=== PATIENT | female | born 1960 | race African-American/Black ===

== ENCOUNTER 2017-03-16 08:51 | Emergency (ER) | payer OTHER ==
[~2017-03-16] VITALS: Ht 175.3 cm; Wt 85.7 kg
[~2017-03-16 08:51] MED LIST: CLIN300C8 PO; ERGO500027 PO; FENT1PAT17 TD; FURO40TA4 PO; HYDR-971 PO; HYDR12.53 PO; HYDR200T5 PO; HYDR40TA PO; NITR100C62 PO; OMEP20CA9 PO; TRAM50TA PO
[2017-03-16 09:13] VITALS: BP 137/89
[2017-03-16] MEDS ORDERED: MUPIROCIN 2 % TOPICAL CREAM 15GM TUBE. TP STA (09:24)
[2017-03-16] MEDS ORDERED: DIPHTH,PERTUSS(ACELL),TET TOX 0.5 ML DISP.SYRIN. VAX IM ONE (09:30)
[2017-03-16] MEDS ORDERED: HYDROcodone/APAP 5/325MG 1 TAB TABLET PO ONE (09:30)
[2017-03-16] MEDS ORDERED: CLINDAMYCIN HCL 150 MG CAPSULE. PO ONE (09:30)
--- NOTE | 2017-03-16 09:32 | PHYS DOC ---
Past Medical History Past Medical History: Arthritis, Hypertension, Other Additional Past Medical Histor: LUPUS Past Surgical History: Alcohol Use: None Drug Use: Marijuana Adult General Chief Complaint Chief Complaint: ABSCESS HPI HPI Patient is a 56 year old female with history of hypertension, arthritis and lupus who presents with "boils" on her abdomen and right inner thigh that she's had for 1-1/2 weeks. Patient states the boils opened up yesterday and drained. Patient denies any fever. Denies any nausea vomiting. She states she has a new PCP Dr. Bond Review of Systems Review of Systems Constitutional: Denies fever or chills [] Eyes: Denies change in visual acuity, redness, or eye pain [] Musculoskeletal: Denies back pain or joint pain [] Integument: Right lower abdomen abscess and right inner thigh abscess Neurologic: Denies headache, focal weakness or sensory changes [] Endocrine: Denies polyuria or polydipsia [] Current Medications Current Medications Current Medications Medications (Trade) Dose Ordered Sig/[place] Start Time Stop Time Status Last Admin Dose Admin Acetaminophen/ Hydrocodone Bitart (Lortab 5/325) 2 tab 1X ONCE 03/16/17 09:30 03/16/17 09:31 DC Clindamycin HCl (Cleocin) 450 mg 1X ONCE 03/16/17 09:30 03/16/17 09:31 DC Diphtheria/ Tetanus/Acell Pertussis (Boostrix) 0.5 ml ONCE ONCE 03/16/17 09:30 03/16/17 09:31 DC Mupirocin (Bactroban) 1 naif 1X STAT 03/16/17 09:24 03/16/17 09:27 DC Allergies Allergies Allergies Coded Allergies Type Severity Reaction Last Updated Verified Penicillins Allergy Intermediate 01/02/14 Yes Physical Exam Physical Exam Constitutional: Well developed, well nourished, no acute distress, non-toxic appearance. [] HENT: Normocephalic, atraumatic, bilateral external ears normal, oropharynx moist, no oral exudates, nose normal. [] Eyes: PERRLA, EOMI, conjunctiva normal, no discharge. [] Neck: Normal range of motion, no tenderness, supple, no stridor. [] Cardiovascular:Heart rate regular rhythm, no murmur [] Lungs & Thorax: Bilateral breath sounds clear to auscultation [] Abdomen: Bowel sounds normal, soft, no tenderness, no masses, no pulsatile masses. [] Skin: Right abdominal flap with a stage II ulcer approximately 3 x 3 cm and right inner thigh with another stage II ulcer approximately 2 x 2 centimeters. Back: No tenderness, no CVA tenderness. [] Extremities: No tenderness, no cyanosis, no clubbing, ROM intact, no edema. [] Neurologic: Alert and oriented X 3, normal motor function, normal sensory function, no focal deficits noted. [] Psychologic: Affect normal, judgement normal, mood normal. [] Current Patient Data Vital Signs Vital Signs Date Time Temp Pulse Resp B/P (MAP) Pulse Ox O2 Delivery O2 Flow Rate FiO2 03/16/17 09:13 97.9 67 20 98 Room Air 97.9 EKG EKG [] Radiology/Procedures Radiology/Procedures [] Course & Med Decision Making Course & Med Decision Making Pertinent Labs and Imaging studies reviewed. (See chart for details) Patient has two stage II ulcers one on the right lower abdominal flap and the other one on the right inner thigh. She states they were abscesses that opened up yesterday. She was given tetanus in the ED, given clindamycin in the ED. Discharged with clindamycin and Bactroban cream and [place] for pain. I recommended she follows up with the wound clinic tomorrow for wound care. She was discharged with instructions to return to the ED symptoms worsen. Dragon Disclaimer Dragon Disclaimer This electronic medical record was generated, in whole or in part, using a voice recognition dictation system. Departure Departure Impression: Primary Impression: Abdominal wall abscess Additional Impression: Abscess of right thigh Disposition: 01 HOME, SELF-CARE Condition: STABLE Referrals: NO PCP (PCP) Follow up with the wound clinic at [facility] tomorrow. Call them today for appointment. Their phone number is [phone] Patient Instructions: Abscess Additional Instructions: You were seen for abscesses that opened up on your abdomen and right inner thigh. We put you on antibiotics. Use them as prescribed. Keep the affected areas clean and dry. Follow-up with the wound clinic by calling the office tomorrow. The wound clinic is at [facility]. Their phone number is [phone]. Scripts Mupirocin Calcium (BACTROBAN CREAM) 15 Gm Cream..g. 1 NAIF TP TID, #30 GM Prov: KAMILA CANAS APRN 03/16/17 Clindamycin Hcl (CLINDAMYCIN HCL) 150 Mg Capsule 3 CAP PO TID, #90 CAP Prov: KAMILA CANAS APRN 03/16/17 Hydrocodone/Apap 5-325 (NORCO 5-325 TABLET) 1 Each Tablet 1-2 TAB PO Q4-6HRS, #20 TAB Prov: KAMILA CANAS APRN 03/16/17 Problem Qualifiers KAMILA CANAS APRN Mar 16, 2017 09:32
[2017-03-16] MEDS ORDERED: CLIN150C14 PO (09:42)
[2017-03-16] MEDS ORDERED: MUPI15CR TP (09:42)
[2017-03-16] MEDS ORDERED: HYDR-971 PO (09:42)
== END 2017-03-16 10:13 | disposition home or self-care (01) ==
LOC: ER 08:51
DX: L02.211 Cutaneous abscess of abdominal wall (principal); L02.415 Cutaneous abscess of right lower limb; I10 Essential (primary) hypertension; M19.90 Unspecified osteoarthritis, unspecified site; M32.9 Systemic lupus erythematosus, unspecified; F12.10 Cannabis abuse, uncomplicated; Z98.890 Other specified postprocedural states; Z88.0 Allergy status to penicillin
CPT/HCPCS: 90471; 90715; 99284-25

== ENCOUNTER 2017-05-19 18:32 | Inpatient (IN) | payer OTHER ==
[~2017-05-19] VITALS: Ht 175.3 cm; Wt 89.2 kg
[~2017-05-19 18:32] MED LIST changes: +CLIN150C14 PO; +MUPI15CR TP
[2017-05-19] MEDS ORDERED: NITROGLYCERIN SUBLINGUAL 0.4 MG BOTTLE OF 25. SL PRN (18:45)
[2017-05-19] MEDS ORDERED: MORPHINE SULFATE 2 MG/ML DISP.SYRIN. IV/SQ PRN (18:45)
[2017-05-19] MEDS ORDERED: ONDANSETRON PF 4 MG/2 ML VIAL. IV ONE (19:00)
[2017-05-19] MEDS ORDERED: IV NORMAL SALINE 1000ML BAG 1,000 ML IV ONE ×2 (19:00→20:15)
[2017-05-19] MEDS ORDERED: MORPHINE SULFATE 4 MG/ML DISP.SYRIN. IV/SQ PRN (19:23)
--- NOTE | 2017-05-19 19:23 | PHYS DOC ---
Past Medical History Past Medical History: Arthritis, Hypertension, Other Additional Past Medical Histor: LUPUS Past Surgical History: Alcohol Use: None Drug Use: Marijuana Adult General Chief Complaint Chief Complaint: CHEST PAIN HPI HPI Patient is a 56 year old -[place] female who presents with multiple complaints. She states she's has some chest discomfort only occurs when she turned [id number], she also complains about abdominal pain and 2 episodes of vomiting. She states this all started 2 days ago. She also complains about a fever states her friend checked her temperature was 102 earlier today. She states she's been urinating without any difficulty denies any cough. She states this happens when her lupus flares up. She complains about generalized bodyaches. She also states she hasn't had anything to eat or drink the last 2 days secondary not feeling well. She does admit to marijuana abuse and smoking cigarettes. Review of Systems Review of Systems Constitutional: Positive for fevers Eyes: Denies change in visual acuity, redness, or eye pain [] HENT: Denies nasal congestion or sore throat [] Respiratory: Denies cough or shortness of breath [] Cardiovascular: No additional information not addressed in HPI [] GI: Denies abdominal pain, nausea, vomiting, bloody stools or diarrhea [] : Denies dysuria or hematuria [] Musculoskeletal: Denies back pain, positive for generalized bodyaches Integument: Denies rash or skin lesions [] Neurologic: Denies headache, focal weakness or sensory changes [] Endocrine: Denies polyuria or polydipsia [] Current Medications Current Medications Current Medications Medications (Trade) Dose Ordered Sig/[facility] Start Time Stop Time Status Last Admin Dose Admin Ceftriaxone Sodium 1 gm/ Sodium Chloride 50 ml @ 100 mls/hr 1X STAT 05/19/17 20:17 05/19/17 20:46 UNV Ceftriaxone Sodium 50 ml @ 100 mls/hr 1X ONCE 05/19/17 20:30 05/19/17 20:59 Morphine Sulfate 2 mg PRN Q2HR PRN 05/19/17 20:30 05/20/17 20:29 Nitroglycerin (Nitrostat) 0.4 mg PRN Q5MIN PRN 05/19/17 18:45 05/20/17 18:44 05/19/17 19:41 0.4 MG Ondansetron HCl (Zofran) 4 mg PRN Q8HRS PRN 05/19/17 20:30 05/20/17 20:29 Sodium Chloride 1,000 ml @ 1,000 mls/hr 1X ONCE 05/19/17 20:15 05/19/17 21:14 Allergies Allergies Allergies Coded Allergies Type Severity Reaction Last Updated Verified Penicillins Allergy Intermediate 01/02/14 Yes Physical Exam Physical Exam Constitutional: Well developed, well nourished, no acute distress, non-toxic appearance. [] HENT: Normocephalic, atraumatic, bilateral external ears normal, oropharynx moist, no oral exudates, nose normal. [] Eyes: PERRLA, EOMI, conjunctiva normal, no discharge. [] Neck: Normal range of motion, no tenderness, supple, no stridor. [] Cardiovascular:Heart rate regular rhythm, tachycardic, no murmur [] Lungs & Thorax: Bilateral breath sounds clear to auscultation [] Abdomen: Bowel sounds normal, soft, mild tender palpation right lower quadrant, no rebound or guarding, no masses, no pulsatile masses. [] Skin: Warm, dry, no erythema, no rash. [] Back: No tenderness, no CVA tenderness. [] Extremities: No tenderness, no cyanosis, no clubbing, ROM intact, no edema. [] Neurologic: Alert and oriented X 3, normal motor function, normal sensory function, no focal deficits noted. [] Psychologic: Affect normal, judgement normal, mood normal. [] Current Patient Data Vital Signs Vital Signs Date Time Temp Pulse Resp B/P (MAP) Pulse Ox O2 Delivery O2 Flow Rate FiO2 05/19/17 19:41 103 103/70 05/19/17 19:39 18 95 Room Air 05/19/17 18:41 98.0 98.0 Lab Values Laboratory Tests Test 05/19/17 19:20 05/19/17 19:30 05/19/17 19:47 White Blood Count 2.2 x10^3/uL (4.0-11.0) L Red Blood Count 4.62 x10^6/uL (3.50-5.40) Hemoglobin 13.4 g/dL (12.0-15.5) Hematocrit 40.7 % (36.0-47.0) Mean Corpuscular Volume 88 fL (79-100) Mean Corpuscular Hemoglobin 29 pg (25-35) Mean Corpuscular Hemoglobin Concent 33 g/dL (31-37) Red Cell Distribution Width 14.7 % (11.5-14.5) H Platelet Count 175 x10^3/uL (140-400) Neutrophils (%) (Auto) 44 % (31-73) Lymphocytes (%) (Auto) 45 % (24-48) Monocytes (%) (Auto) 8 % (0-9) Eosinophils (%) (Auto) 2 % (0-3) Basophils (%) (Auto) 1 % (0-3) Neutrophils # (Auto) 1.0 x10^3uL (1.8-7.7) L Lymphocytes # (Auto) 1.0 x10^3/uL (1.0-4.8) Monocytes # (Auto) 0.2 x10^3/uL (0.0-1.1) Eosinophils # (Auto) 0.0 x10^3/uL (0.0-0.7) Basophils # (Auto) 0.0 x10^3/uL (0.0-0.2) Prothrombin Time 14.5 SEC (11.7-14.0) H Prothrombin Time INR 1.2 (0.8-1.1) H Urine Collection Type Unknown Urine Color Disha Urine Clarity Turbid Urine pH 5.0 Urine Specific [place] 1.020 Urine Protein 100 mg/dL (NEG-TRACE) Urine Glucose (UA) Negative mg/dL (NEG) Urine Ketones (Stick) Trace mg/dL (NEG) Urine Blood Large (NEG) Urine Nitrite Negative (NEG) Urine Bilirubin Moderate (NEG) Urine Urobilinogen Dipstick 1.0 mg/dL (0.2 mg/dL) Urine Leukocyte Esterase Moderate (NEG) Urine RBC 0 /HPF (0-2) Urine WBC 5-10 /HPF (0-4) Urine Squamous Epithelial Cells Mod /LPF Urine Bacteria Many /HPF (0-FEW) Urine Hyaline Casts Few /HPF Urine Mucus Mod /LPF Urine Opiates Screen Neg (NEG) Urine Methadone Screen Neg (NEG) Urine Barbiturates Neg (NEG) Urine Phencyclidine Screen Neg (NEG) Urine Amphetamine/Methamphetamine Neg (NEG) Urine Benzodiazepines Screen Neg (NEG) Urine Cocaine Screen Pos (NEG) Urine Cannabinoids Screen Pos (NEG) Urine Ethyl Alcohol Neg (NEG) Sodium Level 135 mmol/L (136-145) L Potassium Level 3.8 mmol/L (3.5-5.1) Chloride Level 100 mmol/L (98-107) Carbon Dioxide Level 23 mmol/L (21-32) Anion Gap 12 (6-14) Blood Urea Nitrogen 42 mg/dL (7-20) H Creatinine 2.8 mg/dL (0.6-1.0) H Estimated GFR (Cockcroft-Gault) 21.2 Glucose Level 115 mg/dL (70-99) H Calcium Level 8.7 mg/dL (8.5-10.1) Magnesium Level 2.2 mg/dL (1.8-2.4) Total Bilirubin 0.6 mg/dL (0.2-1.0) Direct Bilirubin 0.3 mg/dL (0.0-0.2) H Aspartate Amino Transferase (AST) 40 U/L (15-37) H Alanine Aminotransferase (ALT) 58 U/L (14-59) Alkaline Phosphatase 91 U/L (46-116) Creatine Kinase 25 U/L (26-192) L Creatine Kinase MB (Mass) < 0.5 ng/mL (0.0-3.6) Creatine Kinase MB Relative Index % (0-4) Troponin I Quantitative < 0.017 ng/mL (0.000-0.055) YL-Xsc-J-Type Natriuretic Peptide 178 pg/mL (0-124) H Total Protein 8.2 g/dL (6.4-8.2) Albumin 3.0 g/dL (3.4-5.0) L Lipase 73 U/L (73-393) Thyroid Stimulating Hormone (TSH) 1.089 uIU/mL (0.358-3.74) Laboratory Tests 05/19/17 19:20 Laboratory Tests 05/19/17 19:47 EKG EKG EKG shows sinus tachycardia [address] elevations, T-wave flattening in aVL, left axis deviation noted, incomplete right bundle branch morphology noted, QTC 430 ms, as interpreted by me. Radiology/Procedures Radiology/Procedures One view chest x-ray did not show any focal consolidations, bony abnormalities, pneumothorax, as interpreted by me. [] Impressions: Acute renal failure Chest pain Lupus Hypertension Marijuana abuse Cocaine abuse Course & Med Decision Making Course & Med Decision Making Pertinent Labs and Imaging studies reviewed. (See chart for details) Patient presented with tachycardia and chest pain. EKG does not show any acute abnormality's and her tachycardia has improved with 1 L of fluids down to 87. She is afebrile even though she told me she had a fever at home. Urine shows positive for possible urinary tract infection in addition to marijuana and cocaine. She still denies using cocaine but admits to marijuana use. Chest x- ray does not show any focal lesions or abnormalities. I did obtain 2 blood cultures and give her a dose of ceftriaxone. She has a allergy to penicillin and she has tolerated ceftriaxone in the past. I'm not concerned with her abdominal pain that she was mildly tender in the right lower quadrant. This could be related to her urinary tract infection. Patient is being admitted to Dr. Gleason. I spoke with Dr. Norman and she is not a patient of Dr. Norman's. I did give the patient 2 L of normal saline secondary to her renal insufficiency. Will defer to hospitalist regarding the need of prednisone/steroids at this time. I believe her renal failure at this time is likely dehydration. Dragon Disclaimer Dragon Disclaimer This electronic medical record was generated, in whole or in part, using a voice recognition dictation system. Departure Departure Impression: Primary Impression: UTI (urinary tract infection) Additional Impression: Chest pain Disposition: ADMITTED INPATIENT Admitting Physician: Mirtha Gleason Condition: STABLE Referrals: ISABEL NORMAN MD (PCP) Problem Qualifiers Primary Impression: UTI (urinary tract infection) Urinary tract infection type: acute cystitis Hematuria presence: without hematuria Qualified Codes: N30.00 - Acute cystitis without hematuria Additional Impression: Chest pain Chest pain type: other chest pain Qualified Codes: R07.89 - Other chest pain LURDES OJEDA MD May 19, 2017 19:23
[2017-05-19 19:33] LABS: BASO % 1 % (0-3); EOS % 2 % (0-3); HEMATOCRIT 40.7 % (36.0-47.0); HEMOGLOBIN 13.4 g/dL (12.0-15.5); LYMPH % 45 % (24-48); MEAN CORPUSCULAR HEMOGLOBIN 29 pg (25-35); MEAN CORPUSCULAR HGB CONC 33 g/dL (31-37); MEAN CORPUSCULAR VOLUME 88 fL (79-100); MONO % 8 % (0-9); NEUT % 44 % (31-73); PLATELET COUNT 175 x10^3/uL (140-400); RED BLOOD COUNT 4.62 x10^6/uL (3.50-5.40); RED CELL DISTRIBUTION WIDTH 14.7 % (11.5-14.5); WHITE BLOOD COUNT 2.2 x10^3/uL (4.0-11.0)
[2017-05-19 19:43] LABS: INR 1.2 (0.8-1.1); PROTHROMBIN TIME PATIENT 14.5 SEC (11.7-14.0)
[2017-05-19 19:52] LABS: BILIRUBIN,URINE MODERATE (NEG); GLUCOSE,URINE NEGATIVE (NEG); NITRITE,URINE NEGATIVE (NEG); PROTEIN,URINE 100 mg/dL (NEG-TRACE)
[2017-05-19 19:58] LABS: RBC,URINE 0 /HPF (0-2)
[2017-05-19 19:59] LABS: BACTERIA,URINE MANY /HPF (0-FEW); BARBITURATES NEG (NEG); BENZODIAZEPINES NEG (NEG); CANNABINOIDS POS (NEG); COCAINE POS (NEG); METHADONE NEG (NEG); OPIATES NEG (NEG); PHENCYCLIDINE NEG (NEG); SQUAMOUS EPITHELIAL CELL,UR MOD /LPF
[2017-05-19 20:10] LABS: CALCIUM 8.7 mg/dL (8.5-10.1); CREATININE 2.8 mg/dL (0.6-1.0); GFR 21.2; POTASSIUM 3.8 mmol/L (3.5-5.1)
[2017-05-19 20:17] LABS: DIRECT BILIRUBIN 0.3 mg/dL (0.0-0.2); MAGNESIUM 2.2 mg/dL (1.8-2.4); TOTAL BILIRUBIN 0.6 mg/dL (0.2-1.0); TOTAL PROTEIN 8.2 g/dL (6.4-8.2)
[2017-05-19 20:26] LABS: CKMB MASS < 0.5 ng/mL (0.0-3.6); CREATINE KINASE 25 U/L (26-192)
[2017-05-19] MEDS ORDERED: MORPHINE SULFATE 4 MG/ML DISP.SYRIN. IV PRN (20:30)
[2017-05-19] MEDS ORDERED: ONDANSETRON PF 4 MG/2 ML VIAL. IV PRN ×2 (20:30→21:00)
[2017-05-19] MEDS ORDERED: hydrALAZINE 20 MG/ML VIAL. IVP PRN (21:00)
[2017-05-19] MEDS ORDERED: ACETAMINOPHEN 325 MG TABLET. PO PRN (21:00)
[2017-05-19] MEDS ORDERED: FAMOTIDINE 20 MG TABLET. PO ONE (21:00)
[2017-05-19] MEDS ORDERED: DOCUSATE SODIUM 100 MG CAPSULE. PO PRN (21:00)
[2017-05-19] MEDS ORDERED: IV NORMAL SALINE 1000ML BAG 1,000 ML IV PRN (21:00)
[2017-05-19] MEDS ORDERED: predniSONE 20 MG TABLET PO ONE (21:00)
--- NOTE | 2017-05-19 21:02 | PDOC1 ---
History and Physical Date of Admission Date of Admission 05/19/17 Identification/Chief Complaint Chief Complaint chest pain, whole body pain, lupus flare Problems: Source Source: Chart review, Patient History of Present Illness History of Present Illness HPI HPI Patient is a 56 year old -[place] female who presents with multiple complaints x3 days, including chest pain, whole body pain, "lupus flare". pt said her PCP is dr. Bond, who said no as per ERP. pt said she was definitely diagnosed as lupus, but not following any rheum for a long time and has an appt soon, and not treated currently. Pt feel bl face pain, with skin rash, bl ear pain, and headache. ALSO chest pain , sharp, with sob, nausea x3days, pain radiating to right shoulder. She also has diffuse abd pain with tenderness. low po intake, denies dysuria, frequence, urgency, but has incontinence x1 week. denies fver, chills, cough, + vomiting today, no diarrhea. She also complains about a fever states her friend checked her temperature was 102 earlier today. Past Medical History Cardiovascular: HTN, Other Pulmonary: Asthma GI: No pertinent hx Heme/Onc: Other Hepatobiliary: No pertinent hx Psych: No pertinent hx Rheumatologic: Other Infectious disease: No pertinent hx Renal/: No pertinent hx Endocrine: Diabetes Past Surgical History Past Surgical History: Family History Family History: Coronary Artery Disease Social History Smoke: <1 pack per day ALCOHOL: none Drugs: Cocaine, Marijuana Current Problem List Problem List Problems Medical Problems: (1) Chest pain Status: Acute (2) UTI (urinary tract infection) Status: Acute Current Medications Current Medications Current Medications Medications (Trade) Dose Ordered Sig/[place] Start Time Stop Time Status Last Admin Dose Admin Acetaminophen (Tylenol) 650 mg PRN Q6HRS PRN 05/19/17 21:00 UNV Ceftriaxone Sodium 1 gm/ Sodium Chloride 50 ml @ 100 mls/hr Q24H 05/20/17 08:00 UNV Ceftriaxone Sodium 50 ml @ 100 mls/hr 1X ONCE 05/19/17 20:30 05/19/17 20:59 05/19/17 20:35 100 MLS/HR Docusate Sodium (Colace) 100 mg PRN DAILY PRN 05/19/17 21:00 UNV Hydralazine HCl (Apresoline) 10 mg PRN Q4HRS PRN 05/19/17 21:00 UNV Morphine Sulfate 2 mg PRN Q2HR PRN 05/19/17 21:00 UNV Nitroglycerin (Nitrostat) 0.4 mg PRN Q5MIN PRN 05/19/17 18:45 05/20/17 18:44 05/19/17 19:41 0.4 MG Ondansetron HCl (Zofran) 4 mg PRN Q6HRS PRN 05/19/17 21:00 UNV Sodium Chloride 1,000 ml @ 1,000 mls/hr 1X ONCE 05/19/17 20:15 05/19/17 21:14 05/19/17 20:35 1,000 MLS/HR Tramadol HCl (Ultram) 50 mg PRN Q6HRS PRN 05/19/17 21:00 UNV Allergies Allergies Allergies Coded Allergies Type Severity Reaction Last Updated Verified Penicillins Allergy Intermediate 01/02/14 Yes ROS Review of System CONSTITUTIONAL: No fever or chills EYES: No recent changes SKIN: No rash or itching CARDIOVASCULAR: No chest pain, syncope, palpitations, or edema RESPIRATORY: No SOB or cough GASTROINTESTINAL: No nausea, vomiting or abdominal pain NEUROLOGICAL: No headaches or weakness ENDOCRINE: No cold or heat intolerance GENITOURINARY: No urgency or frequency of urination MUSCULOSKELETAL: No back pain or joint pain LYMPHATICS: No enlarged lymph nodes PSYCHIATRIC: No anxiety or depression Physical Exam Physical Exam GEN.: No apparent distress. Alert and oriented. HEENT: Head is normocephalic, atraumatic. bl face some dark rash, tenderness. NECK: Supple. LUNGS: Clear to auscultation. chest wall and abd diffused moderate tenderness. HEART: RRR, S1, S2 present. Peripheral pulses intact ABDOMEN: Soft, Positive bowel sounds. EXTREMITIES: Without any cyanosis. NEUROLOGIC: Normal speech, normal tone PSYCHIATRIC: Normal affect, normal mood. SKIN: No ulcerations Vitals Vitals Vital Signs Date Time Temp Pulse Resp B/P (MAP) Pulse Ox O2 Delivery O2 Flow Rate FiO2 05/19/17 20:44 90 18 107/60 (76) 96 Room Air 05/19/17 18:41 98.0 98.0 Labs Labs Laboratory Tests Test 05/19/17 19:20 05/19/17 19:30 05/19/17 19:47 White Blood Count 2.2 x10^3/uL (4.0-11.0) Red Blood Count 4.62 x10^6/uL (3.50-5.40) Hemoglobin 13.4 g/dL (12.0-15.5) Hematocrit 40.7 % (36.0-47.0) Mean Corpuscular Volume 88 fL (79-100) Mean Corpuscular Hemoglobin 29 pg (25-35) Mean Corpuscular Hemoglobin Concent 33 g/dL (31-37) Red Cell Distribution Width 14.7 % (11.5-14.5) Platelet Count 175 x10^3/uL (140-400) Neutrophils (%) (Auto) 44 % (31-73) Lymphocytes (%) (Auto) 45 % (24-48) Monocytes (%) (Auto) 8 % (0-9) Eosinophils (%) (Auto) 2 % (0-3) Basophils (%) (Auto) 1 % (0-3) Neutrophils # (Auto) 1.0 x10^3uL (1.8-7.7) Lymphocytes # (Auto) 1.0 x10^3/uL (1.0-4.8) Monocytes # (Auto) 0.2 x10^3/uL (0.0-1.1) Eosinophils # (Auto) 0.0 x10^3/uL (0.0-0.7) Basophils # (Auto) 0.0 x10^3/uL (0.0-0.2) Prothrombin Time 14.5 SEC (11.7-14.0) Prothromb Time International Ratio 1.2 (0.8-1.1) Urine Collection Type Unknown Urine Color Disha Urine Clarity Turbid Urine pH 5.0 Urine Specific [place] 1.020 Urine Protein 100 mg/dL (NEG-TRACE) Urine Glucose (UA) Negative mg/dL (NEG) Urine Ketones (Stick) Trace mg/dL (NEG) Urine Blood Large (NEG) Urine Nitrite Negative (NEG) Urine Bilirubin Moderate (NEG) Urine Urobilinogen Dipstick 1.0 mg/dL (0.2 mg/dL) Urine Leukocyte Esterase Moderate (NEG) Urine RBC 0 /HPF (0-2) Urine WBC 5-10 /HPF (0-4) Urine Squamous Epithelial Cells Mod /LPF Urine Bacteria Many /HPF (0-FEW) Urine Hyaline Casts Few /HPF Urine Mucus Mod /LPF Urine Opiates Screen Neg (NEG) Urine Methadone Screen Neg (NEG) Urine Barbiturates Neg (NEG) Urine Phencyclidine Screen Neg (NEG) Urine Amphetamine/Methamphetamine Neg (NEG) Urine Benzodiazepines Screen Neg (NEG) Urine Cocaine Screen Pos (NEG) Urine Cannabinoids Screen Pos (NEG) Urine Ethyl Alcohol Neg (NEG) Sodium Level 135 mmol/L (136-145) Potassium Level 3.8 mmol/L (3.5-5.1) Chloride Level 100 mmol/L (98-107) Carbon Dioxide Level 23 mmol/L (21-32) Anion Gap 12 (6-14) Blood Urea Nitrogen 42 mg/dL (7-20) Creatinine 2.8 mg/dL (0.6-1.0) Estimated GFR (Cockcroft-Gault) 21.2 Glucose Level 115 mg/dL (70-99) Calcium Level 8.7 mg/dL (8.5-10.1) Magnesium Level 2.2 mg/dL (1.8-2.4) Total Bilirubin 0.6 mg/dL (0.2-1.0) Direct Bilirubin 0.3 mg/dL (0.0-0.2) Aspartate Amino Transf (AST/SGOT) 40 U/L (15-37) Alanine Aminotransferase (ALT/SGPT) 58 U/L (14-59) Alkaline Phosphatase 91 U/L (46-116) Creatine Kinase 25 U/L (26-192) Creatine Kinase MB (Mass) < 0.5 ng/mL (0.0-3.6) Creatine Kinase MB Relative Index % (0-4) Troponin I Quantitative < 0.017 ng/mL (0.000-0.055) IL-Uny-G-Type Natriuretic Peptide 178 pg/mL (0-124) Total Protein 8.2 g/dL (6.4-8.2) Albumin 3.0 g/dL (3.4-5.0) Lipase 73 U/L (73-393) Thyroid Stimulating Hormone (TSH) 1.089 uIU/mL (0.358-3.74) Laboratory Tests Test 05/19/17 19:20 05/19/17 19:30 05/19/17 19:47 White Blood Count 2.2 x10^3/uL (4.0-11.0) Red Blood Count 4.62 x10^6/uL (3.50-5.40) Hemoglobin 13.4 g/dL (12.0-15.5) Hematocrit 40.7 % (36.0-47.0) Mean Corpuscular Volume 88 fL (79-100) Mean Corpuscular Hemoglobin 29 pg (25-35) Mean Corpuscular Hemoglobin Concent 33 g/dL (31-37) Red Cell Distribution Width 14.7 % (11.5-14.5) Platelet Count 175 x10^3/uL (140-400) Neutrophils (%) (Auto) 44 % (31-73) Lymphocytes (%) (Auto) 45 % (24-48) Monocytes (%) (Auto) 8 % (0-9) Eosinophils (%) (Auto) 2 % (0-3) Basophils (%) (Auto) 1 % (0-3) Neutrophils # (Auto) 1.0 x10^3uL (1.8-7.7) Lymphocytes # (Auto) 1.0 x10^3/uL (1.0-4.8) Monocytes # (Auto) 0.2 x10^3/uL (0.0-1.1) Eosinophils # (Auto) 0.0 x10^3/uL (0.0-0.7) Basophils # (Auto) 0.0 x10^3/uL (0.0-0.2) Prothrombin Time 14.5 SEC (11.7-14.0) Prothromb Time International Ratio 1.2 (0.8-1.1) Urine Collection Type Unknown Urine Color Disha Urine Clarity Turbid Urine pH 5.0 Urine Specific [place] 1.020 Urine Protein 100 mg/dL (NEG-TRACE) Urine Glucose (UA) Negative mg/dL (NEG) Urine Ketones (Stick) Trace mg/dL (NEG) Urine Blood Large (NEG) Urine Nitrite Negative (NEG) Urine Bilirubin Moderate (NEG) Urine Urobilinogen Dipstick 1.0 mg/dL (0.2 mg/dL) Urine Leukocyte Esterase Moderate (NEG) Urine RBC 0 /HPF (0-2) Urine WBC 5-10 /HPF (0-4) Urine Squamous Epithelial Cells Mod /LPF Urine Bacteria Many /HPF (0-FEW) Urine Hyaline Casts Few /HPF Urine Mucus Mod /LPF Urine Opiates Screen Neg (NEG) Urine Methadone Screen Neg (NEG) Urine Barbiturates Neg (NEG) Urine Phencyclidine Screen Neg (NEG) Urine Amphetamine/Methamphetamine Neg (NEG) Urine Benzodiazepines Screen Neg (NEG) Urine Cocaine Screen Pos (NEG) Urine Cannabinoids Screen Pos (NEG) Urine Ethyl Alcohol Neg (NEG) Sodium Level 135 mmol/L (136-145) Potassium Level 3.8 mmol/L (3.5-5.1) Chloride Level 100 mmol/L (98-107) Carbon Dioxide Level 23 mmol/L (21-32) Anion Gap 12 (6-14) Blood Urea Nitrogen 42 mg/dL (7-20) Creatinine 2.8 mg/dL (0.6-1.0) Estimated GFR (Cockcroft-Gault) 21.2 Glucose Level 115 mg/dL (70-99) Calcium Level 8.7 mg/dL (8.5-10.1) Magnesium Level 2.2 mg/dL (1.8-2.4) Total Bilirubin 0.6 mg/dL (0.2-1.0) Direct Bilirubin 0.3 mg/dL (0.0-0.2) Aspartate Amino Transf (AST/SGOT) 40 U/L (15-37) Alanine Aminotransferase (ALT/SGPT) 58 U/L (14-59) Alkaline Phosphatase 91 U/L (46-116) Creatine Kinase 25 U/L (26-192) Creatine Kinase MB (Mass) < 0.5 ng/mL (0.0-3.6) Creatine Kinase MB Relative Index % (0-4) Troponin I Quantitative < 0.017 ng/mL (0.000-0.055) YE-Bbn-O-Type Natriuretic Peptide 178 pg/mL (0-124) Total Protein 8.2 g/dL (6.4-8.2) Albumin 3.0 g/dL (3.4-5.0) Lipase 73 U/L (73-393) Thyroid Stimulating Hormone (TSH) 1.089 uIU/mL (0.358-3.74) VTE Prophylaxis Ordered VTE Prophylaxis Devices: Yes VTE Pharmacological Prophylaxi: Yes Assessment/Plan Assessment/Plan possible lupus flare with facial rash chest pain, abd pain, muscular pain likely MANASA, dehydration, vasomotor uti h/o lupus not on meds HTN drug abuse with marijuana usually, also + cocaine in drug tox leukopenia mild malnutrition tobaccoism plan: ceftriaxone for now, fu ucx ivf with bolus check c3, c4, dsDNA, rheum consult renal consult labs tmr prednisone 60mg po x1 dvt ppx cycle CE dvt, gi ppx pain control MICH WAYNE MD May 19, 2017 21:02
[2017-05-19] MEDS: HEPARIN PF for SUB-Q USE 5,000 UNIT/0.5 ML VIAL. SQ SCH (23:06)
[2017-05-19 23:38] VITALS: BP 107/62
[2017-05-20] MEDS: MORPHINE SULFATE 4 MG/ML DISP.SYRIN. IV PRN ×3 (00:40→21:07)
[2017-05-20 03:16] VITALS: BP 118/75
[2017-05-20 04:36] LABS: BASO % 0 % (0-3); EOS % 0 % (0-3); HEMATOCRIT 36.3 % (36.0-47.0); HEMOGLOBIN 11.8 g/dL (12.0-15.5); LYMPH # 0.4 x10^3/uL (1.0-4.8); LYMPH % 18 % (24-48); MEAN CORPUSCULAR HEMOGLOBIN 29 pg (25-35); MEAN CORPUSCULAR HGB CONC 33 g/dL (31-37); MEAN CORPUSCULAR VOLUME 88 fL (79-100); MONO % 8 % (0-9); NEUT % 73 % (31-73); PLATELET COUNT 157 x10^3/uL (140-400); RED BLOOD COUNT 4.14 x10^6/uL (3.50-5.40); RED CELL DISTRIBUTION WIDTH 14.1 % (11.5-14.5); WHITE BLOOD COUNT 2.2 x10^3/uL (4.0-11.0)
[2017-05-20 05:01] LABS: ALBUMIN 2.8 g/dL (3.4-5.0); ALBUMIN/GLOBULIN RATIO 0.6 (1.0-1.7); CALCIUM 8.3 mg/dL (8.5-10.1); CREATININE 1.9 mg/dL (0.6-1.0); GFR 33.2; POTASSIUM 4.4 mmol/L (3.5-5.1); TOTAL BILIRUBIN 0.4 mg/dL (0.2-1.0); TOTAL PROTEIN 7.2 g/dL (6.4-8.2)
--- NOTE | 2017-05-20 05:49 | ACF ---
Admission Forms Criteria URINARY COMPLICATIONS (Place 'X' for any and all applicable criteria): Ongoing inpatient care may be needed for Urinary complications with 1 or more of the following: [ ]I. Reduced urine output (eg, despite adequate hydration) [ ]II. Renal failure. (Also use Renal Failure: Common Complications and Conditions as appropriate) [ ]III. Urinary retention requiring drainage or surgery(19)(20)(21)(33)(34) [ ]IV. Postobstructive diuresis requiring close monitoring of urine output and intravenous compensation for excessive fluid losses(35) [X]V. Urinary tract infection requiring inpatient care as indicated by ANY ONE of the following(8)(19)(20): [ ]a) Hemodynamic instability [ ]b) Severe symptoms (eg, high fever, severe pain) [ ]c) Vomiting or dehydration requiring ongoing inpatient care [X]d) IV antibiotic needs that cannot be managed at lower level of care [ ]e) Obstruction of collecting system by stone or tumor Extended stay beyond goal length of stay for primary condition may be needed until ALL of the following are present(3)(4)(5)(8): [ ]a) Renal function (creatinine) at baseline, or daily decreases in creatinine consistent with renal function return [ ]b) Voiding adequately or with urinary catheter or percutaneous suprapubic tube and management regimen in place that is performable at lower level of care. [ ]c) Urine output adequate [ ]d) Fever absent or resolving [ ]e) Infection absent or treatable at next level of care The original [employer] content created by [employer] has been revised. The portions of the content which have been revised are identified through the use of italic text, and [facility] has neither reviewed nor approved the modified material. All other unmodified content is copyright [facility] Please see references footnoted in the original [facility] edition 2014 Admission Criteria Met?: Yes UMER ODELL May 20, 2017 05:49
[2017-05-20] MEDS: HEPARIN PF for SUB-Q USE 5,000 UNIT/0.5 ML VIAL. SQ SCH ×3 (05:57→22:00)
[2017-05-20] MEDS ORDERED: DEXTROSE 50% 25 GM / 50ML DISP.SYRIN. IV PRN (06:30)
--- NOTE | 2017-05-20 07:02 | EKG ---
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
--- NOTE | 2017-05-20 07:27 | RAD ---
Chest x-ray Indication: Chest pain radiating to right arm for one day Technique: Portable AP upright chest x-ray Comparison: Previous film from 10/07/2016 Findings: Heart is normal in size. Lungs are clear. No pneumothorax or pleural effusion. Mild scoliosis. Otherwise, visualized bony thorax within normal limits. Impression: No acute cardiopulmonary process.
[2017-05-20 07:30] VITALS: BP 108/67
--- NOTE | 2017-05-20 10:20 | PDOC2 ---
CONSULT Date of Consult Date of Consult DATE: 05/20/17 TIME: 10:14 Reason for Consult Reason for Consult: RENAL FAILURE Referring Physician Referring Physician: ROSANA Identification/Chief Complaint Chief Complaint MULTIPLE COMPLAINTS Problems: Source Source: Chart review, Patient History of Present Illness Reason for Visit: THIS IS A 56 YR OLD WITH COMPLAINTS OF WHOLE BODY ACHES, WEAKNESS, DYSURIA, FREQUENCY, SKIN LESIONS ETC. LABS SHOWED A CR OF 2.8. SHE DOES NOT KNOW ANY CKD HX. DRUG SCREEN POS FOR COCAINE AND MARIJUANA. HX NOTABLE FOR JOINT PAINS AND SHE HAS BEEN TAKING ABOUT 4-5 IBUPROFEN TABLETS DAILY. NO HX OF ANY KIDNEY OR BLADDER SURGERIES HEMATURIA OR STONE DZ NOTED. STATES SHE WAS DX WITH LUPUS IN 2003 Past Medical History Cardiovascular: HTN, Other Pulmonary: Asthma GI: No pertinent hx Heme/Onc: Other Hepatobiliary: No pertinent hx Psych: No pertinent hx Rheumatologic: Other Infectious disease: No pertinent hx Renal/: No pertinent hx Endocrine: Diabetes Past Surgical History Past Surgical History: Family History Family History: Coronary Artery Disease Social History <1 pack per day ALCOHOL: none Drugs: Cocaine, Marijuana Current Problem List Problem List Problems Medical Problems: (1) Chest pain Status: Acute (2) UTI (urinary tract infection) Status: Acute Current Medications Current Medications Current Medications Nitroglycerin (Nitrostat) 0.4 mg PRN Q5MIN PRN SL CP RATING > 1/10 Last administered on 05/19/17 19:41; Start 05/19/17 at 18:45; Stop 05/20/17 at 18:44 Morphine Sulfate 2 mg PRN Q15MIN PRN IV/SQ PAIN GREATER THAN 3/10; Start at 18:45; Stop 05/19/17 at 19:23; Status DC Sodium Chloride 1,000 ml @ 1,000 mls/hr 1X ONCE IV Last administered on 19:36; Start 05/19/17 at 19:00; Stop 05/19/17 at 20:07; Status DC Ondansetron HCl (Zofran) 4 mg 1X ONCE IV Last administered on 05/19/17 19:38 ; Start 05/19/17 at 19:00; Stop 05/19/17 at 19:01; Status DC Morphine Sulfate 2 mg PRN Q15MIN PRN IV/SQ PAIN GREATER THAN 3/10 Last administered on 05/19/17 19:39; Start 05/19/17 at 19:23; Stop 05/20/17 at 18:44 Sodium Chloride 1,000 ml @ 1,000 mls/hr 1X ONCE IV Last administered on 20:35; Start 05/19/17 at 20:15; Stop 05/19/17 at 21:14; Status DC Ceftriaxone Sodium 1 gm/ Sodium Chloride 50 ml @ 100 mls/hr 1X STAT IV ; Start 05/19/17 at 20:17; Stop 05/19/17 at 20:46; Status UNV Ceftriaxone Sodium 50 ml @ 100 mls/hr 1X ONCE IV Last administered on 20:35; Start 05/19/17 at 20:30; Stop 05/19/17 at 20:59; Status DC Ondansetron HCl (Zofran) 4 mg PRN Q8HRS PRN IV NAUSEA/VOMITING; Start 05/19/17 at 20:30; Stop 05/20/17 at 20:29 Morphine Sulfate 2 mg PRN Q2HR PRN IV PAIN; Start 05/19/17 at 20:30; Stop 05/20 at 20:29 Acetaminophen (Tylenol) 650 mg PRN Q6HRS PRN PO FEVER; Start 05/19/17 at 21:00 Ondansetron HCl (Zofran) 4 mg PRN Q6HRS PRN IV NAUSEA/VOMITING; Start 05/19/17 at 21:00 Morphine Sulfate 2 mg PRN Q2HR PRN IV MODERATE TO SEVERE PAIN Last administered on 05/20/17 04:42; Start 05/19/17 at 21:15 Tramadol HCl (Ultram) 50 mg PRN Q6HRS PRN PO PAIN; Start 05/19/17 at 21:00 Hydralazine HCl (Apresoline) 10 mg PRN Q4HRS PRN IVP ELEVATED BP, SEE COMMENTS ; Start 05/19/17 at 21:00 Docusate Sodium (Colace) 100 mg PRN DAILY PRN PO CONSTIPATION; Start 05/19/17 at 21:00 Ceftriaxone Sodium 1 gm/ Sodium Chloride 50 ml @ 100 mls/hr Q24H IV ; Start at 20:00 Prednisone (Prednisone) 60 mg 1X ONCE PO Last administered on 05/19/17 21:37 ; Start 05/19/17 at 21:00; Stop 05/19/17 at 21:01; Status DC Famotidine (Pepcid) 20 mg 1X ONCE PO Last administered on 05/19/17 21:36; Start 05/19/17 at 21:00; Stop 05/19/17 at 21:01; Status DC Heparin Sodium (Porcine) (Heparin Sq) 5,000 unit Q8HRS SQ Last administered on 05/20/17 05:57; Start 05/19/17 at 22:00 Sodium Chloride 1,000 ml @ 100 mls/hr CONT PRN IV SEE I/O RECORD Last administered on 05/20/17 08:49; Start 05/19/17 at 21:00 Dextrose (Dextrose 50%-Water Syringe) 12.5 gm PRN Q15MIN PRN IV SEE COMMENTS; Start 05/20/17 at 06:30 Active Scripts Active Clindamycin Hcl 150 Mg Capsule 3 Cap PO TID Clindamycin Hcl 300 Mg Capsule 450 Mg PO TID 14 Days Reported Vitamin D2 (Ergocalciferol (Vitamin D2)) 50,000 Unit Capsule 50,000 Units PO QM Allergies Allergies: Coded Allergies: Penicillins (Verified Allergy, Intermediate, 01/02/14) ROS General: YES: Fatigue, Malaise, Appetite PSYCHOLOGICAL ROS: YES: Anxiety Eyes: Yes Decreased vision HEENT: YES: Heacaches Respiratory: YES: Cough Gastrointestinal: Yes Constipation Genitourinary: YES Dysuria, YES Frequency Musculoskeletal: Yes Joint Pain, Yes Joint Stiffness, Yes Muscular Weakness Neurological: Yes Weakness Skin: Yes Dry Skin, Yes Skin Lesion Changes Physical Exam General: Alert, Oriented X3, Cooperative, No acute distress HEENT: Atraumatic, PERRLA, EOMI, Mucous membr. moist/pink Lungs: Clear to auscultation, Normal air movement Heart: Regular rate, Normal S1, Normal S2 Abdomen: Normal bowel sounds, Soft, No tenderness Extremities: No clubbing, No cyanosis, No edema, Normal pulses Neuro: Normal speech, Cranial nerves 3-12 NL Psych/Mental Status: Mental status NL, Mood NL MUSCULOSKELETAL: No deformity, Other (KNEE JOINT PAIN AND SMALL EFFUSION RIGHT KNEE) Vitals VITALS Vital Signs Date Time Temp Pulse Resp B/P (MAP) Pulse Ox O2 Delivery O2 Flow Rate FiO2 05/20/17 07:30 98.1 70 18 108/67 (81) 99 Room Air 98.1 Labs Labs Laboratory Tests Test 05/19/17 19:20 05/19/17 19:30 05/19/17 19:47 05/20/17 02:50 White Blood Count 2.2 x10^3/uL (4.0-11.0) 2.2 x10^3/uL (4.0-11.0) Red Blood Count 4.62 x10^6/uL (3.50-5.40) 4.14 x10^6/uL (3.50-5.40) Hemoglobin 13.4 g/dL (12.0-15.5) 11.8 g/dL (12.0-15.5) Hematocrit 40.7 % (36.0-47.0) 36.3 % (36.0-47.0) Mean Corpuscular Volume 88 fL (79-100) 88 fL (79-100) Mean Corpuscular Hemoglobin 29 pg (25-35) 29 pg (25-35) Mean Corpuscular Hemoglobin Concent 33 g/dL (31-37) 33 g/dL (31-37) Red Cell Distribution Width 14.7 % (11.5-14.5) 14.1 % (11.5-14.5) Platelet Count 175 x10^3/uL (140-400) 157 x10^3/uL (140-400) Neutrophils (%) (Auto) 44 % (31-73) 73 % (31-73) Lymphocytes (%) (Auto) 45 % (24-48) 18 % (24-48) Monocytes (%) (Auto) 8 % (0-9) 8 % (0-9) Eosinophils (%) (Auto) 2 % (0-3) 0 % (0-3) Basophils (%) (Auto) 1 % (0-3) 0 % (0-3) Neutrophils # (Auto) 1.0 x10^3uL (1.8-7.7) 1.6 x10^3uL (1.8-7.7) Lymphocytes # (Auto) 1.0 x10^3/uL (1.0-4.8) 0.4 x10^3/uL (1.0-4.8) Monocytes # (Auto) 0.2 x10^3/uL (0.0-1.1) 0.2 x10^3/uL (0.0-1.1) Eosinophils # (Auto) 0.0 x10^3/uL (0.0-0.7) 0.0 x10^3/uL (0.0-0.7) Basophils # (Auto) 0.0 x10^3/uL (0.0-0.2) 0.0 x10^3/uL (0.0-0.2) Erythrocyte Sedimentation Rate 43 (0-25) Prothrombin Time 14.5 SEC (11.7-14.0) Prothromb Time International Ratio 1.2 (0.8-1.1) Urine Collection Type Unknown Urine Color Disha Urine Clarity Turbid Urine pH 5.0 Urine Specific Stowell 1.020 Urine Protein 100 mg/dL (NEG-TRACE) Urine Glucose (UA) Negative mg/dL (NEG) Urine Ketones (Stick) Trace mg/dL (NEG) Urine Blood Large (NEG) Urine Nitrite Negative (NEG) Urine Bilirubin Moderate (NEG) Urine Urobilinogen Dipstick 1.0 mg/dL (0.2 mg/dL) Urine Leukocyte Esterase Moderate (NEG) Urine RBC 0 /HPF (0-2) Urine WBC 5-10 /HPF (0-4) Urine Squamous Epithelial Cells Mod /LPF Urine Bacteria Many /HPF (0-FEW) Urine Hyaline Casts Few /HPF Urine Mucus Mod /LPF Urine Opiates Screen Neg (NEG) Urine Methadone Screen Neg (NEG) Urine Barbiturates Neg (NEG) Urine Phencyclidine Screen Neg (NEG) Urine Amphetamine/Methamphetamine Neg (NEG) Urine Benzodiazepines Screen Neg (NEG) Urine Cocaine Screen Pos (NEG) Urine Cannabinoids Screen Pos (NEG) Urine Ethyl Alcohol Neg (NEG) Sodium Level 135 mmol/L (136-145) Potassium Level 3.8 mmol/L (3.5-5.1) Chloride Level 100 mmol/L (98-107) Carbon Dioxide Level 23 mmol/L (21-32) Anion Gap 12 (6-14) Blood Urea Nitrogen 42 mg/dL (7-20) Creatinine 2.8 mg/dL (0.6-1.0) Estimated GFR (Cockcroft-Gault) 21.2 Glucose Level 115 mg/dL (70-99) Calcium Level 8.7 mg/dL (8.5-10.1) Magnesium Level 2.2 mg/dL (1.8-2.4) Total Bilirubin 0.6 mg/dL (0.2-1.0) Direct Bilirubin 0.3 mg/dL (0.0-0.2) Aspartate Amino Transf (AST/SGOT) 40 U/L (15-37) Alanine Aminotransferase (ALT/SGPT) 58 U/L (14-59) Alkaline Phosphatase 91 U/L (46-116) Creatine Kinase 25 U/L (26-192) Creatine Kinase MB (Mass) < 0.5 ng/mL (0.0-3.6) Creatine Kinase MB Relative Index % (0-4) Troponin I Quantitative < 0.017 ng/mL (0.000-0.055) < 0.017 ng/mL (0.000-0.055) PF-Ktq-A-Type Natriuretic Peptide 178 pg/mL (0-124) Total Protein 8.2 g/dL (6.4-8.2) Albumin 3.0 g/dL (3.4-5.0) Lipase 73 U/L (73-393) Thyroid Stimulating Hormone (TSH) 1.089 uIU/mL (0.358-3.74) Test 05/20/17 04:00 05/20/17 08:40 Sodium Level 135 mmol/L (136-145) Potassium Level 4.4 mmol/L (3.5-5.1) Chloride Level 103 mmol/L (98-107) Carbon Dioxide Level 22 mmol/L (21-32) Anion Gap 10 (6-14) Blood Urea Nitrogen 35 mg/dL (7-20) Creatinine 1.9 mg/dL (0.6-1.0) Estimated GFR (Cockcroft-Gault) 33.2 BUN/Creatinine Ratio 18 (6-20) Glucose Level 176 mg/dL (70-99) Calcium Level 8.3 mg/dL (8.5-10.1) Total Bilirubin 0.4 mg/dL (0.2-1.0) Aspartate Amino Transf (AST/SGOT) 44 U/L (15-37) Alanine Aminotransferase (ALT/SGPT) 56 U/L (14-59) Alkaline Phosphatase 87 U/L (46-116) Total Protein 7.2 g/dL (6.4-8.2) Albumin 2.8 g/dL (3.4-5.0) Albumin/Globulin Ratio 0.6 (1.0-1.7) Troponin I Quantitative < 0.017 ng/mL (0.000-0.055) Laboratory Tests Test 05/19/17 19:20 05/19/17 19:30 05/19/17 19:47 05/20/17 02:50 White Blood Count 2.2 x10^3/uL (4.0-11.0) 2.2 x10^3/uL (4.0-11.0) Red Blood Count 4.62 x10^6/uL (3.50-5.40) 4.14 x10^6/uL (3.50-5.40) Hemoglobin 13.4 g/dL (12.0-15.5) 11.8 g/dL (12.0-15.5) Hematocrit 40.7 % (36.0-47.0) 36.3 % (36.0-47.0) Mean Corpuscular Volume 88 fL (79-100) 88 fL (79-100) Mean Corpuscular Hemoglobin 29 pg (25-35) 29 pg (25-35) Mean Corpuscular Hemoglobin Concent 33 g/dL (31-37) 33 g/dL (31-37) Red Cell Distribution Width 14.7 % (11.5-14.5) 14.1 % (11.5-14.5) Platelet Count 175 x10^3/uL (140-400) 157 x10^3/uL (140-400) Neutrophils (%) (Auto) 44 % (31-73) 73 % (31-73) Lymphocytes (%) (Auto) 45 % (24-48) 18 % (24-48) Monocytes (%) (Auto) 8 % (0-9) 8 % (0-9) Eosinophils (%) (Auto) 2 % (0-3) 0 % (0-3) Basophils (%) (Auto) 1 % (0-3) 0 % (0-3) Neutrophils # (Auto) 1.0 x10^3uL (1.8-7.7) 1.6 x10^3uL (1.8-7.7) Lymphocytes # (Auto) 1.0 x10^3/uL (1.0-4.8) 0.4 x10^3/uL (1.0-4.8) Monocytes # (Auto) 0.2 x10^3/uL (0.0-1.1) 0.2 x10^3/uL (0.0-1.1) Eosinophils # (Auto) 0.0 x10^3/uL (0.0-0.7) 0.0 x10^3/uL (0.0-0.7) Basophils # (Auto) 0.0 x10^3/uL (0.0-0.2) 0.0 x10^3/uL (0.0-0.2) Erythrocyte Sedimentation Rate 43 (0-25) Prothrombin Time 14.5 SEC (11.7-14.0) Prothromb Time International Ratio 1.2 (0.8-1.1) Urine Collection Type Unknown Urine Color Disha Urine Clarity Turbid Urine pH 5.0 Urine Specific Stowell 1.020 Urine Protein 100 mg/dL (NEG-TRACE) Urine Glucose (UA) Negative mg/dL (NEG) Urine Ketones (Stick) Trace mg/dL (NEG) Urine Blood Large (NEG) Urine Nitrite Negative (NEG) Urine Bilirubin Moderate (NEG) Urine Urobilinogen Dipstick 1.0 mg/dL (0.2 mg/dL) Urine Leukocyte Esterase Moderate (NEG) Urine RBC 0 /HPF (0-2) Urine WBC 5-10 /HPF (0-4) Urine Squamous Epithelial Cells Mod /LPF Urine Bacteria Many /HPF (0-FEW) Urine Hyaline Casts Few /HPF Urine Mucus Mod /LPF Urine Opiates Screen Neg (NEG) Urine Methadone Screen Neg (NEG) Urine Barbiturates Neg (NEG) Urine Phencyclidine Screen Neg (NEG) Urine Amphetamine/Methamphetamine Neg (NEG) Urine Benzodiazepines Screen Neg (NEG) Urine Cocaine Screen Pos (NEG) Urine Cannabinoids Screen Pos (NEG) Urine Ethyl Alcohol Neg (NEG) Sodium Level 135 mmol/L (136-145) Potassium Level 3.8 mmol/L (3.5-5.1) Chloride Level 100 mmol/L (98-107) Carbon Dioxide Level 23 mmol/L (21-32) Anion Gap 12 (6-14) Blood Urea Nitrogen 42 mg/dL (7-20) Creatinine 2.8 mg/dL (0.6-1.0) Estimated GFR (Cockcroft-Gault) 21.2 Glucose Level 115 mg/dL (70-99) Calcium Level 8.7 mg/dL (8.5-10.1) Magnesium Level 2.2 mg/dL (1.8-2.4) Total Bilirubin 0.6 mg/dL (0.2-1.0) Direct Bilirubin 0.3 mg/dL (0.0-0.2) Aspartate Amino Transf (AST/SGOT) 40 U/L (15-37) Alanine Aminotransferase (ALT/SGPT) 58 U/L (14-59) Alkaline Phosphatase 91 U/L (46-116) Creatine Kinase 25 U/L (26-192) Creatine Kinase MB (Mass) < 0.5 ng/mL (0.0-3.6) Creatine Kinase MB Relative Index % (0-4) Troponin I Quantitative < 0.017 ng/mL (0.000-0.055) < 0.017 ng/mL (0.000-0.055) NV-Yco-L-Type Natriuretic Peptide 178 pg/mL (0-124) Total Protein 8.2 g/dL (6.4-8.2) Albumin 3.0 g/dL (3.4-5.0) Lipase 73 U/L (73-393) Thyroid Stimulating Hormone (TSH) 1.089 uIU/mL (0.358-3.74) Test 05/20/17 04:00 05/20/17 08:40 Sodium Level 135 mmol/L (136-145) Potassium Level 4.4 mmol/L (3.5-5.1) Chloride Level 103 mmol/L (98-107) Carbon Dioxide Level 22 mmol/L (21-32) Anion Gap 10 (6-14) Blood Urea Nitrogen 35 mg/dL (7-20) Creatinine 1.9 mg/dL (0.6-1.0) Estimated GFR (Cockcroft-Gault) 33.2 BUN/Creatinine Ratio 18 (6-20) Glucose Level 176 mg/dL (70-99) Calcium Level 8.3 mg/dL (8.5-10.1) Total Bilirubin 0.4 mg/dL (0.2-1.0) Aspartate Amino Transf (AST/SGOT) 44 U/L (15-37) Alanine Aminotransferase (ALT/SGPT) 56 U/L (14-59) Alkaline Phosphatase 87 U/L (46-116) Total Protein 7.2 g/dL (6.4-8.2) Albumin 2.8 g/dL (3.4-5.0) Albumin/Globulin Ratio 0.6 (1.0-1.7) Troponin I Quantitative < 0.017 ng/mL (0.000-0.055) Assessment/Plan Assessment/Plan IMP MANASA POLYSUBSTANCE DRUG ABUSE DEHYDRATION NSAID ABUSE-A BOTTLE OF IBUPROFEN EVERY FEW WEEKS POSS INFLAMMATORY ARTHRITIS NEUTROPENIA PROB UTI ? SLE PLAN IVF'S 24 HR URINE STUDY RHEUM EVAL SEROLOGY PENDING HAVE ASKED PT TO AVOID NSAIDS MANASA MOST LIKELY DUE TO NSAIDS AND DEHYDRATION MATY TEJADA MD May 20, 2017 10:20
--- NOTE | 2017-05-20 11:01 | PDOC2 ---
CARDIAC CONSULT DATE OF CONSULT Date of Consult DATE: 05/20/17 TIME: 10:48 REASON FOR CONSULT Reason for Consult: CP REFERRING PHYSICIAN Referring Physician: lorri SOURCE Source: Chart review, Patient HISTORY OF PRESENT ILLNESS HISTORY OF PRESENT ILLNESS This is a 56 yo female admitted for complains of chest pain and abdominal pain. She did have episode of vomiting. Her CP occurs with positional changes and no symptoms of palpitations, SOA. Reports of fever 102 in temp yesterday otherwise no coughing, arm pain or jaw pain. Also complains of malaise and right knee swelling. She has hx of cocaine and marijuana use and tobacco use and continues to use marijuana but denies cocaine citing that it is possible she may have inhaled from someone using it in her place. although her CP is reproducible with palpation, she has not had any recurrence of her symptoms. She believes that she has flare up of her lupus. PAST MEDICAL HISTORY Past Medical History Cardiovascular: HTN Pulmonary: Asthma GI: No pertinent hx Heme/Onc: Other (leukopenia) Hepatobiliary: No pertinent hx Psych: Anxiety Rheumatologic: Other (SLE) Infectious disease: No pertinent hx ENT: No pertinent hx Renal/: No pertinent hx Endocrine: Diabetes? Dermatology: No pertinent hx PAST SURGICAL HISTORY Past Surgical History: FAMILY HISTORY Family History: Coronary Artery Disease (grandparents) SOCIAL HISTORY Social History Smoke: <1 pack per day ALCOHOL: none Drugs: Cocaine, Marijuana CURRENT MEDICATIONS CURRENT MEDICATIONS Current Medications Medications (Trade) Dose Ordered Sig/Quinton Route PRN Reason Start Time Stop Time Status Last Admin Dose Admin Nitroglycerin (Nitrostat) 0.4 mg PRN Q5MIN PRN SL CP RATING > 1/10 05/19/17 18:45 05/20/17 18:44 05/19/17 19:41 Sodium Chloride 1,000 ml @ 1,000 mls/hr 1X ONCE IV 05/19/17 19:00 05/19/17 20:07 DC 05/19/17 19:36 Ondansetron HCl (Zofran) 4 mg 1X ONCE IV 05/19/17 19:00 05/19/17 19:01 DC 05/19/17 19:38 Morphine Sulfate 2 mg PRN Q15MIN PRN IV/SQ PAIN GREATER THAN 3/10 05/19/17 19:23 05/20/17 18:44 05/19/17 19:39 Sodium Chloride 1,000 ml @ 1,000 mls/hr 1X ONCE IV 05/19/17 20:15 05/19/17 21:14 DC 05/19/17 20:35 Ceftriaxone Sodium 50 ml @ 100 mls/hr 1X ONCE IV 05/19/17 20:30 05/19/17 20:59 DC 05/19/17 20:35 Morphine Sulfate 2 mg PRN Q2HR PRN IV MODERATE TO SEVERE PAIN 05/19/17 21:15 05/20/17 04:42 Prednisone (Prednisone) 60 mg 1X ONCE PO 05/19/17 21:00 05/19/17 21:01 DC 05/19/17 21:37 Famotidine (Pepcid) 20 mg 1X ONCE PO 05/19/17 21:00 05/19/17 21:01 DC 05/19/17 21:36 Heparin Sodium (Porcine) (Heparin Sq) 5,000 unit Q8HRS SQ 05/19/17 22:00 05/20/17 05:57 Sodium Chloride 1,000 ml @ 100 mls/hr CONT PRN IV SEE I/O RECORD 05/19/17 21:00 05/20/17 08:49 ALLERGIES ALLERGIES: Coded Allergies: Penicillins (Verified Allergy, Intermediate, 01/02/14) ROS Review of System 14 point ROS evaluated with pertinent positives noted per HPI PHYSICAL EXAM General: Alert, Oriented X3, Cooperative, No acute distress HEENT: Atraumatic, Mucous membr. moist/pink Lungs: Clear to auscultation, Normal air movement Heart: Regular rate (SR), Normal S1, Normal S2, Other (2/6 systolic murmur to LLS border) Abdomen: Soft, No tenderness Extremities: No cyanosis, Other (RLE edema) Skin: No breakdown, Other (facial dark red macular rash) Neuro: Normal speech, Sensation intact Psych/Mental Status: Mood NL MUSCULOSKELETAL: Osteoarthritic changes both hands, Other (right knee effusion) VITALS VITALS Vital Signs Date Time Temp Pulse Resp B/P (MAP) Pulse Ox O2 Delivery O2 Flow Rate FiO2 05/20/17 07:30 98.1 70 18 108/67 (81) 99 Room Air 98.1 LABS Lab: Laboratory Tests Test 05/19/17 19:20 05/19/17 19:30 05/19/17 19:47 05/20/17 02:50 White Blood Count 2.2 x10^3/uL (4.0-11.0) 2.2 x10^3/uL (4.0-11.0) Red Blood Count 4.62 x10^6/uL (3.50-5.40) 4.14 x10^6/uL (3.50-5.40) Hemoglobin 13.4 g/dL (12.0-15.5) 11.8 g/dL (12.0-15.5) Hematocrit 40.7 % (36.0-47.0) 36.3 % (36.0-47.0) Mean Corpuscular Volume 88 fL (79-100) 88 fL (79-100) Mean Corpuscular Hemoglobin 29 pg (25-35) 29 pg (25-35) Mean Corpuscular Hemoglobin Concent 33 g/dL (31-37) 33 g/dL (31-37) Red Cell Distribution Width 14.7 % (11.5-14.5) 14.1 % (11.5-14.5) Platelet Count 175 x10^3/uL (140-400) 157 x10^3/uL (140-400) Neutrophils (%) (Auto) 44 % (31-73) 73 % (31-73) Lymphocytes (%) (Auto) 45 % (24-48) 18 % (24-48) Monocytes (%) (Auto) 8 % (0-9) 8 % (0-9) Eosinophils (%) (Auto) 2 % (0-3) 0 % (0-3) Basophils (%) (Auto) 1 % (0-3) 0 % (0-3) Neutrophils # (Auto) 1.0 x10^3uL (1.8-7.7) 1.6 x10^3uL (1.8-7.7) Lymphocytes # (Auto) 1.0 x10^3/uL (1.0-4.8) 0.4 x10^3/uL (1.0-4.8) Monocytes # (Auto) 0.2 x10^3/uL (0.0-1.1) 0.2 x10^3/uL (0.0-1.1) Eosinophils # (Auto) 0.0 x10^3/uL (0.0-0.7) 0.0 x10^3/uL (0.0-0.7) Basophils # (Auto) 0.0 x10^3/uL (0.0-0.2) 0.0 x10^3/uL (0.0-0.2) Erythrocyte Sedimentation Rate 43 (0-25) Prothrombin Time 14.5 SEC (11.7-14.0) Prothromb Time International Ratio 1.2 (0.8-1.1) Urine Collection Type Unknown Urine Color Disha Urine Clarity Turbid Urine pH 5.0 Urine Specific Logan 1.020 Urine Protein 100 mg/dL (NEG-TRACE) Urine Glucose (UA) Negative mg/dL (NEG) Urine Ketones (Stick) Trace mg/dL (NEG) Urine Blood Large (NEG) Urine Nitrite Negative (NEG) Urine Bilirubin Moderate (NEG) Urine Urobilinogen Dipstick 1.0 mg/dL (0.2 mg/dL) Urine Leukocyte Esterase Moderate (NEG) Urine RBC 0 /HPF (0-2) Urine WBC 5-10 /HPF (0-4) Urine Squamous Epithelial Cells Mod /LPF Urine Bacteria Many /HPF (0-FEW) Urine Hyaline Casts Few /HPF Urine Mucus Mod /LPF Urine Opiates Screen Neg (NEG) Urine Methadone Screen Neg (NEG) Urine Barbiturates Neg (NEG) Urine Phencyclidine Screen Neg (NEG) Urine Amphetamine/Methamphetamine Neg (NEG) Urine Benzodiazepines Screen Neg (NEG) Urine Cocaine Screen Pos (NEG) Urine Cannabinoids Screen Pos (NEG) Urine Ethyl Alcohol Neg (NEG) Sodium Level 135 mmol/L (136-145) Potassium Level 3.8 mmol/L (3.5-5.1) Chloride Level 100 mmol/L (98-107) Carbon Dioxide Level 23 mmol/L (21-32) Anion Gap 12 (6-14) Blood Urea Nitrogen 42 mg/dL (7-20) Creatinine 2.8 mg/dL (0.6-1.0) Estimated GFR (Cockcroft-Gault) 21.2 Glucose Level 115 mg/dL (70-99) Calcium Level 8.7 mg/dL (8.5-10.1) Magnesium Level 2.2 mg/dL (1.8-2.4) Total Bilirubin 0.6 mg/dL (0.2-1.0) Direct Bilirubin 0.3 mg/dL (0.0-0.2) Aspartate Amino Transf (AST/SGOT) 40 U/L (15-37) Alanine Aminotransferase (ALT/SGPT) 58 U/L (14-59) Alkaline Phosphatase 91 U/L (46-116) Creatine Kinase 25 U/L (26-192) Creatine Kinase MB (Mass) < 0.5 ng/mL (0.0-3.6) Creatine Kinase MB Relative Index % (0-4) Troponin I Quantitative < 0.017 ng/mL (0.000-0.055) < 0.017 ng/mL (0.000-0.055) JI-Dwa-Y-Type Natriuretic Peptide 178 pg/mL (0-124) Total Protein 8.2 g/dL (6.4-8.2) Albumin 3.0 g/dL (3.4-5.0) Lipase 73 U/L (73-393) Thyroid Stimulating Hormone (TSH) 1.089 uIU/mL (0.358-3.74) Test 05/20/17 04:00 05/20/17 08:40 Sodium Level 135 mmol/L (136-145) Potassium Level 4.4 mmol/L (3.5-5.1) Chloride Level 103 mmol/L (98-107) Carbon Dioxide Level 22 mmol/L (21-32) Anion Gap 10 (6-14) Blood Urea Nitrogen 35 mg/dL (7-20) Creatinine 1.9 mg/dL (0.6-1.0) Estimated GFR (Cockcroft-Gault) 33.2 BUN/Creatinine Ratio 18 (6-20) Glucose Level 176 mg/dL (70-99) Calcium Level 8.3 mg/dL (8.5-10.1) Total Bilirubin 0.4 mg/dL (0.2-1.0) Aspartate Amino Transf (AST/SGOT) 44 U/L (15-37) Alanine Aminotransferase (ALT/SGPT) 56 U/L (14-59) Alkaline Phosphatase 87 U/L (46-116) Total Protein 7.2 g/dL (6.4-8.2) Albumin 2.8 g/dL (3.4-5.0) Albumin/Globulin Ratio 0.6 (1.0-1.7) Troponin I Quantitative < 0.017 ng/mL (0.000-0.055) ECHOCARDIOGRAM ECHOCARDIOGRAM <Conclusion> The left ventricle is normal size. The left ventricular systolic function is normal and the ejection fraction is within normal range. The Ejection Fraction is 55-60%. There is borderline concentric left ventricular hypertrophy. There is no significant aortic valvular stenosis. Doppler and Color Flow revealed no significant aortic regurgitation. Doppler and Color Flow revealed no mitral valve regurgitation noted. Doppler and Color Flow revealed trace tricuspid regurgitation. The PA pressure was estimated at 34 mmHg. There is no evidence of significant pericardial effusion. DATE: 06/04/15 1641 ASSESSMENT/PLAN ASSESSMENT/PLAN 1. Atypical CP: Doubt ACS, reproducible. Troponin series normal. EKG SR with atrial enlargement, no significant changes by comparison. Likely MSK 2. Hx of HTN: no home coverage but controlled 3. SLE flare up?: facial rash myalgia, right knee effusion, elevated ESR, fever. Defer to PCP 4. Hx of Polysubstance abuse: remains to use cocaine (denies use) and marijuana (admits use), positive tox screen 5. Pulmonary HTN/Tobaccoism: likely COPD 6. MANASA on CKD: nephrology following Recommendations 1. TTE, lipid panel 2. Start on ECASA for primary prevention 3. Smoking cessation, encouraged abstinence from rec drugs. 4. Discussed with pt that may consider MPI as an outpt if pt stays sober from cocaine. Problems: TAMIR WHALEY APRN May 20, 2017 11:01
[2017-05-20 11:05] VITALS: BP 101/58
[2017-05-20 11:31] LABS: CHOLESTEROL/HDL RATIO 12.3
[2017-05-20 12:17] LABS: C3 COMPLEMENT 121 mg/dL (82-167); C4 COMPLEMENT 25 mg/dL (14-44)
--- NOTE | 2017-05-20 12:54 | PDOC ---
PROGRESS NOTES Chief Complaint Chief Complaint CC: Chest pain 1. Acute renal failure 2. SLE 3. DM 4. HTN 5. Asthma 6. CAD History of Present Illness History of Present Illness Pt came in w/chest pain and whole body pain that was most likely due to SLE flare. Troponin and EKG were negative for acute findings. Pt was found to be in ARF. Pt was found to have UTI on UA. Ceftriaxone and prednisone were started. Pt reports the pain level is decreasing. Vitals Vitals Vital Signs Date Time Temp Pulse Resp B/P (MAP) Pulse Ox O2 Delivery O2 Flow Rate FiO2 05/20/17 11:05 98.2 55 19 101/58 (72) 92 Room Air 98.2 Physical Exam General: Alert, Oriented X3, Cooperative, No acute distress Heart: Regular rate (SR), Normal S1, Normal S2, Other (2/6 systolic murmur to LLS border) Abdomen: Soft, No tenderness Extremities: No cyanosis, Other (RLE edema) Skin: No breakdown, Other (facial dark red macular rash) Labs LABS Laboratory Tests Test 05/19/17 19:20 05/19/17 19:30 05/19/17 19:47 05/20/17 02:50 White Blood Count 2.2 x10^3/uL (4.0-11.0) 2.2 x10^3/uL (4.0-11.0) Red Blood Count 4.62 x10^6/uL (3.50-5.40) 4.14 x10^6/uL (3.50-5.40) Hemoglobin 13.4 g/dL (12.0-15.5) 11.8 g/dL (12.0-15.5) Hematocrit 40.7 % (36.0-47.0) 36.3 % (36.0-47.0) Mean Corpuscular Volume 88 fL (79-100) 88 fL (79-100) Mean Corpuscular Hemoglobin 29 pg (25-35) 29 pg (25-35) Mean Corpuscular Hemoglobin Concent 33 g/dL (31-37) 33 g/dL (31-37) Red Cell Distribution Width 14.7 % (11.5-14.5) 14.1 % (11.5-14.5) Platelet Count 175 x10^3/uL (140-400) 157 x10^3/uL (140-400) Neutrophils (%) (Auto) 44 % (31-73) 73 % (31-73) Lymphocytes (%) (Auto) 45 % (24-48) 18 % (24-48) Monocytes (%) (Auto) 8 % (0-9) 8 % (0-9) Eosinophils (%) (Auto) 2 % (0-3) 0 % (0-3) Basophils (%) (Auto) 1 % (0-3) 0 % (0-3) Neutrophils # (Auto) 1.0 x10^3uL (1.8-7.7) 1.6 x10^3uL (1.8-7.7) Lymphocytes # (Auto) 1.0 x10^3/uL (1.0-4.8) 0.4 x10^3/uL (1.0-4.8) Monocytes # (Auto) 0.2 x10^3/uL (0.0-1.1) 0.2 x10^3/uL (0.0-1.1) Eosinophils # (Auto) 0.0 x10^3/uL (0.0-0.7) 0.0 x10^3/uL (0.0-0.7) Basophils # (Auto) 0.0 x10^3/uL (0.0-0.2) 0.0 x10^3/uL (0.0-0.2) Erythrocyte Sedimentation Rate 43 (0-25) Prothrombin Time 14.5 SEC (11.7-14.0) Prothromb Time International Ratio 1.2 (0.8-1.1) Urine Collection Type Unknown Urine Color Disha Urine Clarity Turbid Urine pH 5.0 Urine Specific Upper[place] 1.020 Urine Protein 100 mg/dL (NEG-TRACE) Urine Glucose (UA) Negative mg/dL (NEG) Urine Ketones (Stick) Trace mg/dL (NEG) Urine Blood Large (NEG) Urine Nitrite Negative (NEG) Urine Bilirubin Moderate (NEG) Urine Urobilinogen Dipstick 1.0 mg/dL (0.2 mg/dL) Urine Leukocyte Esterase Moderate (NEG) Urine RBC 0 /HPF (0-2) Urine WBC 5-10 /HPF (0-4) Urine Squamous Epithelial Cells Mod /LPF Urine Bacteria Many /HPF (0-FEW) Urine Hyaline Casts Few /HPF Urine Mucus Mod /LPF Urine Opiates Screen Neg (NEG) Urine Methadone Screen Neg (NEG) Urine Barbiturates Neg (NEG) Urine Phencyclidine Screen Neg (NEG) Urine Amphetamine/Methamphetamine Neg (NEG) Urine Benzodiazepines Screen Neg (NEG) Urine Cocaine Screen Pos (NEG) Urine Cannabinoids Screen Pos (NEG) Urine Ethyl Alcohol Neg (NEG) Sodium Level 135 mmol/L (136-145) Potassium Level 3.8 mmol/L (3.5-5.1) Chloride Level 100 mmol/L (98-107) Carbon Dioxide Level 23 mmol/L (21-32) Anion Gap 12 (6-14) Blood Urea Nitrogen 42 mg/dL (7-20) Creatinine 2.8 mg/dL (0.6-1.0) Estimated GFR (Cockcroft-Gault) 21.2 Glucose Level 115 mg/dL (70-99) Calcium Level 8.7 mg/dL (8.5-10.1) Magnesium Level 2.2 mg/dL (1.8-2.4) Total Bilirubin 0.6 mg/dL (0.2-1.0) Direct Bilirubin 0.3 mg/dL (0.0-0.2) Aspartate Amino Transf (AST/SGOT) 40 U/L (15-37) Alanine Aminotransferase (ALT/SGPT) 58 U/L (14-59) Alkaline Phosphatase 91 U/L (46-116) Creatine Kinase 25 U/L (26-192) Creatine Kinase MB (Mass) < 0.5 ng/mL (0.0-3.6) Creatine Kinase MB Relative Index % (0-4) Troponin I Quantitative < 0.017 ng/mL (0.000-0.055) < 0.017 ng/mL (0.000-0.055) UE-Kix-I-Type Natriuretic Peptide 178 pg/mL (0-124) Total Protein 8.2 g/dL (6.4-8.2) Albumin 3.0 g/dL (3.4-5.0) Lipase 73 U/L (73-393) Thyroid Stimulating Hormone (TSH) 1.089 uIU/mL (0.358-3.74) Complement C3 121 mg/dL (82-167) Complement C4 25 mg/dL (14-44) Test 05/20/17 04:00 05/20/17 08:40 05/20/17 12:06 Sodium Level 135 mmol/L (136-145) Potassium Level 4.4 mmol/L (3.5-5.1) Chloride Level 103 mmol/L (98-107) Carbon Dioxide Level 22 mmol/L (21-32) Anion Gap 10 (6-14) Blood Urea Nitrogen 35 mg/dL (7-20) Creatinine 1.9 mg/dL (0.6-1.0) Estimated GFR (Cockcroft-Gault) 33.2 BUN/Creatinine Ratio 18 (6-20) Glucose Level 176 mg/dL (70-99) Calcium Level 8.3 mg/dL (8.5-10.1) Total Bilirubin 0.4 mg/dL (0.2-1.0) Aspartate Amino Transf (AST/SGOT) 44 U/L (15-37) Alanine Aminotransferase (ALT/SGPT) 56 U/L (14-59) Alkaline Phosphatase 87 U/L (46-116) Total Protein 7.2 g/dL (6.4-8.2) Albumin 2.8 g/dL (3.4-5.0) Albumin/Globulin Ratio 0.6 (1.0-1.7) Triglycerides Level 162 mg/dL (0-150) Cholesterol Level 111 mg/dL (0-200) LDL Cholesterol, Calculated 70 mg/dL (0-100) VLDL Cholesterol, Calculated 32 mg/dL (0-40) Non-HDL Cholesterol Calculated 102 mg/dL (0-129) HDL Cholesterol 9 mg/dL (40-60) Cholesterol/HDL Ratio 12.3 Troponin I Quantitative < 0.017 ng/mL (0.000-0.055) Glucose (Fingerstick) 128 mg/dL (70-99) Review of Systems Review of Systems Complains of systemic pain Chest pain resolved Assessment and Plan Assessmemt and Plan Problems Medical Problems: (1) Chest pain Status: Acute (2) UTI (urinary tract infection) Status: Acute CC: Chest pain: negative troponin, sinus rhythm EKG, pain has now resolved. 1. Acute renal failure: Cr was last 1.9, f/u daily labs, renal was consulted ( appreciate the assistance) 2. UTI: Continue IVF, continue ceftriaxone 3. SLE: Hx of occasional flares, does not take any [employer] MA[employer] meds, given prednisone, rheum was consulted (appreciate the assistance) 4. Albumin-protein dissociation: Likely due to infectious process, continue to monitor, consider SPEP if no improvement 5. Anemia: Mild right now, continue to follow. 6. DM: Continue to f/u on glucose levels 7. HTN: Continue to follow 8. Asthma: Continue to follow 9. CAD: Continue to follow Problems: Comment Review of Relevant I have reviewed the following items kelli (where applicable) has been applied. Labs Laboratory Tests Test 05/19/17 19:20 05/19/17 19:30 05/19/17 19:47 05/20/17 02:50 White Blood Count 2.2 x10^3/uL (4.0-11.0) 2.2 x10^3/uL (4.0-11.0) Red Blood Count 4.62 x10^6/uL (3.50-5.40) 4.14 x10^6/uL (3.50-5.40) Hemoglobin 13.4 g/dL (12.0-15.5) 11.8 g/dL (12.0-15.5) Hematocrit 40.7 % (36.0-47.0) 36.3 % (36.0-47.0) Mean Corpuscular Volume 88 fL (79-100) 88 fL (79-100) Mean Corpuscular Hemoglobin 29 pg (25-35) 29 pg (25-35) Mean Corpuscular Hemoglobin Concent 33 g/dL (31-37) 33 g/dL (31-37) Red Cell Distribution Width 14.7 % (11.5-14.5) 14.1 % (11.5-14.5) Platelet Count 175 x10^3/uL (140-400) 157 x10^3/uL (140-400) Neutrophils (%) (Auto) 44 % (31-73) 73 % (31-73) Lymphocytes (%) (Auto) 45 % (24-48) 18 % (24-48) Monocytes (%) (Auto) 8 % (0-9) 8 % (0-9) Eosinophils (%) (Auto) 2 % (0-3) 0 % (0-3) Basophils (%) (Auto) 1 % (0-3) 0 % (0-3) Neutrophils # (Auto) 1.0 x10^3uL (1.8-7.7) 1.6 x10^3uL (1.8-7.7) Lymphocytes # (Auto) 1.0 x10^3/uL (1.0-4.8) 0.4 x10^3/uL (1.0-4.8) Monocytes # (Auto) 0.2 x10^3/uL (0.0-1.1) 0.2 x10^3/uL (0.0-1.1) Eosinophils # (Auto) 0.0 x10^3/uL (0.0-0.7) 0.0 x10^3/uL (0.0-0.7) Basophils # (Auto) 0.0 x10^3/uL (0.0-0.2) 0.0 x10^3/uL (0.0-0.2) Erythrocyte Sedimentation Rate 43 (0-25) Prothrombin Time 14.5 SEC (11.7-14.0) Prothromb Time International Ratio 1.2 (0.8-1.1) Urine Collection Type Unknown Urine Color Disha Urine Clarity Turbid Urine pH 5.0 Urine Specific Upper[place] 1.020 Urine Protein 100 mg/dL (NEG-TRACE) Urine Glucose (UA) Negative mg/dL (NEG) Urine Ketones (Stick) Trace mg/dL (NEG) Urine Blood Large (NEG) Urine Nitrite Negative (NEG) Urine Bilirubin Moderate (NEG) Urine Urobilinogen Dipstick 1.0 mg/dL (0.2 mg/dL) Urine Leukocyte Esterase Moderate (NEG) Urine RBC 0 /HPF (0-2) Urine WBC 5-10 /HPF (0-4) Urine Squamous Epithelial Cells Mod /LPF Urine Bacteria Many /HPF (0-FEW) Urine Hyaline Casts Few /HPF Urine Mucus Mod /LPF Urine Opiates Screen Neg (NEG) Urine Methadone Screen Neg (NEG) Urine Barbiturates Neg (NEG) Urine Phencyclidine Screen Neg (NEG) Urine Amphetamine/Methamphetamine Neg (NEG) Urine Benzodiazepines Screen Neg (NEG) Urine Cocaine Screen Pos (NEG) Urine Cannabinoids Screen Pos (NEG) Urine Ethyl Alcohol Neg (NEG) Sodium Level 135 mmol/L (136-145) Potassium Level 3.8 mmol/L (3.5-5.1) Chloride Level 100 mmol/L (98-107) Carbon Dioxide Level 23 mmol/L (21-32) Anion Gap 12 (6-14) Blood Urea Nitrogen 42 mg/dL (7-20) Creatinine 2.8 mg/dL (0.6-1.0) Estimated GFR (Cockcroft-Gault) 21.2 Glucose Level 115 mg/dL (70-99) Calcium Level 8.7 mg/dL (8.5-10.1) Magnesium Level 2.2 mg/dL (1.8-2.4) Total Bilirubin 0.6 mg/dL (0.2-1.0) Direct Bilirubin 0.3 mg/dL (0.0-0.2) Aspartate Amino Transf (AST/SGOT) 40 U/L (15-37) Alanine Aminotransferase (ALT/SGPT) 58 U/L (14-59) Alkaline Phosphatase 91 U/L (46-116) Creatine Kinase 25 U/L (26-192) Creatine Kinase MB (Mass) < 0.5 ng/mL (0.0-3.6) Creatine Kinase MB Relative Index % (0-4) Troponin I Quantitative < 0.017 ng/mL (0.000-0.055) < 0.017 ng/mL (0.000-0.055) EP-Oyf-A-Type Natriuretic Peptide 178 pg/mL (0-124) Total Protein 8.2 g/dL (6.4-8.2) Albumin 3.0 g/dL (3.4-5.0) Lipase 73 U/L (73-393) Thyroid Stimulating Hormone (TSH) 1.089 uIU/mL (0.358-3.74) Complement C3 121 mg/dL (82-167) Complement C4 25 mg/dL (14-44) Test 05/20/17 04:00 05/20/17 08:40 05/20/17 12:06 Sodium Level 135 mmol/L (136-145) Potassium Level 4.4 mmol/L (3.5-5.1) Chloride Level 103 mmol/L (98-107) Carbon Dioxide Level 22 mmol/L (21-32) Anion Gap 10 (6-14) Blood Urea Nitrogen 35 mg/dL (7-20) Creatinine 1.9 mg/dL (0.6-1.0) Estimated GFR (Cockcroft-Gault) 33.2 BUN/Creatinine Ratio 18 (6-20) Glucose Level 176 mg/dL (70-99) Calcium Level 8.3 mg/dL (8.5-10.1) Total Bilirubin 0.4 mg/dL (0.2-1.0) Aspartate Amino Transf (AST/SGOT) 44 U/L (15-37) Alanine Aminotransferase (ALT/SGPT) 56 U/L (14-59) Alkaline Phosphatase 87 U/L (46-116) Total Protein 7.2 g/dL (6.4-8.2) Albumin 2.8 g/dL (3.4-5.0) Albumin/Globulin Ratio 0.6 (1.0-1.7) Triglycerides Level 162 mg/dL (0-150) Cholesterol Level 111 mg/dL (0-200) LDL Cholesterol, Calculated 70 mg/dL (0-100) VLDL Cholesterol, Calculated 32 mg/dL (0-40) Non-HDL Cholesterol Calculated 102 mg/dL (0-129) HDL Cholesterol 9 mg/dL (40-60) Cholesterol/HDL Ratio 12.3 Troponin I Quantitative < 0.017 ng/mL (0.000-0.055) Glucose (Fingerstick) 128 mg/dL (70-99) Laboratory Tests Test 05/19/17 19:20 05/19/17 19:30 05/19/17 19:47 05/20/17 02:50 White Blood Count 2.2 x10^3/uL (4.0-11.0) 2.2 x10^3/uL (4.0-11.0) Red Blood Count 4.62 x10^6/uL (3.50-5.40) 4.14 x10^6/uL (3.50-5.40) Hemoglobin 13.4 g/dL (12.0-15.5) 11.8 g/dL (12.0-15.5) Hematocrit 40.7 % (36.0-47.0) 36.3 % (36.0-47.0) Mean Corpuscular Volume 88 fL (79-100) 88 fL (79-100) Mean Corpuscular Hemoglobin 29 pg (25-35) 29 pg (25-35) Mean Corpuscular Hemoglobin Concent 33 g/dL (31-37) 33 g/dL (31-37) Red Cell Distribution Width 14.7 % (11.5-14.5) 14.1 % (11.5-14.5) Platelet Count 175 x10^3/uL (140-400) 157 x10^3/uL (140-400) Neutrophils (%) (Auto) 44 % (31-73) 73 % (31-73) Lymphocytes (%) (Auto) 45 % (24-48) 18 % (24-48) Monocytes (%) (Auto) 8 % (0-9) 8 % (0-9) Eosinophils (%) (Auto) 2 % (0-3) 0 % (0-3) Basophils (%) (Auto) 1 % (0-3) 0 % (0-3) Neutrophils # (Auto) 1.0 x10^3uL (1.8-7.7) 1.6 x10^3uL (1.8-7.7) Lymphocytes # (Auto) 1.0 x10^3/uL (1.0-4.8) 0.4 x10^3/uL (1.0-4.8) Monocytes # (Auto) 0.2 x10^3/uL (0.0-1.1) 0.2 x10^3/uL (0.0-1.1) Eosinophils # (Auto) 0.0 x10^3/uL (0.0-0.7) 0.0 x10^3/uL (0.0-0.7) Basophils # (Auto) 0.0 x10^3/uL (0.0-0.2) 0.0 x10^3/uL (0.0-0.2) Erythrocyte Sedimentation Rate 43 (0-25) Prothrombin Time 14.5 SEC (11.7-14.0) Prothromb Time International Ratio 1.2 (0.8-1.1) Urine Collection Type Unknown Urine Color Disha Urine Clarity Turbid Urine pH 5.0 Urine Specific Upper[place] 1.020 Urine Protein 100 mg/dL (NEG-TRACE) Urine Glucose (UA) Negative mg/dL (NEG) Urine Ketones (Stick) Trace mg/dL (NEG) Urine Blood Large (NEG) Urine Nitrite Negative (NEG) Urine Bilirubin Moderate (NEG) Urine Urobilinogen Dipstick 1.0 mg/dL (0.2 mg/dL) Urine Leukocyte Esterase Moderate (NEG) Urine RBC 0 /HPF (0-2) Urine WBC 5-10 /HPF (0-4) Urine Squamous Epithelial Cells Mod /LPF Urine Bacteria Many /HPF (0-FEW) Urine Hyaline Casts Few /HPF Urine Mucus Mod /LPF Urine Opiates Screen Neg (NEG) Urine Methadone Screen Neg (NEG) Urine Barbiturates Neg (NEG) Urine Phencyclidine Screen Neg (NEG) Urine Amphetamine/Methamphetamine Neg (NEG) Urine Benzodiazepines Screen Neg (NEG) Urine Cocaine Screen Pos (NEG) Urine Cannabinoids Screen Pos (NEG) Urine Ethyl Alcohol Neg (NEG) Sodium Level 135 mmol/L (136-145) Potassium Level 3.8 mmol/L (3.5-5.1) Chloride Level 100 mmol/L (98-107) Carbon Dioxide Level 23 mmol/L (21-32) Anion Gap 12 (6-14) Blood Urea Nitrogen 42 mg/dL (7-20) Creatinine 2.8 mg/dL (0.6-1.0) Estimated GFR (Cockcroft-Gault) 21.2 Glucose Level 115 mg/dL (70-99) Calcium Level 8.7 mg/dL (8.5-10.1) Magnesium Level 2.2 mg/dL (1.8-2.4) Total Bilirubin 0.6 mg/dL (0.2-1.0) Direct Bilirubin 0.3 mg/dL (0.0-0.2) Aspartate Amino Transf (AST/SGOT) 40 U/L (15-37) Alanine Aminotransferase (ALT/SGPT) 58 U/L (14-59) Alkaline Phosphatase 91 U/L (46-116) Creatine Kinase 25 U/L (26-192) Creatine Kinase MB (Mass) < 0.5 ng/mL (0.0-3.6) Creatine Kinase MB Relative Index % (0-4) Troponin I Quantitative < 0.017 ng/mL (0.000-0.055) < 0.017 ng/mL (0.000-0.055) BS-Hwk-X-Type Natriuretic Peptide 178 pg/mL (0-124) Total Protein 8.2 g/dL (6.4-8.2) Albumin 3.0 g/dL (3.4-5.0) Lipase 73 U/L (73-393) Thyroid Stimulating Hormone (TSH) 1.089 uIU/mL (0.358-3.74) Complement C3 121 mg/dL (82-167) Complement C4 25 mg/dL (14-44) Test 05/20/17 04:00 05/20/17 08:40 05/20/17 12:06 Sodium Level 135 mmol/L (136-145) Potassium Level 4.4 mmol/L (3.5-5.1) Chloride Level 103 mmol/L (98-107) Carbon Dioxide Level 22 mmol/L (21-32) Anion Gap 10 (6-14) Blood Urea Nitrogen 35 mg/dL (7-20) Creatinine 1.9 mg/dL (0.6-1.0) Estimated GFR (Cockcroft-Gault) 33.2 BUN/Creatinine Ratio 18 (6-20) Glucose Level 176 mg/dL (70-99) Calcium Level 8.3 mg/dL (8.5-10.1) Total Bilirubin 0.4 mg/dL (0.2-1.0) Aspartate Amino Transf (AST/SGOT) 44 U/L (15-37) Alanine Aminotransferase (ALT/SGPT) 56 U/L (14-59) Alkaline Phosphatase 87 U/L (46-116) Total Protein 7.2 g/dL (6.4-8.2) Albumin 2.8 g/dL (3.4-5.0) Albumin/Globulin Ratio 0.6 (1.0-1.7) Triglycerides Level 162 mg/dL (0-150) Cholesterol Level 111 mg/dL (0-200) LDL Cholesterol, Calculated 70 mg/dL (0-100) VLDL Cholesterol, Calculated 32 mg/dL (0-40) Non-HDL Cholesterol Calculated 102 mg/dL (0-129) HDL Cholesterol 9 mg/dL (40-60) Cholesterol/HDL Ratio 12.3 Troponin I Quantitative < 0.017 ng/mL (0.000-0.055) Glucose (Fingerstick) 128 mg/dL (70-99) Medications Current Medications Nitroglycerin (Nitrostat) 0.4 mg PRN Q5MIN PRN SL CP RATING > 10 Last administered on 05/19/17 19:41; Start 05/19/17 at 18:45; Stop 05/20/17 at 18:44 Morphine Sulfate 2 mg PRN Q15MIN PRN IV/SQ PAIN GREATER THAN 3/10; Start at 18:45; Stop 05/19/17 at 19:23; Status DC Sodium Chloride 1,000 ml @ 1,000 mls/hr 1X ONCE IV Last administered on 19:36; Start 05/19/17 at 19:00; Stop 05/19/17 at 20:07; Status DC Ondansetron HCl (Zofran) 4 mg 1X ONCE IV Last administered on 05/19/17 19:38 ; Start 05/19/17 at 19:00; Stop 05/19/17 at 19:01; Status DC Morphine Sulfate 2 mg PRN Q15MIN PRN IV/SQ PAIN GREATER THAN 3/10 Last administered on 05/19/17 19:39; Start 05/19/17 at 19:23; Stop 05/20/17 at 18:44 Sodium Chloride 1,000 ml @ 1,000 mls/hr 1X ONCE IV Last administered on 20:35; Start 05/19/17 at 20:15; Stop 05/19/17 at 21:14; Status DC Ceftriaxone Sodium 1 gm/ Sodium Chloride 50 ml @ 100 mls/hr 1X STAT IV ; Start 05/19/17 at 20:17; Stop 05/19/17 at 20:46; Status UNV Ceftriaxone Sodium 50 ml @ 100 mls/hr 1X ONCE IV Last administered on 20:35; Start 05/19/17 at 20:30; Stop 05/19/17 at 20:59; Status DC Ondansetron HCl (Zofran) 4 mg PRN Q8HRS PRN IV NAUSEA/VOMITING; Start 05/19/17 at 20:30; Stop 05/20/17 at 20:29 Morphine Sulfate 2 mg PRN Q2HR PRN IV PAIN; Start 05/19/17 at 20:30; Stop 05/20 at 20:29 Acetaminophen (Tylenol) 650 mg PRN Q6HRS PRN PO FEVER; Start 05/19/17 at 21:00 Ondansetron HCl (Zofran) 4 mg PRN Q6HRS PRN IV NAUSEA/VOMITING; Start 05/19/17 at 21:00 Morphine Sulfate 2 mg PRN Q2HR PRN IV MODERATE TO SEVERE PAIN Last administered on 05/20/17 04:42; Start 05/19/17 at 21:15 Tramadol HCl (Ultram) 50 mg PRN Q6HRS PRN PO PAIN; Start 05/19/17 at 21:00 Hydralazine HCl (Apresoline) 10 mg PRN Q4HRS PRN IVP ELEVATED BP, SEE COMMENTS ; Start 05/19/17 at 21:00 Docusate Sodium (Colace) 100 mg PRN DAILY PRN PO CONSTIPATION; Start 05/19/17 at 21:00 Ceftriaxone Sodium 1 gm/ Sodium Chloride 50 ml @ 100 mls/hr Q24H IV ; Start at 20:00 Prednisone (Prednisone) 60 mg 1X ONCE PO Last administered on 05/19/17 21:37 ; Start 05/19/17 at 21:00; Stop 05/19/17 at 21:01; Status DC Famotidine (Pepcid) 20 mg 1X ONCE PO Last administered on 05/19/17 21:36; Start 05/19/17 at 21:00; Stop 05/19/17 at 21:01; Status DC Heparin Sodium (Porcine) (Heparin Sq) 5,000 unit Q8HRS SQ Last administered on 05/20/17 05:57; Start 05/19/17 at 22:00 Sodium Chloride 1,000 ml @ 100 mls/hr CONT PRN IV SEE I/O RECORD Last administered on 05/20/17 08:49; Start 05/19/17 at 21:00 Dextrose (Dextrose 50%-Water Syringe) 12.5 gm PRN Q15MIN PRN IV SEE COMMENTS; Start 05/20/17 at 06:30 Aspirin (Ecotrin) 81 mg [id number] PO ; Start 05/20/17 at 12:00 Active Scripts Active Clindamycin Hcl 150 Mg Capsule 3 Cap PO TID Clindamycin Hcl 300 Mg Capsule 450 Mg PO TID 14 Days Reported Vitamin D2 (Ergocalciferol (Vitamin D2)) 50,000 Unit Capsule 50,000 Units PO QM Vitals/I & O Vital Sign - Last 24 Hours 8/05/19/17 05/19/17 05/19/17 18:41 19:39 19:41 19:52 Temp 98.0 98.0 Pulse 106 103 98 Resp 20 18 20 B/P (MAP) 103/70 (81) 103/70 104/55 (71) Pulse Ox 100 95 98 O2 Delivery Room Air Room Air Room Air 05/19/17 05/19/17 05/19/17 05/19/17 20:14 20:44 21:39 22:23 Pulse 88 90 95 96 Resp 20 18 22 24 B/P (MAP) 97/59 (72) 107/60 (76) 107/58 (74) 98/57 (71) Pulse Ox 94 96 97 98 O2 Delivery Room Air Room Air Room Air 05/19/17 05/19/17 05/19/17 05/20/17 23:07 23:38 23:45 00:40 Temp 99.1 98.8 99.1 98.8 Pulse 84 82 Resp 22 20 20 B/P (MAP) 106/60 (75) 107/62 (77) Pulse Ox 99 98 O2 Delivery Room Air Room Air Room Air 05/20/17 05/20/17 05/20/17 05/20/17 03:16 04:42 07:30 11:05 Temp 97.6 98.1 98.2 97.6 98.1 98.2 Pulse 82 70 55 Resp 20 18 19 B/P (MAP) 118/75 (89) 108/67 (81) 101/58 (72) Pulse Ox 98 98 99 92 O2 Delivery Room Air Room Air Room Air Room Air Intake and Output 05/19/17 05/19/17 05/20/17 15:00 23:00 07:00 Intake Total 1050 ml Output Total 300 ml Balance 1050 ml -300 ml SISI REYES III DO May 20, 2017 12:54
[2017-05-20] MEDS: ASPIRIN ENTERIC COATED 81 MG TABLET.DR. PO SCH (12:56)
[2017-05-20 15:05] VITALS: BP 128/84
--- NOTE | 2017-05-20 16:06 | CARD ---
APPROVED REPORT EXAM: Two-dimensional and M-mode echocardiogram with Doppler and color Doppler. Other Information Quality : GoodHR: 69bpm Rhythm : NSR INDICATION Chest Pain 2D DIMENSIONS RVDd3.3 (2.9-3.5cm)Left Atrium(2D)3.4 (1.6-4.0cm) IVSd1.0 (0.7-1.1cm)Aortic Root(2D)3.0 (2.0-3.7cm) LVDd4.4 (3.9-5.9cm)LVOT Diameter2.2 (1.8-2.4cm) PWd1.0 (0.7-1.1cm)LVDs2.6 (2.5-4.0cm) FS (%) 39.9 %SV62.2 ml LVEF(%)70.8 (>50%) Aortic Valve AoV Peak Dae.121.7cm/sAoV VTI27.2cm AO Peak GR.5.9mmHgLVOT Peak Dae.116.6cm/s AO Mean GR.3mmHgAVA (VMAX)3.75cm2 Mitral Valve MV E Gafzteon867.7cm/sMV E Peak Gr.5mmHg MV DECEL [id number] A Sxzudmmw51.0cm/s MV E Mean Gr.2mmHgE/A Ratio1.9 MV A [id number] Pulmonary Valve PV Peak Kqralwhe004.3cm/s Tricuspid Valve TR P. Dppbkspi052wr/sTR Peak Gr.29mmHg Pulmonary Vein S1 Vuopowkc96.0cm/sD2 Zehfirzy84.7cm/s PVa [id number] LEFT VENTRICLE The left ventricle is normal size. There is normal left ventricular wall thickness. The left ventricu lar systolic function is normal and the ejection fraction is within normal range. The Ejection Fracti on is 65-70%. There is normal LV segmental wall motion. The left ventricular diastolic function and f illing is normal for age. RIGHT VENTRICLE The right ventricle is normal size. There is normal right ventricular wall thickness. The right ventr icular systolic function is normal. ATRIA The left atrium size is normal. The right atrium size is normal. The interatrial septum is intact wit h no evidence for an atrial septal defect or patent foramen ovale as noted on 2-D or Doppler imaging. AORTIC VALVE The aortic valve is mildly thickened. The aortic valve is trileaflet. Doppler and Color Flow revealed no significant aortic regurgitation. There is no significant aortic valvular stenosis. MITRAL VALVE The mitral valve is normal in structure and function. There is no evidence of mitral valve prolapse. There is no mitral valve stenosis. Doppler and Color Flow revealed no mitral valve regurgitation note d. TRICUSPID VALVE Doppler and Color Flow revealed trace tricuspid regurgitation. The pulmonary artery systolic pressure is estimated at 32 mmHg. There is mild pulmonary hypertension. PULMONIC VALVE The pulmonary valve is not well visualized but appears to open adequately. Doppler and Color Flow rev ealed trace pulmonic valvular regurgitation. There is no pulmonic valvular stenosis by spectral Doppl er. GREAT VESSELS The aortic root is normal in size. The ascending aorta is normal in size. The pulmonary artery is nor mal. The IVC is normal in size and collapses >50% with inspiration. PERICARDIAL EFFUSION There is no evidence of significant pericardial effusion. Critical Notification Critical Value: No <Conclusion> The left ventricular systolic function is normal and the ejection fraction is within normal range. Th e Ejection Fraction is 65-70%.
[2017-05-20] MEDS: traMADol 50 MG TABLET PO PRN ×2 (16:56→23:27)
[2017-05-20 19:00] VITALS: BP 115/65
[2017-05-20 22:51] VITALS: BP 134/84
[2017-05-21] MEDS: MORPHINE SULFATE 4 MG/ML DISP.SYRIN. IV PRN (03:20)
[2017-05-21] MEDS: HEPARIN PF for SUB-Q USE 5,000 UNIT/0.5 ML VIAL. SQ SCH (05:43)
[2017-05-21] MEDS: traMADol 50 MG TABLET PO PRN (05:44)
[2017-05-21 06:14] LABS: BASO % 0 % (0-3); EOS % 1 % (0-3); HEMOGLOBIN 11.7 g/dL (12.0-15.5); LYMPH % 29 % (24-48); MEAN CORPUSCULAR HEMOGLOBIN 29 pg (25-35); MEAN CORPUSCULAR HGB CONC 33 g/dL (31-37); MEAN CORPUSCULAR VOLUME 88 fL (79-100); MONO % 12 % (0-9); NEUT % 57 % (31-73); PLATELET COUNT 191 x10^3/uL (140-400); RED BLOOD COUNT 4.09 x10^6/uL (3.50-5.40); RED CELL DISTRIBUTION WIDTH 14.1 % (11.5-14.5); WHITE BLOOD COUNT 3.4 x10^3/uL (4.0-11.0)
[2017-05-21 06:28] LABS: CALCIUM 8.5 mg/dL (8.5-10.1); CREATININE 1.2 mg/dL (0.6-1.0); GFR 56.4; POTASSIUM 4.1 mmol/L (3.5-5.1)
[2017-05-21 07:00] VITALS: BP 99/59
[2017-05-21] MEDS: ASPIRIN ENTERIC COATED 81 MG TABLET.DR. PO SCH (09:06)
--- NOTE | 2017-05-21 11:45 | PDOC ---
Renal-Progress Notes Subjective Notes Notes NONE History of Present Illness Hx of present illness NO CHANGE Vitals Vitals Vital Signs Date Time Temp Pulse Resp B/P (MAP) Pulse Ox O2 Delivery O2 Flow Rate FiO2 05/21/17 07:45 Room Air 05/21/17 07:00 98.8 90 22 99/59 (72) 93 98.8 Weight Weight [ ] I.O. Intake and Output Intake and Output 05/21/17 07:00 Intake Total 1650 ml Output Total 500 ml Balance 1150 ml Intake Oral 1200 ml IV Total 450 ml Output Urine Total 500 ml # Voids 6 Labs Labs Laboratory Tests Test 05/20/17 12:06 05/20/17 17:24 05/20/17 20:51 05/21/17 05:36 Glucose (Fingerstick) 128 mg/dL (70-99) 96 mg/dL (70-99) 107 mg/dL (70-99) White Blood Count 3.4 x10^3/uL (4.0-11.0) Red Blood Count 4.09 x10^6/uL (3.50-5.40) Hemoglobin 11.7 g/dL (12.0-15.5) Hematocrit 36.0 % (36.0-47.0) Mean Corpuscular Volume 88 fL (79-100) Mean Corpuscular Hemoglobin 29 pg (25-35) Mean Corpuscular Hemoglobin Concent 33 g/dL (31-37) Red Cell Distribution Width 14.1 % (11.5-14.5) Platelet Count 191 x10^3/uL (140-400) Neutrophils (%) (Auto) 57 % (31-73) Lymphocytes (%) (Auto) 29 % (24-48) Monocytes (%) (Auto) 12 % (0-9) Eosinophils (%) (Auto) 1 % (0-3) Basophils (%) (Auto) 0 % (0-3) Neutrophils # (Auto) 2.0 x10^3uL (1.8-7.7) Lymphocytes # (Auto) 1.0 x10^3/uL (1.0-4.8) Monocytes # (Auto) 0.4 x10^3/uL (0.0-1.1) Eosinophils # (Auto) 0.0 x10^3/uL (0.0-0.7) Basophils # (Auto) 0.0 x10^3/uL (0.0-0.2) Sodium Level 136 mmol/L (136-145) Potassium Level 4.1 mmol/L (3.5-5.1) Chloride Level 104 mmol/L (98-107) Carbon Dioxide Level 25 mmol/L (21-32) Anion Gap 7 (6-14) Blood Urea Nitrogen 18 mg/dL (7-20) Creatinine 1.2 mg/dL (0.6-1.0) Estimated GFR (Cockcroft-Gault) 56.4 Glucose Level 128 mg/dL (70-99) Calcium Level 8.5 mg/dL (8.5-10.1) Test 05/21/17 07:35 Glucose (Fingerstick) 133 mg/dL (70-99) Micro Micro Microbiology 05/19/17 Blood Culture - Preliminary, Resulted NO GROWTH AFTER 1 DAY 05/19/17 Urine Culture - Preliminary, Resulted 05/19/17 Urine Culture Result 1 (JOSE ALBERTO) - Preliminary, Resulted Physical Exam General Appearance: no apparent distress Neurology: alert, oriented Assessment Assessment IMP MANASA-DUE TO NSAID ABUSE-RESOLVED PLAN ASKED PT TO AVOID NSAID USE NO EVIDENCE OF ACTIVE LUPUS NEPHRITIS EVIDENCED BY THE FACT HER KIDNEYS GOT BETTER WITH JUST IVF'S ALONE I WILL SIGN OFF MATY TEJADA MD May 21, 2017 11:45
--- NOTE | 2017-05-21 12:17 | PDOC ---
PROGRESS NOTES Chief Complaint Chief Complaint CC: Chest pain 1. Acute renal failure 2. SLE 3. DM 4. HTN 5. Asthma 6. CAD History of Present Illness History of Present Illness Pt came in w/chest pain and whole body pain that was most likely due to SLE flare. Pt's UTI showed gram negative rods. Refused IVF as pt thought it caused knee pain. Vitals Vitals Vital Signs Date Time Temp Pulse Resp B/P (MAP) Pulse Ox O2 Delivery O2 Flow Rate FiO2 05/21/17 07:45 Room Air 05/21/17 07:00 98.8 90 22 99/59 (72) 93 98.8 Physical Exam General: Alert, Oriented X3, Cooperative, No acute distress Heart: Regular rate (SR), Normal S1, Normal S2, Other (2/6 systolic murmur to LLS border) Abdomen: Soft, No tenderness Extremities: No cyanosis, Other (RLE edema) Skin: No breakdown, Other (facial dark red macular rash) Labs LABS Laboratory Tests Test 05/20/17 12:06 05/20/17 17:24 05/20/17 20:51 05/21/17 05:36 Glucose (Fingerstick) 128 mg/dL (70-99) 96 mg/dL (70-99) 107 mg/dL (70-99) White Blood Count 3.4 x10^3/uL (4.0-11.0) Red Blood Count 4.09 x10^6/uL (3.50-5.40) Hemoglobin 11.7 g/dL (12.0-15.5) Hematocrit 36.0 % (36.0-47.0) Mean Corpuscular Volume 88 fL (79-100) Mean Corpuscular Hemoglobin 29 pg (25-35) Mean Corpuscular Hemoglobin Concent 33 g/dL (31-37) Red Cell Distribution Width 14.1 % (11.5-14.5) Platelet Count 191 x10^3/uL (140-400) Neutrophils (%) (Auto) 57 % (31-73) Lymphocytes (%) (Auto) 29 % (24-48) Monocytes (%) (Auto) 12 % (0-9) Eosinophils (%) (Auto) 1 % (0-3) Basophils (%) (Auto) 0 % (0-3) Neutrophils # (Auto) 2.0 x10^3uL (1.8-7.7) Lymphocytes # (Auto) 1.0 x10^3/uL (1.0-4.8) Monocytes # (Auto) 0.4 x10^3/uL (0.0-1.1) Eosinophils # (Auto) 0.0 x10^3/uL (0.0-0.7) Basophils # (Auto) 0.0 x10^3/uL (0.0-0.2) Sodium Level 136 mmol/L (136-145) Potassium Level 4.1 mmol/L (3.5-5.1) Chloride Level 104 mmol/L (98-107) Carbon Dioxide Level 25 mmol/L (21-32) Anion Gap 7 (6-14) Blood Urea Nitrogen 18 mg/dL (7-20) Creatinine 1.2 mg/dL (0.6-1.0) Estimated GFR (Cockcroft-Gault) 56.4 Glucose Level 128 mg/dL (70-99) Calcium Level 8.5 mg/dL (8.5-10.1) Test 05/21/17 07:35 Glucose (Fingerstick) 133 mg/dL (70-99) Review of Systems Review of Systems Complains of L knee pain Complains of L ear pain Resolving abd pain Assessment and Plan Assessmemt and Plan Problems Medical Problems: (1) Chest pain Status: Acute (2) UTI (urinary tract infection) Status: Acute CC: Chest pain: negative troponin, sinus rhythm EKG, pain has now resolved. 1. Acute renal failure: Cr was last 1.2, renal was consulted (appreciate the assistance) 2. UTI: Continue IVF, given prescription of Augmentin 875 bid X10d 3. SLE: Hx of occasional flares, does not take any [employer] meds, given prednisone 4. Albumin-protein dissociation: Likely due to infectious process, continue to monitor, consider SPEP if no improvement 5. Anemia: Mild right now, continue to follow. 6. DM: Continue to f/u on glucose levels 7. HTN: Continue to follow 8. Asthma: Continue to follow 9. CAD: Continue to follow Dispo: DC to home today 05/21/17 Problems: Comment Review of Relevant I have reviewed the following items kelli (where applicable) has been applied. Labs Laboratory Tests Test 05/19/17 19:20 05/19/17 19:30 05/19/17 19:47 05/20/17 02:50 White Blood Count 2.2 x10^3/uL (4.0-11.0) 2.2 x10^3/uL (4.0-11.0) Red Blood Count 4.62 x10^6/uL (3.50-5.40) 4.14 x10^6/uL (3.50-5.40) Hemoglobin 13.4 g/dL (12.0-15.5) 11.8 g/dL (12.0-15.5) Hematocrit 40.7 % (36.0-47.0) 36.3 % (36.0-47.0) Mean Corpuscular Volume 88 fL (79-100) 88 fL (79-100) Mean Corpuscular Hemoglobin 29 pg (25-35) 29 pg (25-35) Mean Corpuscular Hemoglobin Concent 33 g/dL (31-37) 33 g/dL (31-37) Red Cell Distribution Width 14.7 % (11.5-14.5) 14.1 % (11.5-14.5) Platelet Count 175 x10^3/uL (140-400) 157 x10^3/uL (140-400) Neutrophils (%) (Auto) 44 % (31-73) 73 % (31-73) Lymphocytes (%) (Auto) 45 % (24-48) 18 % (24-48) Monocytes (%) (Auto) 8 % (0-9) 8 % (0-9) Eosinophils (%) (Auto) 2 % (0-3) 0 % (0-3) Basophils (%) (Auto) 1 % (0-3) 0 % (0-3) Neutrophils # (Auto) 1.0 x10^3uL (1.8-7.7) 1.6 x10^3uL (1.8-7.7) Lymphocytes # (Auto) 1.0 x10^3/uL (1.0-4.8) 0.4 x10^3/uL (1.0-4.8) Monocytes # (Auto) 0.2 x10^3/uL (0.0-1.1) 0.2 x10^3/uL (0.0-1.1) Eosinophils # (Auto) 0.0 x10^3/uL (0.0-0.7) 0.0 x10^3/uL (0.0-0.7) Basophils # (Auto) 0.0 x10^3/uL (0.0-0.2) 0.0 x10^3/uL (0.0-0.2) Erythrocyte Sedimentation Rate 43 (0-25) Prothrombin Time 14.5 SEC (11.7-14.0) Prothromb Time International Ratio 1.2 (0.8-1.1) Urine Collection Type Unknown Urine Color Disha Urine Clarity Turbid Urine pH 5.0 Urine Specific Jud 1.020 Urine Protein 100 mg/dL (NEG-TRACE) Urine Glucose (UA) Negative mg/dL (NEG) Urine Ketones (Stick) Trace mg/dL (NEG) Urine Blood Large (NEG) Urine Nitrite Negative (NEG) Urine Bilirubin Moderate (NEG) Urine Urobilinogen Dipstick 1.0 mg/dL (0.2 mg/dL) Urine Leukocyte Esterase Moderate (NEG) Urine RBC 0 /HPF (0-2) Urine WBC 5-10 /HPF (0-4) Urine Squamous Epithelial Cells Mod /LPF Urine Bacteria Many /HPF (0-FEW) Urine Hyaline Casts Few /HPF Urine Mucus Mod /LPF Urine Opiates Screen Neg (NEG) Urine Methadone Screen Neg (NEG) Urine Barbiturates Neg (NEG) Urine Phencyclidine Screen Neg (NEG) Urine Amphetamine/Methamphetamine Neg (NEG) Urine Benzodiazepines Screen Neg (NEG) Urine Cocaine Screen Pos (NEG) Urine Cannabinoids Screen Pos (NEG) Urine Ethyl Alcohol Neg (NEG) Sodium Level 135 mmol/L (136-145) Potassium Level 3.8 mmol/L (3.5-5.1) Chloride Level 100 mmol/L (98-107) Carbon Dioxide Level 23 mmol/L (21-32) Anion Gap 12 (6-14) Blood Urea Nitrogen 42 mg/dL (7-20) Creatinine 2.8 mg/dL (0.6-1.0) Estimated GFR (Cockcroft-Gault) 21.2 Glucose Level 115 mg/dL (70-99) Calcium Level 8.7 mg/dL (8.5-10.1) Magnesium Level 2.2 mg/dL (1.8-2.4) Total Bilirubin 0.6 mg/dL (0.2-1.0) Direct Bilirubin 0.3 mg/dL (0.0-0.2) Aspartate Amino Transf (AST/SGOT) 40 U/L (15-37) Alanine Aminotransferase (ALT/SGPT) 58 U/L (14-59) Alkaline Phosphatase 91 U/L (46-116) Creatine Kinase 25 U/L (26-192) Creatine Kinase MB (Mass) < 0.5 ng/mL (0.0-3.6) Creatine Kinase MB Relative Index % (0-4) Troponin I Quantitative < 0.017 ng/mL (0.000-0.055) < 0.017 ng/mL (0.000-0.055) XM-Vxw-X-Type Natriuretic Peptide 178 pg/mL (0-124) Total Protein 8.2 g/dL (6.4-8.2) Albumin 3.0 g/dL (3.4-5.0) Lipase 73 U/L (73-393) Thyroid Stimulating Hormone (TSH) 1.089 uIU/mL (0.358-3.74) Complement C3 121 mg/dL (82-167) Complement C4 25 mg/dL (14-44) Test 05/20/17 04:00 05/20/17 08:40 05/20/17 12:06 05/20/17 17:24 Sodium Level 135 mmol/L (136-145) Potassium Level 4.4 mmol/L (3.5-5.1) Chloride Level 103 mmol/L (98-107) Carbon Dioxide Level 22 mmol/L (21-32) Anion Gap 10 (6-14) Blood Urea Nitrogen 35 mg/dL (7-20) Creatinine 1.9 mg/dL (0.6-1.0) Estimated GFR (Cockcroft-Gault) 33.2 BUN/Creatinine Ratio 18 (6-20) Glucose Level 176 mg/dL (70-99) Calcium Level 8.3 mg/dL (8.5-10.1) Total Bilirubin 0.4 mg/dL (0.2-1.0) Aspartate Amino Transf (AST/SGOT) 44 U/L (15-37) Alanine Aminotransferase (ALT/SGPT) 56 U/L (14-59) Alkaline Phosphatase 87 U/L (46-116) Total Protein 7.2 g/dL (6.4-8.2) Albumin 2.8 g/dL (3.4-5.0) Albumin/Globulin Ratio 0.6 (1.0-1.7) Triglycerides Level 162 mg/dL (0-150) Cholesterol Level 111 mg/dL (0-200) LDL Cholesterol, Calculated 70 mg/dL (0-100) VLDL Cholesterol, Calculated 32 mg/dL (0-40) Non-HDL Cholesterol Calculated 102 mg/dL (0-129) HDL Cholesterol 9 mg/dL (40-60) Cholesterol/HDL Ratio 12.3 Troponin I Quantitative < 0.017 ng/mL (0.000-0.055) Glucose (Fingerstick) 128 mg/dL (70-99) 96 mg/dL (70-99) Test 05/20/17 20:51 05/21/17 05:36 05/21/17 07:35 Glucose (Fingerstick) 107 mg/dL (70-99) 133 mg/dL (70-99) White Blood Count 3.4 x10^3/uL (4.0-11.0) Red Blood Count 4.09 x10^6/uL (3.50-5.40) Hemoglobin 11.7 g/dL (12.0-15.5) Hematocrit 36.0 % (36.0-47.0) Mean Corpuscular Volume 88 fL (79-100) Mean Corpuscular Hemoglobin 29 pg (25-35) Mean Corpuscular Hemoglobin Concent 33 g/dL (31-37) Red Cell Distribution Width 14.1 % (11.5-14.5) Platelet Count 191 x10^3/uL (140-400) Neutrophils (%) (Auto) 57 % (31-73) Lymphocytes (%) (Auto) 29 % (24-48) Monocytes (%) (Auto) 12 % (0-9) Eosinophils (%) (Auto) 1 % (0-3) Basophils (%) (Auto) 0 % (0-3) Neutrophils # (Auto) 2.0 x10^3uL (1.8-7.7) Lymphocytes # (Auto) 1.0 x10^3/uL (1.0-4.8) Monocytes # (Auto) 0.4 x10^3/uL (0.0-1.1) Eosinophils # (Auto) 0.0 x10^3/uL (0.0-0.7) Basophils # (Auto) 0.0 x10^3/uL (0.0-0.2) Sodium Level 136 mmol/L (136-145) Potassium Level 4.1 mmol/L (3.5-5.1) Chloride Level 104 mmol/L (98-107) Carbon Dioxide Level 25 mmol/L (21-32) Anion Gap 7 (6-14) Blood Urea Nitrogen 18 mg/dL (7-20) Creatinine 1.2 mg/dL (0.6-1.0) Estimated GFR (Cockcroft-Gault) 56.4 Glucose Level 128 mg/dL (70-99) Calcium Level 8.5 mg/dL (8.5-10.1) Laboratory Tests Test 05/20/17 12:06 05/20/17 17:24 05/20/17 20:51 05/21/17 05:36 Glucose (Fingerstick) 128 mg/dL (70-99) 96 mg/dL (70-99) 107 mg/dL (70-99) White Blood Count 3.4 x10^3/uL (4.0-11.0) Red Blood Count 4.09 x10^6/uL (3.50-5.40) Hemoglobin 11.7 g/dL (12.0-15.5) Hematocrit 36.0 % (36.0-47.0) Mean Corpuscular Volume 88 fL (79-100) Mean Corpuscular Hemoglobin 29 pg (25-35) Mean Corpuscular Hemoglobin Concent 33 g/dL (31-37) Red Cell Distribution Width 14.1 % (11.5-14.5) Platelet Count 191 x10^3/uL (140-400) Neutrophils (%) (Auto) 57 % (31-73) Lymphocytes (%) (Auto) 29 % (24-48) Monocytes (%) (Auto) 12 % (0-9) Eosinophils (%) (Auto) 1 % (0-3) Basophils (%) (Auto) 0 % (0-3) Neutrophils # (Auto) 2.0 x10^3uL (1.8-7.7) Lymphocytes # (Auto) 1.0 x10^3/uL (1.0-4.8) Monocytes # (Auto) 0.4 x10^3/uL (0.0-1.1) Eosinophils # (Auto) 0.0 x10^3/uL (0.0-0.7) Basophils # (Auto) 0.0 x10^3/uL (0.0-0.2) Sodium Level 136 mmol/L (136-145) Potassium Level 4.1 mmol/L (3.5-5.1) Chloride Level 104 mmol/L (98-107) Carbon Dioxide Level 25 mmol/L (21-32) Anion Gap 7 (6-14) Blood Urea Nitrogen 18 mg/dL (7-20) Creatinine 1.2 mg/dL (0.6-1.0) Estimated GFR (Cockcroft-Gault) 56.4 Glucose Level 128 mg/dL (70-99) Calcium Level 8.5 mg/dL (8.5-10.1) Test 05/21/17 07:35 Glucose (Fingerstick) 133 mg/dL (70-99) Microbiology 05/19/17 Blood Culture - Preliminary, Resulted NO GROWTH AFTER 1 DAY 05/19/17 Urine Culture - Preliminary, Resulted 05/19/17 Urine Culture Result 1 (JOSE ALBERTO) - Preliminary, Resulted Medications Current Medications Nitroglycerin (Nitrostat) 0.4 mg PRN Q5MIN PRN SL CP RATING > 1/10 Last administered on 05/19/17 19:41; Start 05/19/17 at 18:45; Stop 05/20/17 at 18:44 ; Status DC Morphine Sulfate 2 mg PRN Q15MIN PRN IV/SQ PAIN GREATER THAN 3/10; Start at 18:45; Stop 05/19/17 at 19:23; Status DC Sodium Chloride 1,000 ml @ 1,000 mls/hr 1X ONCE IV Last administered on 19:36; Start 05/19/17 at 19:00; Stop 05/19/17 at 20:07; Status DC Ondansetron HCl (Zofran) 4 mg 1X ONCE IV Last administered on 05/19/17 19:38 ; Start 05/19/17 at 19:00; Stop 05/19/17 at 19:01; Status DC Morphine Sulfate 2 mg PRN Q15MIN PRN IV/SQ PAIN GREATER THAN 3/10 Last administered on 05/19/17 19:39; Start 05/19/17 at 19:23; Stop 05/20/17 at 18:44 ; Status DC Sodium Chloride 1,000 ml @ 1,000 mls/hr 1X ONCE IV Last administered on 20:35; Start 05/19/17 at 20:15; Stop 05/19/17 at 21:14; Status DC Ceftriaxone Sodium 1 gm/ Sodium Chloride 50 ml @ 100 mls/hr 1X STAT IV ; Start 05/19/17 at 20:17; Stop 05/19/17 at 20:46; Status UNV Ceftriaxone Sodium 50 ml @ 100 mls/hr 1X ONCE IV Last administered on 20:35; Start 05/19/17 at 20:30; Stop 05/19/17 at 20:59; Status DC Ondansetron HCl (Zofran) 4 mg PRN Q8HRS PRN IV NAUSEA/VOMITING; Start 05/19/17 at 20:30; Stop 05/20/17 at 20:29; Status DC Morphine Sulfate 2 mg PRN Q2HR PRN IV PAIN; Start 05/19/17 at 20:30; Stop 05/20 at 20:29; Status DC Acetaminophen (Tylenol) 650 mg PRN Q6HRS PRN PO FEVER Last administered on 05/20 18:21; Start 05/19/17 at 21:00 Ondansetron HCl (Zofran) 4 mg PRN Q6HRS PRN IV NAUSEA/VOMITING; Start 05/19/17 at 21:00 Morphine Sulfate 2 mg PRN Q2HR PRN IV MODERATE TO SEVERE PAIN Last administered on 05/21/17 03:20; Start 05/19/17 at 21:15 Tramadol HCl (Ultram) 50 mg PRN Q6HRS PRN PO PAIN Last administered on 05:44; Start 05/19/17 at 21:00 Hydralazine HCl (Apresoline) 10 mg PRN Q4HRS PRN IVP ELEVATED BP, SEE COMMENTS ; Start 05/19/17 at 21:00 Docusate Sodium (Colace) 100 mg PRN DAILY PRN PO CONSTIPATION; Start 05/19/17 at 21:00 Ceftriaxone Sodium 1 gm/ Sodium Chloride 50 ml @ 100 mls/hr Q24H IV Last administered on 05/20/17 20:58; Start 05/20/17 at 20:00 Prednisone (Prednisone) 60 mg 1X ONCE PO Last administered on 05/19/17 21:37 ; Start 05/19/17 at 21:00; Stop 05/19/17 at 21:01; Status DC Famotidine (Pepcid) 20 mg 1X ONCE PO Last administered on 05/19/17 21:36; Start 05/19/17 at 21:00; Stop 05/19/17 at 21:01; Status DC Heparin Sodium (Porcine) (Heparin Sq) 5,000 unit Q8HRS SQ Last administered on 05/21/17 05:43; Start 05/19/17 at 22:00 Sodium Chloride 1,000 ml @ 100 mls/hr CONT PRN IV SEE I/O RECORD Last administered on 05/20/17 08:49; Start 05/19/17 at 21:00 Dextrose (Dextrose 50%-Water Syringe) 12.5 gm PRN Q15MIN PRN IV SEE COMMENTS; Start 05/20/17 at 06:30 Aspirin (Ecotrin) 81 mg [id number] PO Last administered on 05/21/17 09:06; Start 05/20/17 at 12:00 Active Scripts Active Clindamycin Hcl 150 Mg Capsule 3 Cap PO TID Clindamycin Hcl 300 Mg Capsule 450 Mg PO TID 14 Days Reported Vitamin D2 (Ergocalciferol (Vitamin D2)) 50,000 Unit Capsule 50,000 Units PO QM Vitals/I & O Vital Sign - Last 24 Hours 05/20/17 05/20/17 05/20/17 05/20/17 15:05 16:56 19:00 20:00 Temp 98.5 98.6 98.5 98.6 Pulse 71 83 Resp 18 21 B/P (MAP) 128/84 (99) 115/65 (82) Pulse Ox 99 97 O2 Delivery Room Air Room Air Room Air Room Air 05/20/17 05/20/17 05/20/17 05/21/17 21:07 22:51 23:27 00:27 Temp 98.9 98.9 Pulse 77 Resp 18 19 15 18 B/P (MAP) 134/84 (101) Pulse Ox 99 O2 Delivery Room Air Room Air Room Air 05/21/17 05/21/17 05/21/17 05/21/17 03:20 03:50 05:44 07:00 Temp 98.8 98.8 Pulse 90 Resp 17 16 18 22 B/P (MAP) 99/59 (72) Pulse Ox 99 93 O2 Delivery Room Air Room Air Room Air 05/21/17 07:45 O2 Delivery Room Air Intake and Output 05/20/17 05/20/17 05/21/17 15:00 23:00 07:00 Intake Total 450 ml 1200 ml Output Total 500 ml 0 ml Balance -50 ml 1200 ml 0 ml SISI REYES III DO May 21, 2017 12:17
[2017-05-21] MEDS ORDERED: AMOX1TAB61 PO (12:23)
== END 2017-05-21 13:35 | disposition home or self-care (01) | DRG 545 ==
LOC: ER 18:32 → 6 SOUTH 20:45
PROVIDERS: ADMIT Internal Medicine; ATTEND Internal Medicine
DX: M32.9 Systemic lupus erythematosus, unspecified (principal); N17.0 Acute kidney failure with tubular necrosis; D70.9 Neutropenia, unspecified; E11.22 Type 2 diabetes mellitus with diabetic chronic kidney disease; E44.1 Mild protein-calorie malnutrition; I27.2 Other secondary pulmonary hypertension; N39.0 Urinary tract infection, site not specified; N18.9 Chronic kidney disease, unspecified; I12.9 Hypertensive chronic kidney disease with stage 1 through stage 4 chronic kidney disease, or unspecified chronic kidney disease; E86.0 Dehydration; F12.10 Cannabis abuse, uncomplicated; F17.210 Nicotine dependence, cigarettes, uncomplicated; T39.395A Adverse effect of other nonsteroidal anti-inflammatory drugs [NSAID], initial encounter; B96.89 Other specified bacterial agents as the cause of diseases classified elsewhere; F41.9 Anxiety disorder, unspecified; M19.90 Unspecified osteoarthritis, unspecified site; M25.461 Effusion, right knee; R70.0 Elevated erythrocyte sedimentation rate; Z82.49 Family history of ischemic heart disease and other diseases of the circulatory system; Z68.29 Body mass index [BMI] 29.0-29.9, adult; Z88.0 Allergy status to penicillin
CPT/HCPCS: 36415; 71010; 80048; 80053; 80061; 80076; 80307; 81001; 82553; 82962; 83690; 83735; 83880; 84443; 84484; 85025; 85610; 85651; 86160; 87040; 87086; 87186; 87801; 93005; 93306; 96361; 96365; 96375; J0690; J0696; J2270; J2405; J7030; J7512; 99285-25; G0479

== ENCOUNTER 2017-06-04 12:23 | Emergency (ER) | payer OTHER ==
[~2017-06-04 12:23] MED LIST changes: +AMOX1TAB61 PO
[2017-06-04 12:40] VITALS: BP 110/71
[2017-06-04] MEDS ORDERED: IBUPROFEN 800 MG TABLET. PO ONE (13:00)
--- NOTE | 2017-06-04 13:13 | PHYS DOC ---
Past Medical History Past Medical History: Arthritis, Hypertension, Other Additional Past Medical Histor: LUPUS Past Surgical History: Additional Information: 09/29 PPD. Alcohol Use: None Drug Use: Marijuana Adult General Chief Complaint Chief Complaint: KNEE INJURY [facility] HPI Patient is a 56 year old female presents to the emergency department stating that she had fallen on her right knee 2 days ago. She states that she has having increased pain with trying to straighten her knee out. She has increased pain with trying to bend her knee. Patient states she was just released from the hospital on 21 May for swelling in her legs. Patient states that she has been having increased pain with ambulation. She denies any numbness or tingling down to her lower extremities. She rates the pain a 10 out of 10. She states the pain is sharp. Review of Systems Review of Systems Constitutional: Denies fever or chills [] Eyes: Denies change in visual acuity, redness, or eye pain [] HENT: Denies nasal congestion or sore throat [] Respiratory: Denies cough or shortness of breath [] Cardiovascular: No additional information not addressed in HPI [] GI: Denies abdominal pain, nausea, vomiting, bloody stools or diarrhea [] : Denies dysuria or hematuria [] Musculoskeletal: Denies back pain. Complaint of right knee pain Integument: Denies rash or skin lesions [] Neurologic: Denies headache, focal weakness or sensory changes [] Endocrine: Denies polyuria or polydipsia [] Current Medications Current Medications Current Medications Medications (Trade) Dose Ordered Sig/Quinton Start Time Stop Time Status Last Admin Dose Admin Ibuprofen (Motrin) 800 mg 1X ONCE 06/04/17 13:00 06/04/17 13:01 DC 06/04/17 13:09 800 MG Allergies Allergies Allergies Coded Allergies Type Severity Reaction Last Updated Verified Penicillins Allergy Intermediate 01/02/14 Yes Physical Exam Physical Exam Constitutional: Well developed, well nourished, no acute distress, non-toxic appearance. [] HENT: Normocephalic, atraumatic, bilateral external ears normal, oropharynx moist, no oral exudates, nose normal. [] Eyes: PERRLA, EOMI, conjunctiva normal, no discharge. [] Neck: Normal range of motion, no tenderness, supple, no stridor. [] Cardiovascular:Heart rate regular rhythm, no murmur [] Lungs & Thorax: Bilateral breath sounds clear to auscultation [] Skin: Warm, dry, no erythema, no rash. [] Back: No tenderness Extremities: Right knee tenderness noted anteriorly, medial and lateral. Patient with swelling noted. No redness no discoloration noted. Patient did have tenderness noted over the patella area. Peripheral pulses 2+. Cap refill brisk less than 2 seconds. no cyanosis, no clubbing, ROM intact, no edema. [] Neurologic: Alert and oriented X 3, normal motor function, normal sensory function, no focal deficits noted. [] Psychologic: Affect normal, judgement normal, mood normal. [] Current Patient Data Vital Signs Vital Signs Date Time Temp Pulse Resp B/P (MAP) Pulse Ox O2 Delivery O2 Flow Rate FiO2 06/04/17 12:40 98.3 76 20 100 Room Air 98.3 EKG EKG [] Radiology/Procedures Radiology/Procedures [][facility] [address] [place] [address] IMAGING REPORT Signed PATIENT: COLTEN HILL ACCOUNT: [id number] : 1960 LOCATION: ER AGE: 56 SEX: F EXAM STATUS: PRE ER ORD. PHYSICIAN: JOSHUA AMAYA APRN REASON: fell 2 days ago pain to the right knee/hurts to straighten and bend/ swollen PROCEDURE: KNEE RIGHT 3V Right knee radiograph 06/04/2017 at 1247 hours Indication: Swelling and pain of the right knee. Comparison: None available Technique: 3 views of the right knee are provided. Findings: There is no acute fracture or dislocation. There is a small knee joint effusion. There is joint space narrowing, most prominent in the medial knee joint compartment. Small patellar osteophytes are present. Impression: 1. No acute fracture or dislocation. 2. Small knee joint effusion. DICTATED and SIGNED BY: MELIA CARRANZA MD DATE: 06/04/17 1313 CC: JOSHUA AMAYA APRN; ISABEL WALLER MD ~ Course & Med Decision Making Course & Med Decision Making Pertinent Labs and Imaging studies reviewed. (See chart for details) Patient was provided with ibuprofen here in the emergency department. She was taken over to x-ray in which radiology states that they were attempting to get the x-rays was unable to get a sunrise view as patient was unable to completely bend her knee, she was unable to straighten her knee. They state that she was uncooperative at obtaining x-rays. X-ray was negative for any bony abnormalities. Patient was noted to have a small joint effusion per radiology. Patient will be placed in Petey wrap and a knee immobilizer. She'll be provided with crutches to help with ambulation. She' ll be recommended to follow-up with orthopedic within the next week. Recommended ibuprofen and Tylenol for pain and discomfort. Ice packs on 20 minutes off 20 minutes several times a day. Elevation as much as possible. Patient agrees with discharge instructions, treatment regimens and follow-up recommendations. All concerns and questions have been answered at patient's bedside. [] Dragon Disclaimer Dragon Disclaimer This electronic medical record was generated, in whole or in part, using a voice recognition dictation system. Departure Departure Impression: Primary Impression: Effusion of knee joint right Disposition: 01 HOME, SELF-CARE Condition: STABLE Referrals: ISABEL WALLER MD (PCP) MARY DURAN MD Patient Instructions: Knee Effusion, [id number] Additional Instructions: Activity as tolerated Tylenol or Ibuprofen for pain and discomfort Elevation as much as possible Wear the petey wrap and knee immobilizer until you followup with orthopedic Use the crutches to help with ambulation Followup with orthopedic in 5-7 days Return to emergency department as needed for signs and symptoms that become worse. JOSHUA AMAYA APRN Jun 04, 2017 13:13
--- NOTE | 2017-06-04 13:17 | RAD ---
Right knee radiograph 06/04/2017 at 1247 hours Indication: Swelling and pain of the right knee. Comparison: None available Technique: 3 views of the right knee are provided. Findings: There is no acute fracture or dislocation. There is a small knee joint effusion. There is joint space narrowing, most prominent in the medial knee joint compartment. Small patellar osteophytes are present. Impression: 1. No acute fracture or dislocation. 2. Small knee joint effusion.
== END 2017-06-04 13:50 | disposition home or self-care (01) ==
LOC: ER 12:23
DX: M25.461 Effusion, right knee (principal); I10 Essential (primary) hypertension; M19.90 Unspecified osteoarthritis, unspecified site; F17.210 Nicotine dependence, cigarettes, uncomplicated; Z88.0 Allergy status to penicillin
CPT/HCPCS: 29505; 73562; 99284-25

== ENCOUNTER 2017-08-31 12:23 | Emergency (ER) | payer OTHER ==
--- NOTE | 2017-08-31 13:38 | EKG ---
[facility] [address] [place] [address] Test Date: 2017-08-31 Test Time: 12:50:33 Pat Name: COLTEN HILL Department: Room: Gender: F Manager Cafe: : 1960 Requested By: MARIA A HAWKINS Order Number: [id number] Reading MD: Measurements Intervals [place] Rate: 82 P: 77 NC: 156 QRS: -45 QRSD: 94 T: 40 QT: 356 QTc: 419 Interpretive Statements SINUS RHYTHM ABNORMAL LEFT AXIS DEVIATION ABNORMAL ECG RI6.01 No previous ECG available for comparison
[2017-08-31 13:51] LABS: BILIRUBIN,URINE NEGATIVE (NEG); GLUCOSE,URINE NEGATIVE (NEG); NITRITE,URINE POSITIVE (NEG); PROTEIN,URINE NEGATIVE (NEG-TRACE)
[2017-08-31 13:57] LABS: BASO % 1 % (0-3); EOS % 3 % (0-3); HEMATOCRIT 41.4 % (36.0-47.0); HEMOGLOBIN 13.3 g/dL (12.0-15.5); LYMPH # 1.9 x10^3/uL (1.0-4.8); LYMPH % 35 % (24-48); MEAN CORPUSCULAR HEMOGLOBIN 28 pg (25-35); MEAN CORPUSCULAR HGB CONC 32 g/dL (31-37); MEAN CORPUSCULAR VOLUME 87 fL (79-100); MONO % 7 % (0-9); NEUT % 55 % (31-73); PLATELET COUNT 379 x10^3/uL (140-400); RED BLOOD COUNT 4.73 x10^6/uL (3.50-5.40); RED CELL DISTRIBUTION WIDTH 14.8 % (11.5-14.5); WHITE BLOOD COUNT 5.5 x10^3/uL (4.0-11.0)
[2017-08-31 14:02] LABS: BACTERIA,URINE MANY /HPF (0-FEW); SQUAMOUS EPITHELIAL CELL,UR MOD /LPF; WBC,URINE >40 /HPF (0-4)
[2017-08-31 14:03] LABS: TRICHOMONAS,URINE PRESENT
[2017-08-31 14:09] LABS: PROTHROMBIN TIME PATIENT 12.7 SEC (11.7-14.0)
[2017-08-31 14:10] LABS: CALCIUM 8.9 mg/dL (8.5-10.1); GFR 69.4; POTASSIUM 3.8 mmol/L (3.5-5.1)
[2017-08-31] MEDS ORDERED: cefTRIAXone IM 250 MG VIAL IM ONE (14:15)
[2017-08-31] MEDS ORDERED: AZITHROMYCIN 250 MG TABLET. PO ONE (14:15)
[2017-08-31] MEDS ORDERED: metroNIDAZOLE 500 MG TABLET PO ONE (14:15)
[2017-08-31 14:16] LABS: ALBUMIN 2.8 g/dL (3.4-5.0); ALBUMIN/GLOBULIN RATIO 0.5 (1.0-1.7); TOTAL BILIRUBIN 0.2 mg/dL (0.2-1.0)
[2017-08-31] MEDS ORDERED: LEVO500T59 PO (14:20)
--- NOTE | 2017-08-31 14:25 | RAD ---
Chest, 2 views, 08/31/2017: History: Cough, bloody sputum Comparison is made to a study from February 16, 2017. The heart size and pulmonary vascularity are normal. There is a new pulmonary opacity on the right projected along superior aspect of the hilum on the PA view. It is not clearly defined on the lateral view. The left lung is clear. There is no evidence of pleural fluid. There is a mild thoracic scoliosis with scattered degenerative changes. IMPRESSION: New right parahilar opacity suggesting pneumonia versus a pulmonary neoplasm. Radiographic follow-up and/or CT scanning is suggested for further evaluation.
[2017-08-31 14:45] VITALS: BP 162/92
--- NOTE | 2017-08-31 15:12 | PHYS DOC ---
Past Medical History Past Medical History: Arthritis, Hypertension, Other Additional Past Medical Histor: LUPUS Past Surgical History: Alcohol Use: None Drug Use: Marijuana Adult General Chief Complaint Chief Complaint: COUGH HPI HPI Patient is a 57 year old female who presents with days of cough. Today she noted blood in her sputum. No fevers, pain only with cough. She denies a significant amount of blood in the sputum. No history of DVT or PEs. She takes no blood thinners. Patient also reports vaginal bleeding. She's been postmenopausal for 6 years. She denies any vaginal pain, no recent intercourse, denies any foreign bodies in the vagina. She denies dysuria. Review of Systems Review of Systems Constitutional: Denies fever or chills [] Eyes: Denies change in visual acuity, redness, or eye pain [] HENT: Denies nasal congestion or sore throat [] Respiratory: per history of present illness Cardiovascular: Denies chest pain GI: Denies abdominal pain, nausea, vomiting, bloody stools or diarrhea [] : Denies dysuria Musculoskeletal: Denies back pain or joint pain [] Integument: Denies rash or skin lesions [] Neurologic: Denies headache, focal weakness or sensory changes [] Current Medications Current Medications Current Medications Medications (Trade) Dose Ordered Sig/Quinton Start Time Stop Time Status Last Admin Dose Admin Azithromycin (Zithromax) 1,000 mg 1X ONCE 08/31/17 14:15 08/31/17 14:17 DC 08/31/17 14:25 1,000 MG Ceftriaxone Sodium (Rocephin Im) 250 mg 1X ONCE 08/31/17 14:15 08/31/17 14:17 DC 08/31/17 14:20 250 MG Metronidazole (Flagyl) 2,000 mg 1X ONCE 08/31/17 14:15 08/31/17 14:17 DC 08/31/17 14:25 2,000 MG Allergies Allergies Allergies Coded Allergies Type Severity Reaction Last Updated Verified Penicillins Allergy Intermediate 01/02/14 Yes Physical Exam Physical Exam Constitutional: Well developed, well nourished, no acute distress, non-toxic appearance. [] HENT: Normocephalic, atraumatic, bilateral external ears normal, oropharynx moist, no oral exudates, nose normal. [] Eyes: PERRLA, EOMI, conjunctiva normal, no discharge. [] Neck: Normal range of motion, no tenderness, supple, no stridor. [] Cardiovascular:Heart rate regular with regular rhythm, no murmur [] Lungs & Thorax: Bilateral breath sounds clear to auscultation ,no wheeze or crackles Abdomen: Bowel sounds normal, soft, no tenderness, no masses, no pulsatile masses. : + white discharge, no cmt, no adnexal ttp, no blood Skin: Warm, dry, no erythema, no rash. [] Back: No tenderness, no CVA tenderness. [] Extremities: No tenderness, no cyanosis, no clubbing, ROM intact, no edema. [] Neurologic: Alert and oriented X 3, normal motor function, normal sensory function, no focal deficits noted. [] Psychologic: Affect normal, judgement normal, mood normal. [] Current Patient Data Vital Signs Vital Signs Date Time Temp Pulse Resp B/P (MAP) Pulse Ox O2 Delivery O2 Flow Rate FiO2 08/31/17 14:45 80 162/92 (115) 98 Room Air 08/31/17 13:00 98.4 22 98.4 Lab Values Laboratory Tests Test 08/31/17 13:40 08/31/17 13:45 Urine Collection Type Unknown Urine Color Yellow Urine Clarity Clear Urine pH 7.0 Urine Specific Martin 1.020 Urine Protein Negative mg/dL (NEG-TRACE) Urine Glucose (UA) Negative mg/dL (NEG) Urine Ketones (Stick) Negative mg/dL (NEG) Urine Blood Moderate (NEG) Urine Nitrite Positive (NEG) Urine Bilirubin Negative (NEG) Urine Urobilinogen Dipstick 1.0 mg/dL (0.2 mg/dL) Urine Leukocyte Esterase Small (NEG) Urine RBC 11-20 /HPF (0-2) Urine WBC >40 /HPF (0-4) Urine Squamous Epithelial Cells Mod /LPF Urine Bacteria Many /HPF (0-FEW) Urine Trichomonas Present White Blood Count 5.5 x10^3/uL (4.0-11.0) Red Blood Count 4.73 x10^6/uL (3.50-5.40) Hemoglobin 13.3 g/dL (12.0-15.5) Hematocrit 41.4 % (36.0-47.0) Mean Corpuscular Volume 87 fL (79-100) Mean Corpuscular Hemoglobin 28 pg (25-35) Mean Corpuscular Hemoglobin Concent 32 g/dL (31-37) Red Cell Distribution Width 14.8 % (11.5-14.5) H Platelet Count 379 x10^3/uL (140-400) Neutrophils (%) (Auto) 55 % (31-73) Lymphocytes (%) (Auto) 35 % (24-48) Monocytes (%) (Auto) 7 % (0-9) Eosinophils (%) (Auto) 3 % (0-3) Basophils (%) (Auto) 1 % (0-3) Neutrophils # (Auto) 3.0 x10^3uL (1.8-7.7) Lymphocytes # (Auto) 1.9 x10^3/uL (1.0-4.8) Monocytes # (Auto) 0.4 x10^3/uL (0.0-1.1) Eosinophils # (Auto) 0.2 x10^3/uL (0.0-0.7) Basophils # (Auto) 0.0 x10^3/uL (0.0-0.2) Prothrombin Time 12.7 SEC (11.7-14.0) Prothrombin Time INR 1.0 (0.8-1.1) Sodium Level 141 mmol/L (136-145) Potassium Level 3.8 mmol/L (3.5-5.1) Chloride Level 105 mmol/L (98-107) Carbon Dioxide Level 29 mmol/L (21-32) Anion Gap 7 (6-14) Blood Urea Nitrogen 15 mg/dL (7-20) Creatinine 1.0 mg/dL (0.6-1.0) Estimated GFR (Cockcroft-Gault) 69.4 BUN/Creatinine Ratio 15 (6-20) Glucose Level 88 mg/dL (70-99) Calcium Level 8.9 mg/dL (8.5-10.1) Total Bilirubin 0.2 mg/dL (0.2-1.0) Aspartate Amino Transferase (AST) 14 U/L (15-37) L Alanine Aminotransferase (ALT) 17 U/L (14-59) Alkaline Phosphatase 120 U/L (46-116) H Troponin I Quantitative < 0.017 ng/mL (0.000-0.055) Total Protein 8.0 g/dL (6.4-8.2) Albumin 2.8 g/dL (3.4-5.0) L Albumin/Globulin Ratio 0.5 (1.0-1.7) L Laboratory Tests 08/31/17 13:45 Laboratory Tests 08/31/17 13:45 EKG EKG 82 bpm, sinus, leftward axis, normal intervals, J-point elevation precordial leads, no ST elevation or depression, nonischemic T waves, interpreted by me, at 1250 Radiology/Procedures Radiology/Procedures Chest x-ray:IMPRESSION: New right parahilar opacity suggesting pneumonia versus a pulmonary neoplasm. Radiographic follow-up and/or CT scanning is suggested for further evaluation. Course & Med Decision Making Course & Med Decision Making Pertinent Labs and Imaging studies reviewed. (See chart for details) Patient presents with symptoms of pneumonia, x-ray does confirm this. This infiltrate was not present just a few months ago. Recommended follow-up with primary care physician for resolution. Discharged with Levaquin. Pt has Trichomonas in her urinalysis. Patient was treated with 2 g of Flagyl, also treated for possible gonorrhea and chlamydia, Rocephin and azithromycin given. Counseled on STD precautions and having partners tested and treated. Dragon Disclaimer Dragon Disclaimer This electronic medical record was generated, in whole or in part, using a voice recognition dictation system. Departure Departure Impression: Primary Impression: Pneumonia Additional Impression: Trichomoniasis Disposition: 01 HOME, SELF-CARE Condition: STABLE Patient Instructions: Trichomoniasis-Brief, Pneumonia, Adult, [id number] Scripts Levofloxacin (LEVAQUIN) 500 Mg Tablet 1 TAB PO DAILY, #7 TAB Prov: MARIA A HAWKINS MD 08/31/17 Problem Qualifiers MARIA A HAWKINS MD Aug 31, 2017 15:12
== END 2017-08-31 15:06 | disposition home or self-care (01) ==
LOC: ER 12:23
DX: J18.9 Pneumonia, unspecified organism (principal); A59.9 Trichomoniasis, unspecified; M19.90 Unspecified osteoarthritis, unspecified site; I10 Essential (primary) hypertension; M32.9 Systemic lupus erythematosus, unspecified; F12.10 Cannabis abuse, uncomplicated; Z88.0 Allergy status to penicillin
CPT/HCPCS: 36415; 71020; 80053; 81001; 84484; 85025; 85610; 87086; 93005; 96372; 99285; J0696; Q0144

== ENCOUNTER 2018-07-08 08:11 | Emergency (ER) | payer OTHER ==
[~2018-07-08] VITALS: Ht 175.3 cm; Wt 80.7 kg
[~2018-07-08 08:11] MED LIST changes: +LEVO500T59 PO
[2018-07-08 08:41] VITALS: BP 189/108
[2018-07-08] MEDS ORDERED: HYDROcodone/APAP 5/325MG 1 TAB TABLET PO ONE (08:45)
[2018-07-08] MEDS ORDERED: DIPHTH,PERTUSS(ACELL),TET TOX 0.5 ML DISP.SYRIN. VAX IM ONE (08:45)
[2018-07-08] MEDS ORDERED: silver sulfADIAZINE 1% CREAM 25GM TUBE. TP ONE (08:45)
[2018-07-08] MEDS ORDERED: SILV20CR14 TP (08:57)
[2018-07-08] MEDS ORDERED: HYDR-971 PO (08:58)
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
== END 2018-07-08 09:11 | disposition home or self-care (01) ==
LOC: ER 08:11
DX: T23.212A Burn of second degree of left thumb (nail), initial encounter (principal); I10 Essential (primary) hypertension; Z88.0 Allergy status to penicillin; W29.0XXA Contact with powered kitchen appliance, initial encounter; Y93.G3 Activity, cooking and baking; Y92.89 Other specified places as the place of occurrence of the external cause; Y99.8 Other external cause status
CPT/HCPCS: 10060; 16020; 90471; 90715; 99284-25

== ENCOUNTER 2018-07-09 10:45 | Emergency (ER) | payer OTHER ==
[~2018-07-09] VITALS: Ht 177.8 cm; Wt 84.8 kg
[~2018-07-09 10:45] MED LIST changes: +SILV20CR14 TP
[2018-07-09] MEDS ORDERED: BUPIVACAINE 0.5% 50 ML VIAL. IJ ONE (11:30)
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
[2018-07-09] MEDS ORDERED: oxyCODONE/APAP 5/325 1 TAB TABLET PO ONE (13:00)
[2018-07-09 13:17] VITALS: BP 133/89
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
== END 2018-07-09 13:42 | disposition short-term general hospital (02) ==
LOC: ER 10:45
DX: T23.212D Burn of second degree of left thumb (nail), subsequent encounter (principal); M79.645 Pain in left finger(s); I10 Essential (primary) hypertension; Z88.0 Allergy status to penicillin; X19.XXXD Contact with other heat and hot substances, subsequent encounter
CPT/HCPCS: 64450; 76881; 99285; J3490

== ENCOUNTER 2019-01-13 05:48 | Inpatient (IN) | payer SELFPAY ==
[~2019-01-13] VITALS: Ht 175.3 cm; Wt 77.6 kg
[~2019-01-13 05:48] MED LIST changes: +HYDR-3164 PO; -HYDR-971 PO; -HYDR12.53 PO; +HYDR12.575 PO; +OMEP20CA10 PO; -OMEP20CA9 PO
--- NOTE | 2019-01-13 06:17 | PHYS DOC ---
Past Medical History Past Medical History: Arthritis, Hypertension, Other Additional Past Medical Histor: LUPUS Past Surgical History: Smoking: Cigarettes Alcohol Use: None Drug Use: Marijuana Adult General Chief Complaint Chief Complaint: CHEST PAIN HPI HPI 58-year-old female presenting to the emergency department today with chest pain. She describes it as a sharp shooting pain in the left-sided chest is nonradiating. It started around 11 AM. No alleviating or exacerbating factors. She has a history of lupus and smokes. She denies diabetes. She does have hypertension. She denies hyperlipidemia. The patient denies unilateral leg swelling hemoptysis family or personal history of blood clotting disorders. The pt denies recent immobilization or surgery. Review of systems is negative for diaphoresis. Positive for nausea. Negative for shortness of breath abdominal pain vomiting. All other review of systems is negative unless otherwise noted in history of present illness. ED course: 58-year-old female presenting to the emergency department today with chest pain. On arrival she is afebrile with a normal heart rate. Blood pressure is mildly elevated. EKG reviewed by myself and compared to previous on August [id number] shows sinus rhythm with a regular rate. ST segments are congruent. Not suggestive of ACS. Blood work sent. Patient was given IV morphine for pain. Chest x-ray reviewed by myself shows no acute pathology. Troponins negative. Otherwise blood work is unremarkable. Urine drug screen shows positive for cocaine. We will give the patient IV benzodiazepines. We will admit the patient to the hospital. Currently the patient is pending a D-dimer test. I spoke with Dr. Norman who accepts the patient for admission. I spoke with her about 7:20 AM. She accepts the patient for admission. We will get a bed for the patient. She will follow-up on the d-dimer and ordered the reflexes CT angiogram if necessary. The patient was then admitted for further treatment and care. Review of Systems Review of Systems SEE ABOVE. Current Medications Current Medications Current Medications Medications (Trade) Dose Ordered Sig/Quinton Start Time Stop Time Status Last Admin Dose Admin Aspirin (Children'S Aspirin) 324 mg 1X ONCE 01/13/19 07:15 01/13/19 07:16 DC Lorazepam (Ativan) 1 mg 1X ONCE 01/13/19 07:30 01/13/19 07:31 Morphine Sulfate (Morphine Sulfate) 2 mg PRN Q1HR PRN 01/13/19 06:45 01/13/19 07:01 2 MG Allergies Allergies Allergies Coded Allergies Type Severity Reaction Last Updated Verified Penicillins Allergy Intermediate 01/02/14 Yes Physical Exam Physical Exam SEE ABOVE Constitutional: Well developed, well nourished, no acute distress, non-toxic appearance. HENT: Normocephalic, atraumatic, bilateral external ears normal, oropharynx moist, no oral exudates, nose normal. [] Eyes: PERRLA, EOMI, conjunctiva normal, no discharge. Neck: Normal range of motion, no tenderness, supple, no stridor. [] Cardiovascular:Heart rate regular rhythm, no murmur Lungs & Thorax: Bilateral breath sounds clear to auscultation [] Abdomen: Bowel sounds normal, soft, no tenderness, no masses, no pulsatile masses. [] Skin: Warm, dry, no erythema, no rash. Back: No tenderness, no CVA tenderness. [] Extremities: No tenderness, no cyanosis, no clubbing, ROM intact, no edema. Neurologic: Alert and oriented X 3, normal motor function, normal sensory function, no focal deficits noted. [] Psychologic: Affect normal, judgement normal, mood normal. [] Current Patient Data Vital Signs Vital Signs Date Time Temp Pulse Resp B/P (MAP) Pulse Ox O2 Delivery O2 Flow Rate FiO2 01/13/19 07:01 22 01/13/19 05:50 97.6 82 163/105 (124) 96 Room Air 97.6 Lab Values Laboratory Tests Test 01/13/19 06:00 01/13/19 06:40 White Blood Count 5.0 x10^3/uL (4.0-11.0) Red Blood Count 5.03 x10^6/uL (3.50-5.40) Hemoglobin 14.5 g/dL (12.0-15.5) Hematocrit 43.4 % (36.0-47.0) Mean Corpuscular Volume 86 fL (79-100) Mean Corpuscular Hemoglobin 29 pg (25-35) Mean Corpuscular Hemoglobin Concent 33 g/dL (31-37) Red Cell Distribution Width 14.0 % (11.5-14.5) Platelet Count 366 x10^3/uL (140-400) Neutrophils (%) (Auto) 37 % (31-73) Lymphocytes (%) (Auto) 55 % (24-48) H Monocytes (%) (Auto) 5 % (0-9) Eosinophils (%) (Auto) 3 % (0-3) Basophils (%) (Auto) 1 % (0-3) Neutrophils # (Auto) 1.8 x10^3uL (1.8-7.7) Lymphocytes # (Auto) 2.7 x10^3/uL (1.0-4.8) Monocytes # (Auto) 0.2 x10^3/uL (0.0-1.1) Eosinophils # (Auto) 0.2 x10^3/uL (0.0-0.7) Basophils # (Auto) 0.0 x10^3/uL (0.0-0.2) Sodium Level 142 mmol/L (136-145) Potassium Level 3.7 mmol/L (3.5-5.1) Chloride Level 103 mmol/L (98-107) Carbon Dioxide Level 29 mmol/L (21-32) Anion Gap 10 (6-14) Blood Urea Nitrogen 16 mg/dL (7-20) Creatinine 1.1 mg/dL (0.6-1.0) H Estimated GFR (Cockcroft-Gault) 61.9 Glucose Level 180 mg/dL (70-99) H Calcium Level 9.3 mg/dL (8.5-10.1) Total Bilirubin 0.2 mg/dL (0.2-1.0) Direct Bilirubin 0.1 mg/dL (0.0-0.2) Aspartate Amino Transferase (AST) 14 U/L (15-37) L Alanine Aminotransferase (ALT) 16 U/L (14-59) Alkaline Phosphatase 79 U/L (46-116) Troponin I Quantitative < 0.017 ng/mL (0.000-0.055) DX-[id number]-[id number]-Type Natriuretic Peptide 256 pg/mL (0-124) H Total Protein 8.3 g/dL (6.4-8.2) H Albumin 3.1 g/dL (3.4-5.0) L Lipase 104 U/L (73-393) Urine Opiates Screen Neg (NEG) Urine Methadone Screen Neg (NEG) Urine Barbiturates Neg (NEG) Urine Phencyclidine Screen Neg (NEG) Urine Amphetamine/Methamphetamine Neg (NEG) Urine Benzodiazepines Screen Neg (NEG) Urine Cocaine Screen Pos (NEG) Urine Cannabinoids Screen Pos (NEG) Urine Ethyl Alcohol Neg (NEG) Laboratory Tests 01/13/19 06:00 Laboratory Tests 01/13/19 06:00 EKG EKG [] Radiology/Procedures Radiology/Procedures [] Course & Med Decision Making Course & Med Decision Making Pertinent Labs and Imaging studies reviewed. (See chart for details) [] Dragon Disclaimer Dragon Disclaimer This electronic medical record was generated, in whole or in part, using a voice recognition dictation system. Departure Departure Impression: Primary Impression: Chest pain Disposition: ADMITTED INPATIENT Admitting Physician: Yazmin Norman Condition: STABLE Referrals: YAZMIN NORMAN MD (PCP) YENIFER EAGLE MD Jan 13, 2019 06:17
[2019-01-13 06:19] LABS: BASO % 1 % (0-3); EOS # 0.2 x10^3/uL (0.0-0.7); EOS % 3 % (0-3); HEMATOCRIT 43.4 % (36.0-47.0); HEMOGLOBIN 14.5 g/dL (12.0-15.5); LYMPH # 2.7 x10^3/uL (1.0-4.8); LYMPH % 55 % (24-48); MEAN CORPUSCULAR HEMOGLOBIN 29 pg (25-35); MEAN CORPUSCULAR HGB CONC 33 g/dL (31-37); MEAN CORPUSCULAR VOLUME 86 fL (79-100); MONO # 0.2 x10^3/uL (0.0-1.1); MONO % 5 % (0-9); NEUT # 1.8 x10^3uL (1.8-7.7); NEUT % 37 % (31-73); PLATELET COUNT 366 x10^3/uL (140-400); RED BLOOD COUNT 5.03 x10^6/uL (3.50-5.40)
--- NOTE | 2019-01-13 06:23 | EKG ---
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
[2019-01-13 06:26] LABS: CALCIUM 9.3 mg/dL (8.5-10.1); CREATININE 1.1 mg/dL (0.6-1.0); GFR 61.9; POTASSIUM 3.7 mmol/L (3.5-5.1)
[2019-01-13 06:27] LABS: PROTHROMBIN TIME PATIENT 13.2 SEC (11.7-14.0)
[2019-01-13 06:33] LABS: ALBUMIN 3.1 g/dL (3.4-5.0); DIRECT BILIRUBIN 0.1 mg/dL (0.0-0.2); TOTAL BILIRUBIN 0.2 mg/dL (0.2-1.0); TOTAL PROTEIN 8.3 g/dL (6.4-8.2)
[2019-01-13] MEDS ORDERED: MORPHINE SULFATE 2 MG/ML VIAL. IV PRN (06:45)
[2019-01-13 07:05] LABS: BARBITURATES NEG (NEG); BENZODIAZEPINES NEG (NEG); CANNABINOIDS POS (NEG); COCAINE POS (NEG); METHADONE NEG (NEG); OPIATES NEG (NEG); PHENCYCLIDINE NEG (NEG)
[2019-01-13 07:11] LABS: AMPHETAMINE/METHAMPHETAMINE NEG (NEG)
[2019-01-13] MEDS ORDERED: ASPIRIN CHEWABLE 81 MG TABLET. PO ONE (07:15)
[2019-01-13] MEDS ORDERED: IV NORMAL SALINE 1000ML BAG 1,000 ML IV SCH (07:27)
--- NOTE | 2019-01-13 07:35 | RAD ---
Portable chest, 01/13/2019: HISTORY: Chest pain Comparison is made to a study from 08/31/2017. The heart size and pulmonary vascularity are normal. An opacity projected over the right hilum on the previous study has resolved. There is a small opacity now evident in the left mid lung, partially obscured by overlying EKG leads. No pleural fluid is evident. There is a mild thoracic scoliosis with moderate multilevel degenerative change. IMPRESSION: Small focal infiltrate or nodule in the left midlung. Radiographic follow-up is suggested. Electronically signed by: Aleksandar Bain MD (01/13/2019 7:32 AM) [facility]
[2019-01-13 08:00] VITALS: BP 137/88
[2019-01-13] MEDS ORDERED: ACETAMINOPHEN 500 MG TABLET PO PRN (09:15)
[2019-01-13] MEDS ORDERED: IBUPROFEN 400 MG TABLET. PO PRN (09:15)
--- NOTE | 2019-01-13 09:18 | PDOC ---
PROGRESS NOTES Subjective Subjective Patient sleepy after receiving Ativan. Denies chest pain at this time. Objective Objective Vital Signs Date Time Temp Pulse Resp B/P (MAP) Pulse Ox O2 Delivery O2 Flow Rate FiO2 01/13/19 08:00 98.1 89 20 137/88 (104) 97 Room Air 98.1 Physical Exam Abdomen: Normal bowel sounds, Soft, No tenderness Heart: Regular rate, Other (TTP anterior chest wall) Extremities: No edema General: No acute distress (sleepy, easily aroused but quickly falls back to sleep) Lungs: Other (few coarse BS throughout, cough productive of white sputum) Assessment Assessment Problems Medical Problems: (1) Chest pain Status: Acute Plan Plan of Care 1. Chest pain - patient without hx of CAD. Pain reproducible on chest wall palpation. Has had similar episodes like this in the past. First troponin negative. D-dimer elevated so CT chest ordered, await results of this and next troponin. 2. cocaine abuse - patient has history of this and UDS is positive. Avoid narcotics while hospitalized. 3. CKD - mild, appears at baseline with creatinine only mildly elevated. 4. Hx possible SLE - patient apparently has not seen Rheumatology for this recently. Our office referred her to Rheumatology last summer but she reports she was not seen there. 5. lung nodule - seen on CXR. Await CT chest results. Comment Review of Relevant I have reviewed the following items kelli (where applicable) has been applied. Labs Laboratory Tests Test 01/13/19 06:00 01/13/19 06:40 White Blood Count 5.0 x10^3/uL (4.0-11.0) Red Blood Count 5.03 x10^6/uL (3.50-5.40) Hemoglobin 14.5 g/dL (12.0-15.5) Hematocrit 43.4 % (36.0-47.0) Mean Corpuscular Volume 86 fL (79-100) Mean Corpuscular Hemoglobin 29 pg (25-35) Mean Corpuscular Hemoglobin Concent 33 g/dL (31-37) Red Cell Distribution Width 14.0 % (11.5-14.5) Platelet Count 366 x10^3/uL (140-400) Neutrophils (%) (Auto) 37 % (31-73) Lymphocytes (%) (Auto) 55 % (24-48) Monocytes (%) (Auto) 5 % (0-9) Eosinophils (%) (Auto) 3 % (0-3) Basophils (%) (Auto) 1 % (0-3) Neutrophils # (Auto) 1.8 x10^3uL (1.8-7.7) Lymphocytes # (Auto) 2.7 x10^3/uL (1.0-4.8) Monocytes # (Auto) 0.2 x10^3/uL (0.0-1.1) Eosinophils # (Auto) 0.2 x10^3/uL (0.0-0.7) Basophils # (Auto) 0.0 x10^3/uL (0.0-0.2) Prothrombin Time 13.2 SEC (11.7-14.0) Prothromb Time International Ratio 1.0 (0.8-1.1) Activated Partial Thromboplast Time 41 SEC (24-38) D-Dimer (Kiya) 3.32 ug/mlFEU (0.00-0.50) Sodium Level 142 mmol/L (136-145) Potassium Level 3.7 mmol/L (3.5-5.1) Chloride Level 103 mmol/L (98-107) Carbon Dioxide Level 29 mmol/L (21-32) Anion Gap 10 (6-14) Blood Urea Nitrogen 16 mg/dL (7-20) Creatinine 1.1 mg/dL (0.6-1.0) Estimated GFR (Cockcroft-Gault) 61.9 Glucose Level 180 mg/dL (70-99) Calcium Level 9.3 mg/dL (8.5-10.1) Total Bilirubin 0.2 mg/dL (0.2-1.0) Direct Bilirubin 0.1 mg/dL (0.0-0.2) Aspartate Amino Transf (AST/SGOT) 14 U/L (15-37) Alanine Aminotransferase (ALT/SGPT) 16 U/L (14-59) Alkaline Phosphatase 79 U/L (46-116) Troponin I Quantitative < 0.017 ng/mL (0.000-0.055) HK-Amv-D-Type Natriuretic Peptide 256 pg/mL (0-124) Total Protein 8.3 g/dL (6.4-8.2) Albumin 3.1 g/dL (3.4-5.0) Lipase 104 U/L (73-393) Urine Opiates Screen Neg (NEG) Urine Methadone Screen Neg (NEG) Urine Barbiturates Neg (NEG) Urine Phencyclidine Screen Neg (NEG) Urine Amphetamine/Methamphetamine Neg (NEG) Urine Benzodiazepines Screen Neg (NEG) Urine Cocaine Screen Pos (NEG) Urine Cannabinoids Screen Pos (NEG) Urine Ethyl Alcohol Neg (NEG) Laboratory Tests Test 01/13/19 06:00 01/13/19 06:40 White Blood Count 5.0 x10^3/uL (4.0-11.0) Red Blood Count 5.03 x10^6/uL (3.50-5.40) Hemoglobin 14.5 g/dL (12.0-15.5) Hematocrit 43.4 % (36.0-47.0) Mean Corpuscular Volume 86 fL (79-100) Mean Corpuscular Hemoglobin 29 pg (25-35) Mean Corpuscular Hemoglobin Concent 33 g/dL (31-37) Red Cell Distribution Width 14.0 % (11.5-14.5) Platelet Count 366 x10^3/uL (140-400) Neutrophils (%) (Auto) 37 % (31-73) Lymphocytes (%) (Auto) 55 % (24-48) Monocytes (%) (Auto) 5 % (0-9) Eosinophils (%) (Auto) 3 % (0-3) Basophils (%) (Auto) 1 % (0-3) Neutrophils # (Auto) 1.8 x10^3uL (1.8-7.7) Lymphocytes # (Auto) 2.7 x10^3/uL (1.0-4.8) Monocytes # (Auto) 0.2 x10^3/uL (0.0-1.1) Eosinophils # (Auto) 0.2 x10^3/uL (0.0-0.7) Basophils # (Auto) 0.0 x10^3/uL (0.0-0.2) Prothrombin Time 13.2 SEC (11.7-14.0) Prothromb Time International Ratio 1.0 (0.8-1.1) Activated Partial Thromboplast Time 41 SEC (24-38) D-Dimer (Kiya) 3.32 ug/mlFEU (0.00-0.50) Sodium Level 142 mmol/L (136-145) Potassium Level 3.7 mmol/L (3.5-5.1) Chloride Level 103 mmol/L (98-107) Carbon Dioxide Level 29 mmol/L (21-32) Anion Gap 10 (6-14) Blood Urea Nitrogen 16 mg/dL (7-20) Creatinine 1.1 mg/dL (0.6-1.0) Estimated GFR (Cockcroft-Gault) 61.9 Glucose Level 180 mg/dL (70-99) Calcium Level 9.3 mg/dL (8.5-10.1) Total Bilirubin 0.2 mg/dL (0.2-1.0) Direct Bilirubin 0.1 mg/dL (0.0-0.2) Aspartate Amino Transf (AST/SGOT) 14 U/L (15-37) Alanine Aminotransferase (ALT/SGPT) 16 U/L (14-59) Alkaline Phosphatase 79 U/L (46-116) Troponin I Quantitative < 0.017 ng/mL (0.000-0.055) UH-Zfd-F-Type Natriuretic Peptide 256 pg/mL (0-124) Total Protein 8.3 g/dL (6.4-8.2) Albumin 3.1 g/dL (3.4-5.0) Lipase 104 U/L (73-393) Urine Opiates Screen Neg (NEG) Urine Methadone Screen Neg (NEG) Urine Barbiturates Neg (NEG) Urine Phencyclidine Screen Neg (NEG) Urine Amphetamine/Methamphetamine Neg (NEG) Urine Benzodiazepines Screen Neg (NEG) Urine Cocaine Screen Pos (NEG) Urine Cannabinoids Screen Pos (NEG) Urine Ethyl Alcohol Neg (NEG) Medications Current Medications Morphine Sulfate (Morphine Sulfate) 2 mg PRN Q1HR PRN IV SEVERE PAIN Last administered on 01/13/19at 07:01; Start 01/13/19 at 06:45; Stop 01/13/19 at 09:11 ; Status DC Aspirin (Children'S Aspirin) 324 mg 1X ONCE PO Last administered on 01/13/19at 07:50; Start 01/13/19 at 07:15; Stop 01/13/19 at 07:16; Status DC Lorazepam (Ativan) 1 mg 1X ONCE IV Last administered on 01/13/19at 07:51; Start 01/13/19 at 07:30; Stop 01/13/19 at 07:31; Status DC Sodium Chloride 1,000 ml @ 100 mls/hr Q10H IV ; Start 01/13/19 at 07:27; Stop 01/13/19 at 11:26 Acetaminophen (Tylenol) 1,000 mg PRN Q6HRS PRN PO pain; Start 01/13/19 at 09:15 ; Status UNV Ibuprofen (Motrin) 400 mg PRN Q6HRS PRN PO INFLAMMATION; Start 01/13/19 at 09: 15; Status UNV Active Scripts Active [place] 5-325 Tablet (Acetaminophen/Hydrocodone Bitart) 1 Each Tablet 1 Tab PO PRN Q6HRS PRN Silvadene (Silver Sulfadiazine) 20 Gm Cream..g. 1 Seng TP DAILY apply 1 to 2 times daily to wound Levaquin (Levofloxacin) 500 Mg Tablet 1 Tab PO DAILY Reported Augmentin 875-125 Tablet (Amoxicillin/Potassium Clav) 1 Each Tablet 1 Tab PO BID Vitamin D2 (Ergocalciferol (Vitamin D2)) 50,000 Unit Capsule 50,000 Units PO QM Vitals/I & O Vital Sign - Last 24 Hours 01/13/19 01/13/19 01/13/19 01/13/19 05:50 06:29 06:59 07:01 Temp 97.6 97.6 Pulse 82 86 82 Resp 18 22 B/P (MAP) 163/105 (124) 159/93 (115) 159/107 (124) Pulse Ox 96 96 99 O2 Delivery Room Air Room Air Room Air 01/13/19 01/13/19 07:28 08:00 Temp 98.1 98.1 Pulse 82 89 Resp 20 B/P (MAP) 165/110 (128) 137/88 (104) Pulse Ox 100 97 O2 Delivery Room Air Room Air ISABEL WALLER MD Jan 13, 2019 09:17
[2019-01-13] MEDS ORDERED: IOHEXOL 350 MG/ML 100 ML VIAL. IV ONE (09:45)
[2019-01-13] MEDS ORDERED: CONTRAST GIVEN. MC PRN (09:45)
--- NOTE | 2019-01-13 10:07 | NUR ---
The patient, COLTEN HILL, 58 y/o, F admitted by ISABEL WALLER MD, was given written information regarding hospital policies, unit procedures and contact persons. Patient drowsy and falling asleep while going over admission questions. Patient had some garbled speech. Family member at bedside and helped answer some admission questions. Patient unsure of home medication list. Will continue to closely monitor. dr. Bond on unit and said no need to hang IV fluids
[2019-01-13 10:39] VITALS: BP 111/68
--- NOTE | 2019-01-13 11:16 | RAD ---
Examination: CT ANGIOGRAPHY CHEST History: chest pain elev d- dimer omni 350 100ml Comparison/Correlation: None Findings: Axial images of chest were obtained following IV contrast according to pulmonary arteriography protocol. Sagittal and coronal reformatted images provided. MIP images provided. Opacification of the pulmonary arterial vasculature is unremarkable. No thromboembolic disease identified. Thoracic aorta is unremarkable. Diffuse emphysematous involvement along fraser noted. Tracheal bronchial tree is unremarkable. Linear atelectasis or infiltrate is noted involving the left upper lobe laterally. Possibly of a nodule measuring up to 0.8 cm diameter is raised on axial image 58 along the posterior aspect of this process. No enlarged thoracic lymph nodes. Partially visualized upper abdomen is unremarkable. Numerous small lucencies involving the visualized spine is similar compared to the previous exam. Impression: No pulmonary arterial thromboembolic disease. Linear atelectasis or infiltrate involving the left upper lobe extends to the pleura. Possibly of a nodule associated with this process is raised. Interval follow-up to assess resolution is recommended. Mild diffuse emphysematous of centrilobular distribution involvement of the lung fraser. PQRS Compliance Statement: One or more of the following individualized dose reduction techniques were utilized for this examination: 1. Automated exposure control 2. Adjustment of the mA and/or kV according to patient size 3. Use of iterative reconstruction technique Electronically signed by: Chetan Page MD (01/13/2019 11:13 AM) [id number]
--- NOTE | 2019-01-13 12:29 | NUR ---
SS following for discharge planning. SS reviewed pt chart. Pt is from home and is currently on room air. Pt's RN contacted and requested a PAT referral for substance use. SS contacted the PAT team and made referral. Blake from the PAT team contacted and reported that he was coming to visit with pt.
--- NOTE | 2019-01-13 14:38 | NUR ---
SS following up with discharge planning. Blake from PAT team contacted SS and reported that pt will follow up with the [facility] for outpatient services at discharge.
[2019-01-13 15:19] VITALS: BP 140/89
--- NOTE | 2019-01-13 18:05 | NUR ---
Discharge: Teaching verbal and written. Patient not accepting of education. Patient raised her voice and said "you don't know my body... you are pulling the cocaine card aaron kong... My doctor never even came to see me... she sent you in here to do her mouth work... " patient agreeable to discharge but refused to sign discharge signature page. IV removed without complications, catheter tip in-tact. All belongings with patient. Son at bedside.
--- NOTE | 2019-01-13 18:34 | SSS ---
ADMIT DATE: 01/13/2019 CHIEF COMPLAINT: Chest pain. HISTORY OF PRESENT ILLNESS: The patient is a 58-year-old female who presented to the Emergency Department with the above complaint. She reported the onset of sharp shooting pain on the left side of the chest on the evening prior to admission. The pain had apparently persisted and she came to the Emergency Department. Initial evaluation there showed a normal troponin and an EKG without acute ischemic change. The patient's urine drug screen was positive for cocaine. Treatment was started and she was admitted for further care. HOSPITAL COURSE: The patient was placed on telemetry where she remained in sinus rhythm. Her pain was treated with several doses of IV pain medication and seemed to improve. A second troponin was also within normal limits. The patient's D-dimer was elevated, so a CTA of the chest was done. This showed no evidence of pulmonary emboli. There is a linear atelectasis seen in the left upper lobe with possibly a very small nodule associated with this. The patient's pain improved after treatment with IV pain medication. The patient was tolerating a regular diet without problems. She was seen by the PAT team due to her ongoing drug abuse. She apparently expressed some interest in returning to [facility] for ongoing mental health issues and this was arranged for her. She is of course advised to discontinue smoking and drug use. She was discharged to home. PAST MEDICAL HISTORY: Cocaine abuse, previous diagnosis of systemic lupus erythematosus. PAST SURGICAL HISTORY: . ALLERGIES: THE PATIENT IS ALLERGIC TO PENICILLIN. HOME MEDICATIONS: None. SOCIAL HISTORY: The patient is single. She is not employed. She continues to smoke cigarettes. She denies recent drug use. REVIEW OF SYSTEMS: This is difficult to obtain as the patient is very sleepy after receiving one dose of Ativan. PHYSICAL EXAMINATION: GENERAL: The patient is very sleepy, but is easily aroused. She appears oriented when awake and resting comfortably in bed in no acute distress. HEENT: PERRL, EOMI, sclerae clear. Oropharynx: Mucous membranes moist. NECK: Supple, without lymphadenopathy. CHEST: Breath sounds mildly decreased throughout. Few coarse breath sounds. The patient has a cough productive of white sputum. There is moderate tenderness to palpation over the left anterior chest wall. CARDIOVASCULAR: Regular rhythm without murmur. ABDOMEN: Soft, nontender, normoactive bowel sounds are present. EXTREMITIES: Without edema. FINAL DIAGNOSES: 1. Musculoskeletal chest pain. 2. Cocaine abuse. 3. Chronic kidney disease. 4. Possible systemic lupus erythematosus. 5. Lung nodule, left upper lobe. DISCHARGE MEDICATIONS: The patient is advised soaz-oxi-ryllrri pain medicine as needed. Follow up with Dr. Norman within 2 weeks. ISABEL NORMAN MD DR: BIB/diana JOB#: [id number] / [id number] [facility]
--- NOTE | 2019-01-13 18:42 | NUR ---
Nursing: Patient requesting Tylenol and ibuprofen. I explained it was not time yet. Patient became argumentative and said she knows its time and dosent like my attitude.
--- NOTE | 2019-01-13 18:55 | NUR ---
Nursing: Patient ambulated off of unit accompanied by son and Myesha RN
== END 2019-01-13 18:57 | disposition home or self-care (01) | DRG 313 ==
LOC: ER 05:48 → 2 SOUTH 07:20
PROVIDERS: ADMIT Family Medicine; ATTEND Family Medicine
DX: R07.89 Other chest pain (principal); J98.11 Atelectasis; M19.90 Unspecified osteoarthritis, unspecified site; M32.9 Systemic lupus erythematosus, unspecified; F12.90 Cannabis use, unspecified, uncomplicated; F17.210 Nicotine dependence, cigarettes, uncomplicated; F14.10 Cocaine abuse, uncomplicated; I12.9 Hypertensive chronic kidney disease with stage 1 through stage 4 chronic kidney disease, or unspecified chronic kidney disease; N18.9 Chronic kidney disease, unspecified; R91.1 Solitary pulmonary nodule; Z88.0 Allergy status to penicillin
CPT/HCPCS: 36415; 71045; 71275; 80048; 80076; 80307; 83690; 83880; 84484; 85025; 85379; 85610; 85730; 93005; 96374; 96375; J2060; J2270; Q9967; 99285-25

== ENCOUNTER 2019-02-23 14:25 | Emergency (ER) | payer MEDICAID, OTHER, SELFPAY ==
[~2019-02-23] VITALS: Ht 177.8 cm; Wt 75.3 kg
[2019-02-23 15:12] VITALS: BP 146/100
[2019-02-23] MEDS ORDERED: SMZ/TMP 800/160MG TABLET. PO ONE (15:45)
[2019-02-23] MEDS ORDERED: SULF1TAB24 PO (15:46)
--- NOTE | 2019-02-23 15:46 | PHYS DOC ---
Past Medical History Past Medical History: Diabetes-Type II Additional Past Medical Histor: lupus Past Surgical History: Alcohol Use: None Drug Use: Marijuana Adult General Chief Complaint Chief Complaint: INSECT BITE HPI HPI Patient is a 58 year old female who presents with left lower leg" spider bite". Patient reports she has had what she thinks is a spider bite to her leg for the past week. Reports she does not really know what caused it, just noticed it appearing, has noticed some pus and some pain from it. Reports she has tried some hydrocortisone, Neosporin, and another topical product without any improvement. Reports she has had a previous injury to that leg, and that has caused her tenderness around it. Denies similar problems in the past. Review of Systems Review of Systems Constitutional: Denies fever or chills [] Eyes: Denies change in visual acuity, redness, or eye pain [] HENT: Denies nasal congestion or sore throat [] Respiratory: Denies cough or shortness of breath [] Cardiovascular: No additional information not addressed in HPI [] GI: Denies abdominal pain, nausea, vomiting, bloody stools or diarrhea [] : Denies dysuria or hematuria [] Musculoskeletal: Denies back pain or joint pain [] Integument: Denies rash . Complains of lesion to left lower leg. With erythema and tenderness. [] Neurologic: Denies headache, focal weakness or sensory changes [] Endocrine: Denies polyuria or polydipsia [] All other systems were reviewed and found to be within normal limits, except as documented in this note. Allergies Allergies Allergies Coded Allergies Type Severity Reaction Last Updated Verified Penicillins Allergy Intermediate 01/02/14 Yes Physical Exam Physical Exam Constitutional: Well developed, well nourished, no acute distress, non-toxic appearance. [] HENT: Normocephalic, atraumatic, bilateral external ears normal, oropharynx moist, no oral exudates, nose normal. [] Eyes: PERRLA, EOMI, conjunctiva normal, no discharge. [] Neck: Normal range of motion, no tenderness, supple, no stridor. [] Cardiovascular:Heart rate regular rhythm, no murmur [] Lungs & Thorax: Bilateral breath sounds clear to auscultation [] Abdomen: Bowel sounds normal, soft, no tenderness, no masses, no pulsatile masses. [] Skin: Warm, dry, no rash. Patient noted to have approximately 1 cm diameter lesion to anterior tibia mid left lower leg. Noted a small amount of bloody purulence from lesion. With small amount of dried blood below lesion. Noted minor erythematous area surrounding lesion. No abscess or mass noted. [] Back: No tenderness, no CVA tenderness. [] Extremities: No tenderness, no cyanosis, no clubbing, ROM intact, no edema. [] Neurologic: Alert and oriented X 3, normal motor function, normal sensory function, no focal deficits noted. [] Psychologic: Affect normal, judgement normal, mood normal. [] Current Patient Data Vital Signs Vital Signs Date Time Temp Pulse Resp B/P (MAP) Pulse Ox O2 Delivery O2 Flow Rate FiO2 02/23/19 15:12 97.9 64 22 146/100 (115) 100 Room Air 97.9 EKG EKG [] Radiology/Procedures Radiology/Procedures [] Course & Med Decision Making Course & Med Decision Making Pertinent Labs and Imaging studies reviewed. (See chart for details) [Discussed importance of using antibiotic to take care of infection. Discussed importance of follow-up with primary care provider. Discussed wound care. Disc ussed actual cause being unknown but there does appear to be an infection in the skin and we will treat that. Patient agreeable with plan of care.] Dragon Disclaimer Dragon Disclaimer This electronic medical record was generated, in whole or in part, using a voice recognition dictation system. Departure Departure Impression: Primary Impression: Cellulitis Additional Impression: Open wound of left lower leg Disposition: 01 HOME, SELF-CARE Condition: GOOD Referrals: ISABEL WALLER MD (PCP) Patient Instructions: Cellulitis Additional Instructions: As we discussed continue to take the antibiotic as prescribed until it is gone even if your wound improves. Keep the area clean and dry, put a dressing on as needed. Follow-up with your primary care provider if they've any other concerns over this lesion. He did take Tylenol or ibuprofen for discomfort. A lot of the discomfort will improve once the antibiotic takes the infection out of your leg. Scripts Sulfamethoxazole/Trimethoprim (BACTRIM DS TABLET) 1 Each Tablet 1 TAB PO BID, #14 TAB Prov: AGNIESZKA ABDUL APRN 02/23/19 Problem Qualifiers AGNIESZKA ABDUL APRN February 23, 2019 15:46
== END 2019-02-23 15:56 | disposition home or self-care (01) ==
LOC: ER 14:25
DX: S80.862A Insect bite (nonvenomous), left lower leg, initial encounter (principal); L03.116 Cellulitis of left lower limb; E11.9 Type 2 diabetes mellitus without complications; Z88.0 Allergy status to penicillin; W57.XXXA Bitten or stung by nonvenomous insect and other nonvenomous arthropods, initial encounter; Y93.89 Activity, other specified; Y92.89 Other specified places as the place of occurrence of the external cause; Y99.8 Other external cause status
CPT/HCPCS: 99283

== ENCOUNTER 2020-12-13 04:31 | Inpatient (IN) | payer MEDICAID ==
[~2020-12-13] VITALS: Ht 175.3 cm; Wt 78.1 kg
[~2020-12-13 04:31] MED LIST changes: +CEPH500C PO; -CLIN150C14 PO; +CLIN150C15 PO; -CLIN300C8 PO; +CLIN300C9 PO; -OMEP20CA10 PO; +OMEP20CA16 PO; +ONDA4TAB7 PO; +SULF1TAB24 PO
--- NOTE | 2020-12-13 06:10 | EKG ---
[facility] [address] [place] [address] Test Date: 2020-12-13 Test Time: 06:01:23 Pat Name: COLTEN HILL Department: Room: Gender: F [employer] Bottom Maker: : 1960 Requested By: REYNALDO RUCKER Order Number: [id number] Reading MD: Measurements Intervals [place] Rate: 57 P: 78 DE: 164 QRS: -58 QRSD: 90 T: 47 QT: 396 QTc: 388 Interpretive Statements SINUS RHYTHM LEFT ATRIAL ABNORMALITY ABNORMAL LEFT AXIS DEVIATION LEFT ANTERIOR FASCICULAR BLOCK QRS(T) CONTOUR ABNORMALITY CONSISTENT WITH ANTEROSEPTAL INFARCT AGE UNDETERMINED ABNORMAL ECG RI6.02 No previous ECG available for comparison
[2020-12-13 06:33] LABS: CALCIUM 9.7 mg/dL (8.5-10.1); CREATININE 1.3 mg/dL (0.6-1.0); GFR 50.7; POTASSIUM 3.2 mmol/L (3.5-5.1)
[2020-12-13 06:38] LABS: ALBUMIN 3.5 g/dL (3.4-5.0); ALBUMIN/GLOBULIN RATIO 0.7 (1.0-1.7); TOTAL BILIRUBIN 0.3 mg/dL (0.2-1.0); TOTAL PROTEIN 8.6 g/dL (6.4-8.2)
[2020-12-13 06:39] LABS: BILIRUBIN,URINE NEGATIVE (NEG); CLARITY,URINE CLEAR; COLOR,URINE YELLOW; NITRITE,URINE NEGATIVE (NEG); PH,URINE 7.5 (<5.0-8.0); PROTEIN,URINE 30 mg/dL (NEG-TRACE); UROBILINOGEN,URINE 0.2 mg/dL (0.2 mg/dL)
--- NOTE | 2020-12-13 06:39 | PHYS DOC ---
Past Medical History Past Medical History: Diabetes-Type II Additional Past Medical Histor: lupus Past Surgical History: Smoking Status: Current Every Day Smoker Alcohol Use: Occasionally Drug Use: Marijuana General Adult EDM: Chief Complaint: ABDOMINAL PAIN HPI: HPI: This is a 60-year-old female presented emerge department today with abdominal pain which is general for the past 2 to 3 days. It is associated with nausea and vomiting. Her vomitus is nonbilious and nonbloody. She was able to have a bowel movement here in the emergency department. Her pain is sharp shooting intermittent. It is mildly alleviated with Tums. She also complains of shortne ss of breath with body aches fatigue. She had a loss of taste and smell 3 days ago as well. Review of systems negative for chest pain headache nuchal rigidity. Positive for abdominal pain shortness of breath with nausea and vomiting. Negative for rash. All other review of systems negative. ED course: 60-year-old female presenting with abdominal pain with shortness of breath and loss of taste and smell. Patient was placed as a PUI. COVID-19 tested along with blood work and chest x-ray and CT abdomen pelvis. On arrival patient is afebrile. Blood pressure was elevated at 170/108. Pulse within normal limits. Labs show normal white blood cell count. Hemoglobin within normal limits. Chemistry panel shows a mildly low potassium of 3.2. Creatinine of 1.3 (1.1-1.3) which is baseline for the patient. Negative test. Urine analysis shows small leuk esterase with a few white cells. No bacteria. Chest x-ray shows subtle parenchymal opacity in the right lung base which may represent a developing pneumonia. CT abdomen pelvis shows cholelithiasis with pericholecystic fluid and gallbladder wall thickening suggestive of chol ecystitis. Patient was given IV antibiotics. We will admit the patient to the hospital. I spoke with the hospitalist who accepts patient for admission. I also spoke with Dr. Montero our surgeon who will consult. Basic bridge orders placed. Heart Score: C/O Chest Pain: N/A Risk Factors: Risk Factors: DM, Current or recent (<one month) smoker, HTN, HLP, family history of CAD, obesity. Risk Scores: Score 0 - 3: 2.5% MACE over next 6 weeks - Discharge Home Score 4 - 6: 20.3% MACE over next 6 weeks - Admit for Clinical Observation Score 7 - 10: 72.7% MACE over next 6 weeks - Early Invasive Strategies Allergies: Allergies: Allergies Coded Allergies Type Severity Reaction Last Updated Verified Penicillins Allergy Intermediate 01/02/14 Yes Physical Exam: PE: Constitutional: Well developed, well nourished, no acute distress, non-toxic appearance. HENT: Normocephalic, atraumatic, bilateral external ears normal, oropharynx moist, no oral exudates, nose normal. [] Eyes: PERRLA, EOMI, conjunctiva normal, no discharge. [] Neck: Normal range of motion, no tenderness, supple, no stridor. [] Cardiovascular:Heart rate regular rhythm, no murmur Lungs & Thorax: Bilateral breath sounds clear to auscultation [] Abdomen: Bowel sounds normal, soft, mild tenderness to palpation generally without focus. Negative McBurney's point. Negative Bonilla sign. no masses, no pulsatile masses. [] Skin: Warm, dry, no erythema, no rash. [] Back: No tenderness, no CVA tenderness. [] Extremities: No tenderness, no cyanosis, no clubbing, ROM intact, no edema. Neurologic: Alert and oriented X 3, normal motor function, normal sensory f unction, no focal deficits noted. [] Psychologic: Affect normal, judgement normal, mood normal. Current Patient Data: Vital Signs: Vital Signs Date Time Temp Pulse Resp B/P (MAP) Pulse Ox O2 Delivery O2 Flow Rate FiO2 12/13/20 05:22 97.9 76 20 172/108 (129) 98 Room Air 97.9 EKG: EKG: [] Radiology/Procedures: Radiology/Procedures: [] Course & Med Decision Making: Course & Med Decision Making Pertinent Labs and Imaging studies reviewed. (See chart for details) [] Dragon Disclaimer: DragVycon Disclaimer: This electronic medical record was generated, in whole or in part, using a voice recognition dictation system. Departure Departure Impression: Primary Impression: Cholecystitis Disposition: ADMITTED INPT THIS HOSP Admitting Physician: ORTIZ Condition: STABLE Referrals: NO PCP (PCP) YENIFER EAGLE MD Dec 13, 2020 06:39
[2020-12-13] MEDS ORDERED: ONDANSETRON PF 4 MG/2 ML VIAL. IVP ONE (06:45)
[2020-12-13] MEDS ORDERED: IV NORMAL SALINE 1000ML BAG 1,000 ML IV ONE (06:45)
[2020-12-13 06:51] LABS: BASO % 1 % (0-3); EOS # 0.1 x10^3/uL (0.0-0.7); EOS % 3 % (0-3); HEMATOCRIT 45.4 % (36.0-47.0); HEMOGLOBIN 15.3 g/dL (12.0-15.5); LYMPH # 2.5 x10^3/uL (1.0-4.8); LYMPH % 56 % (24-48); MEAN CORPUSCULAR HEMOGLOBIN 30 pg (25-35); MEAN CORPUSCULAR HGB CONC 34 g/dL (31-37); MEAN CORPUSCULAR VOLUME 88 fL (79-100); MONO # 0.2 x10^3/uL (0.0-1.1); MONO % 5 % (0-9); NEUT # 1.5 x10^3/uL (1.8-7.7); NEUT % 34 % (31-73); PLATELET COUNT 245 x10^3/uL (140-400); RED BLOOD COUNT 5.16 x10^6/uL (3.50-5.40); RED CELL DISTRIBUTION WIDTH 13.6 % (11.5-14.5); WHITE BLOOD COUNT 4.4 x10^3/uL (4.0-11.0)
[2020-12-13 06:58] LABS: PREG TEST PT QUAL NEGATIVE (NEG)
[2020-12-13] MEDS ORDERED: CONTRAST GIVEN. MC PRN (07:00)
[2020-12-13] MEDS ORDERED: IOHEXOL 300 MG/ML 100ML VIAL. IV ONE (07:00)
[2020-12-13 07:18] LABS: BACTERIA,URINE 0 /HPF (0-FEW); RBC,URINE 0 /HPF (0-2)
--- NOTE | 2020-12-13 07:19 | RAD ---
Chest AP portable at 0639: Reason for examination: Short of breath. Comparison is made to previous study dated 01/13/2019. The heart size is normal. Mediastinum is unremarkable. Lung fraser show some subtle parenchymal opaci ty in the right lung base. This may represent a developing pneumonia. No acute bony abnormalities are seen. Impression: Subtle parenchymal opacity at the right lung base and developing pneumonia cannot be excluded. Electronically signed by: Manju Gray MD (12/13/2020 7:16 AM) ERIK
--- NOTE | 2020-12-13 07:45 | RAD ---
CT abdomen and pelvis with contrast. HISTORY: Abdominal pain, vomiting, history of lupus CT scan of the abdomen pelvis was done using 75 mL Omnipaque 300 contrast. Lung bases are clear. Ther e is no effusion. A liver lesion is not identified. Spleen is unremarkable. Adrenal glands are normal . Pancreas is normal. There is scarring and atrophy of the right kidney. There is no small bowel obst ruction. There is moderate stool in the colon. Appendix is normal. Uterus and ovaries are unremarkabl e. There is no free air or free fluid. There is spondylolisthesis at L4-5 with spinal stenosis. There is marked facet arthritis at L4-5. Gallbladder is distended with gallstones. There is mild pericholecystic fluid. The pattern suggests a cute cholecystitis. IMPRESSION: 1. Cholelithiasis with pericholecystic fluid and gallbladder wall thickening suggests cholecystitis. 2. Scarring and atrophy of the right kidney. 3. Spondylolisthesis L4-5 with spinal stenosis. PQRS Compliance Statement: One or more of the following individualized dose reduction techniques were utilized for this examinat ion: 1. Automated exposure control 2. Adjustment of the mA and/or kV according to patient size 3. Use of iterative reconstruction technique Electronically signed by: Colby Wing MD (12/13/2020 7:42 AM) [id number]
[2020-12-13] MEDS ORDERED: ONDANSETRON PF 4 MG/2 ML VIAL. IV PRN (08:00)
[2020-12-13] MEDS ORDERED: MORPHINE SULFATE 2 MG/ML VIAL. IV PRN (08:00)
[2020-12-13] MEDS ORDERED: CIPROFLOXACIN 400MG PREMIX 200 ML IV ONE (08:00)
[2020-12-13] MEDS ORDERED: IV NORMAL SALINE 1000ML BAG 1,000 ML IV SCH (08:00)
--- NOTE | 2020-12-13 08:09 | PDOC1 ---
History and Physical Date of Admission Date of Admission DATE: 12/13/20 TIME: 07:57 Identification/Chief Complaint Chief Complaint Abdominal pain Source Source: Patient History of Present Illness History of Present Illness Ms Ferrer is a 60yo F w/ PMHx DM2, ?lupus, smoker who presents to ED c/o abdominal pain which is general for the past 2 to 3 days. It is associated with nausea and vomiting. Her vomitus is nonbilious and nonbloody. She was able to have a bowel movement here in the emergency department. Her pain is sharp shooting intermittent. It is mildly alleviated with Tums. She also complains of shortness of breath with body aches fatigue. She had a loss of taste and smell 3 days ago as well. Labs with WBC 4.4, Hb 15.3, platelets 245, Na 140, K 3.2 BUn 22 Cr 1.3, Trop 0 Review of systems negative for chest pain headache nuchal rigidity. Positive for abdominal pain shortness of breath with nausea and vomiting. Negative for rash. EKG normal sinus rhythm with V1 V2 V3 consistent with old anterior septal infarct. CT abdomen concern for Cholelithiasis with pericholecystic fluid and gallbladder wall thickening suggests cholecystitis. Admitted for further care and given cipro + flagyl IV, tested for COVID 19 stat for likely surgery. Past Medical History Cardiovascular: HTN, Other Pulmonary: Asthma GI: No pertinent hx Heme/Onc: Other Hepatobiliary: No pertinent hx Psych: No pertinent hx Rheumatologic: Other Infectious disease: No pertinent hx Renal/: No pertinent hx Endocrine: Diabetes Past Surgical History Past Surgical History: Family History Family History: Coronary Artery Disease Social History Smoke: 1 pack per day ALCOHOL: none Drugs: Cocaine, Marijuana Current Medications Current Medications Current Medications Ondansetron HCl (Zofran) 4 mg 1X ONCE IVP Last administered on 12/13/20at 07:25; Start 12/13/20 at 06:45; Stop 12/13/20 at 06:46; Status DC Sodium Chloride 1,000 ml @ 1,000 mls/hr 1X ONCE IV Last administered on 12/13/20at 07:25; Start 12/13/20 at 06:45; Stop 12/13/20 at 07:44; Status DC Iohexol (Omnipaque 300 Mg/ml) 60 ml 1X ONCE IV Last administered on 12/13/20at 06:57; Start 12/13/20 at 07:00; Stop 12/13/20 at 07:01; Status DC Info (CONTRAST GIVEN -- Rx MONITORING) 1 each PRN DAILY PRN MC SEE COMMENTS; Start 12/13/20 at 07:00; Stop 12/15/20 at 06:59 Active Scripts Active Zofran (Ondansetron Hcl) 4 Mg Tablet 1 Tab PO Q6HRS [place] 5-325 Tablet (Acetaminophen/Hydrocodone Bitart) 1 Each Tablet 1 Tab PO Q6HRS Bactrim Ds Tablet (Sulfamethoxazole/Trimethoprim) 1 Each Tablet 1 Tab PO BID Cephalexin 500 Mg Capsule 1 Cap PO QID Patient tolerated Rocephin in the ED with no issues Bactrim Ds Tablet (Sulfamethoxazole/Trimethoprim) 1 Each Tablet 1 Tab PO BID Allergies Allergies: Coded Allergies: Penicillins (Verified Allergy, Intermediate, 01/02/14) ROS General: YES: Fatigue, Malaise; No: Chills, Night Sweats, Appetite, Other PSYCHOLOGICAL ROS: YES: Anxiety; No: Behavioral Disorder, Concentration difficultie, Decreased libido, Depression, Disorientation, Hallucinations, Hostility, Irritablity, Memory difficulties, Mood Swings, Obsessive thoughts, Physical abuse, Sexual abuse, Sleep disturbances, Suicidal ideation, Other Eyes: No Blurry vision, No Decreased vision, No Double vision, No Dry eyes, No Excessive tearing, No Eye Pain, No Itchy Eyes, No Loss of vision, No Photophobia, No Scotomata, No Uses contacts, No Uses glasses, No Other HEENT: No: Heacaches, Visual Changes, Hearing change, Nasal congestion, Nasal discharge, Oral lesions, Sinus pain, Sore Throat, Epistaxis, Sneezing, Snoring, Tinnitus, Vertigo, Vocal changes, Other ALLERGY AND IMMUNOLOGY: No: Hives, Insect Bite Sensitivity, Itchy/Watery Eyes, Nasal Congestion, Post Nasal Drip, Seasonal Allergies, Other Hematological and Lymphatic: No: Bleeding Problems, Blood Clots, Blood Transfusions, Brusing, Night Sweats, Pallor, Swollen Lymph Nodes, Other ENDOCRINE: No: Breast Changes, Galactorrhea, Hair Pattern Changes, Hot Flashes, Malaise/lethargy, Mood Swings, Palpitations, Polydipsia/polyuria, Skin Changes, Temperature Intolerance, Unexpected Weight Changes, Other Breast: No New/Changing Breast Lumps, No Nipple changes, No Nipple discharge, No Other Respiratory: No: Cough, Hemoptysis, Orthopnea, Pleuritic Pain, Shortness of breath, SOB with excertion, Sputum Changes, Stridor, Tachypnea, Wheezing, Other Cardiovascular: No Chest Pain, No Palpitations, No Orthopnea, No Paroxysmal Noc. Dyspnea, No Edema, No Lt Headedness, No Other Gastrointestinal: Yes Nausea, Yes Abdominal Pain; No Vomiting, No Diarrhea, No Constipation, No Melena, No Hematochezia, No Other Genitourinary: No Dysuria, No Frequency, No Incontinence, No Hematuria, No Retention, No Discharge, No Urgency, No Pain, No Flank Pain, No Other, No , No , No , No , No , No , No Musculoskeletal: No Gait Disturbance, No Joint Pain, No Joint Stiffness, No Joint Swelling, No Muscle Pain, No Muscular Weakness, No Pain In:, No Swelling In:, No Other Neurological: No Behavorial Changes, No Bowel/Bladder ControlChng, No Confusion, No Dizziness, No Gait Disturbance, No Headaches, No Impaired Coord/balance, No Memory Loss, No Numbness/Tingling, No Seizures, No Speech Problems, No Tremors, No Visual Changes, No Weakness, No Other Skin: No Dry Skin, No Eczema, No Hair Changes, No Lumps, No Mole Changes, No Mottling, No Nail Changes, No Pruritus, No Rash, No Skin Lesion Changes, No Other, No Acne Physical Exam General: Alert, Oriented X3, Cooperative, moderate distress HEENT: Atraumatic, PERRLA, EOMI, Mucous membr. moist/pink Lungs: Clear to auscultation, Normal air movement Heart: S1S2, RRR, no thrills, no rubs, no gallops, no murmurs Abdomen: Normal bowel sounds, Soft, No hepatosplenomegaly, No masses, Other (RUQ pain) Rectal Exam: not examined Extremities: No clubbing, No cyanosis, No edema, Normal pulses, No tenderness/swelling Skin: No rashes, No breakdown, No significant lesion Neuro: Normal gait, Normal speech, Strength at 5/5 X4 ext, Normal tone, Sensation intact, Cranial nerves 3-12 NL, Reflexes 2+ Psych/Mental Status: Mental status NL, Mood NL Vitals Vitals Vital Signs Date Time Temp Pulse Resp B/P (MAP) Pulse Ox O2 Delivery O2 Flow Rate FiO2 12/13/20 05:22 97.9 76 20 172/108 (129) 98 Room Air 97.9 Labs Labs Laboratory Tests Test 12/13/20 05:52 12/13/20 06:07 12/13/20 06:25 Serum Test, Qualitative Negative (NEG) White Blood Count 4.4 x10^3/uL (4.0-11.0) Red Blood Count 5.16 x10^6/uL (3.50-5.40) Hemoglobin 15.3 g/dL (12.0-15.5) Hematocrit 45.4 % (36.0-47.0) Mean Corpuscular Volume 88 fL (79-100) Mean Corpuscular Hemoglobin 30 pg (25-35) Mean Corpuscular Hemoglobin Concent 34 g/dL (31-37) Red Cell Distribution Width 13.6 % (11.5-14.5) Platelet Count 245 x10^3/uL (140-400) Neutrophils (%) (Auto) 34 % (31-73) Lymphocytes (%) (Auto) 56 % (24-48) Monocytes (%) (Auto) 5 % (0-9) Eosinophils (%) (Auto) 3 % (0-3) Basophils (%) (Auto) 1 % (0-3) Neutrophils # (Auto) 1.5 x10^3/uL (1.8-7.7) Lymphocytes # (Auto) 2.5 x10^3/uL (1.0-4.8) Monocytes # (Auto) 0.2 x10^3/uL (0.0-1.1) Eosinophils # (Auto) 0.1 x10^3/uL (0.0-0.7) Basophils # (Auto) 0.0 x10^3/uL (0.0-0.2) Sodium Level 140 mmol/L (136-145) Potassium Level 3.2 mmol/L (3.5-5.1) Chloride Level 103 mmol/L (98-107) Carbon Dioxide Level 33 mmol/L (21-32) Anion Gap 4 (6-14) Blood Urea Nitrogen 22 mg/dL (7-20) Creatinine 1.3 mg/dL (0.6-1.0) Estimated GFR (Cockcroft-Gault) 50.7 BUN/Creatinine Ratio 17 (6-20) Glucose Level 102 mg/dL (70-99) Calcium Level 9.7 mg/dL (8.5-10.1) Total Bilirubin 0.3 mg/dL (0.2-1.0) Aspartate Amino Transf (AST/SGOT) 16 U/L (15-37) Alanine Aminotransferase (ALT/SGPT) 20 U/L (14-59) Alkaline Phosphatase 78 U/L (46-116) Troponin I Quantitative < 0.017 ng/mL (0.000-0.055) Total Protein 8.6 g/dL (6.4-8.2) Albumin 3.5 g/dL (3.4-5.0) Albumin/Globulin Ratio 0.7 (1.0-1.7) Lipase 89 U/L (73-393) Urine Collection Type Unknown Urine Color Yellow Urine Clarity Clear Urine pH 7.5 (<5.0-8.0) Urine Specific [place] 1.015 (1.000-1.030) Urine Protein 30 mg/dL (NEG-TRACE) Urine Glucose (UA) Negative mg/dL (NEG) Urine Ketones (Stick) Negative mg/dL (NEG) Urine Blood Trace (NEG) Urine Nitrite Negative (NEG) Urine Bilirubin Negative (NEG) Urine Urobilinogen Dipstick 0.2 mg/dL (0.2 mg/dL) Urine Leukocyte Esterase Small (NEG) Urine RBC 0 /HPF (0-2) Urine WBC 1-4 /HPF (0-4) Urine Squamous Epithelial Cells Few /LPF Urine Bacteria 0 /HPF (0-FEW) Urine Mucus Slight /LPF Laboratory Tests Test 12/13/20 05:52 12/13/20 06:07 12/13/20 06:25 Serum Test, Qualitative Negative (NEG) White Blood Count 4.4 x10^3/uL (4.0-11.0) Red Blood Count 5.16 x10^6/uL (3.50-5.40) Hemoglobin 15.3 g/dL (12.0-15.5) Hematocrit 45.4 % (36.0-47.0) Mean Corpuscular Volume 88 fL (79-100) Mean Corpuscular Hemoglobin 30 pg (25-35) Mean Corpuscular Hemoglobin Concent 34 g/dL (31-37) Red Cell Distribution Width 13.6 % (11.5-14.5) Platelet Count 245 x10^3/uL (140-400) Neutrophils (%) (Auto) 34 % (31-73) Lymphocytes (%) (Auto) 56 % (24-48) Monocytes (%) (Auto) 5 % (0-9) Eosinophils (%) (Auto) 3 % (0-3) Basophils (%) (Auto) 1 % (0-3) Neutrophils # (Auto) 1.5 x10^3/uL (1.8-7.7) Lymphocytes # (Auto) 2.5 x10^3/uL (1.0-4.8) Monocytes # (Auto) 0.2 x10^3/uL (0.0-1.1) Eosinophils # (Auto) 0.1 x10^3/uL (0.0-0.7) Basophils # (Auto) 0.0 x10^3/uL (0.0-0.2) Sodium Level 140 mmol/L (136-145) Potassium Level 3.2 mmol/L (3.5-5.1) Chloride Level 103 mmol/L (98-107) Carbon Dioxide Level 33 mmol/L (21-32) Anion Gap 4 (6-14) Blood Urea Nitrogen 22 mg/dL (7-20) Creatinine 1.3 mg/dL (0.6-1.0) Estimated GFR (Cockcroft-Gault) 50.7 BUN/Creatinine Ratio 17 (6-20) Glucose Level 102 mg/dL (70-99) Calcium Level 9.7 mg/dL (8.5-10.1) Total Bilirubin 0.3 mg/dL (0.2-1.0) Aspartate Amino Transf (AST/SGOT) 16 U/L (15-37) Alanine Aminotransferase (ALT/SGPT) 20 U/L (14-59) Alkaline Phosphatase 78 U/L (46-116) Troponin I Quantitative < 0.017 ng/mL (0.000-0.055) Total Protein 8.6 g/dL (6.4-8.2) Albumin 3.5 g/dL (3.4-5.0) Albumin/Globulin Ratio 0.7 (1.0-1.7) Lipase 89 U/L (73-393) Urine Collection Type Unknown Urine Color Yellow Urine Clarity Clear Urine pH 7.5 (<5.0-8.0) Urine Specific [place] 1.015 (1.000-1.030) Urine Protein 30 mg/dL (NEG-TRACE) Urine Glucose (UA) Negative mg/dL (NEG) Urine Ketones (Stick) Negative mg/dL (NEG) Urine Blood Trace (NEG) Urine Nitrite Negative (NEG) Urine Bilirubin Negative (NEG) Urine Urobilinogen Dipstick 0.2 mg/dL (0.2 mg/dL) Urine Leukocyte Esterase Small (NEG) Urine RBC 0 /HPF (0-2) Urine WBC 1-4 /HPF (0-4) Urine Squamous Epithelial Cells Few /LPF Urine Bacteria 0 /HPF (0-FEW) Urine Mucus Slight /LPF Images Images CT scan of the abdomen pelvis with contrast: Lung bases are clear. There is no effusion. A liver lesion is not identified. Spleen is unremarkable. Adrenal glands are normal. Pancreas is normal. There is scarring and atrophy of the right kidney. There is no small bowel obstruction. There is moderate stool in the colon. Appendix is normal. Uterus and ovaries are unremarkable. There is no free air or free fluid. There is spondylolisthesis at L4-5 with spinal stenosis. There is marked facet arthritis at L4-5. Gallbladder is distended with gallstones. There is mild pericholecystic fluid. The pattern suggests acute cholecystitis. IMPRESSION: 1. Cholelithiasis with pericholecystic fluid and gallbladder wall thickening suggests cholecystitis. 2. Scarring and atrophy of the right kidney. 3. Spondylolisthesis L4-5 with spinal stenosis. VTE Prophylaxis Ordered VTE Prophylaxis Devices: Yes VTE Pharmacological Prophylaxi: Yes Assessment/Plan Assessment/Plan A/P: Epigastric abdominal pain - patient without hx of CAD. troponin negative. Cholecystitis on CT abdomen. IV cipro + flagyl, consult general surgery. NPO H/o cocaine abuse - counseled on cessation CKD - mild, appears at baseline with creatinine only mildly elevated. Hx possible SLE - patient apparently has not seen Rheumatology for this recently. Lung nodule - seen on CXR. Await CT chest results. Hypokalemia - replace, will trend, check mag DM2 - sliding scale Smoker - counseled on cessation FEN - NPO PPX - lovenox FULL CODE Dispo - inpatient Justifications for Admission Other Justification JESUS VALENZUELA MD Dec 13, 2020 08:09
[2020-12-13 08:43] LABS: BARBITURATES NEG (NEG); BENZODIAZEPINES NEG (NEG); CANNABINOIDS POS (NEG); COCAINE POS (NEG); METHADONE NEG (NEG); OPIATES NEG (NEG); PHENCYCLIDINE NEG (NEG)
[2020-12-13 08:44] LABS: AMPHETAMINE/METHAMPHETAMINE NEG (NEG)
[2020-12-13 09:00] VITALS: BP 152/96
--- NOTE | 2020-12-13 09:30 | PDOC2 ---
SHAVON KIMBROUGH ENERGY EFFICIENCY SPECIALIST 12/13/20 0929: CONSULT Date of Consult Date of Consult DATE: 12/13/20 TIME: 09:26 Reason for Consult Reason for Consult: cholecystitis Referring Physician Referring Physician: ER Identification/Chief Complaint Chief Complaint abdominal pain Source Source: Chart review, Patient History of Present Illness Reason for Visit: Patient in significant discomfort during exam. Reports 2 days of abdominal pain, nausea and emesis. Can not keep anything down. Denies constipation or diarrhea . No similar symptoms in past Past Medical History Cardiovascular: HTN, Other Pulmonary: Asthma GI: No pertinent hx Heme/Onc: Other Hepatobiliary: No pertinent hx Psych: No pertinent hx Rheumatologic: Other Infectious disease: No pertinent hx Renal/: No pertinent hx Endocrine: Diabetes Past Surgical History Past Surgical History: Family History Family History: Coronary Artery Disease Social History ALCOHOL: none Drugs: Cocaine, Marijuana Current Problem List Problem List Problems Medical Problems: (1) Cholecystitis Status: Acute Current Medications Current Medications Current Medications Ondansetron HCl (Zofran) 4 mg 1X ONCE IVP Last administered on 12/13/20at 07:25; Start 12/13/20 at 06:45; Stop 12/13/20 at 06:46; Status DC Sodium Chloride 1,000 ml @ 1,000 mls/hr 1X ONCE IV Last administered on 12/13/20at 07:25; Start 12/13/20 at 06:45; Stop 12/13/20 at 07:44; Status DC Iohexol (Omnipaque 300 Mg/ml) 60 ml 1X ONCE IV Last administered on 12/13/20at 06:57; Start 12/13/20 at 07:00; Stop 12/13/20 at 07:01; Status DC Info (CONTRAST GIVEN -- Rx MONITORING) 1 each PRN DAILY PRN MC SEE COMMENTS; Start 12/13/20 at 07:00; Stop 12/15/20 at 06:59 Ciprofloxacin/ Dextrose 200 ml @ 200 mls/hr 1X ONCE IV Last administered on 12/13/20at 08:10; Start 12/13/20 at 08:00; Stop 12/13/20 at 08:59; Status DC Metronidazole 100 ml @ 100 mls/hr 1X ONCE IV ; Start 12/13/20 at 08:00; Stop 12/13/20 at 08:59; Status DC Ondansetron HCl (Zofran) 4 mg PRN Q8HRS PRN IV NAUSEA/VOMITING; Start 12/13/20 at 08:00; Stop 12/14/20 at 07:59 Morphine Sulfate (Morphine Sulfate) 2 mg PRN Q2HR PRN IV PAIN; Start 12/13/20 at 08:00; Stop 12/14/20 at 07:59 Sodium Chloride 1,000 ml @ 120 mls/hr Q8H20M IV ; Start 12/13/20 at 08:00; Stop 12/13/20 at 11:59 Active Scripts Active Zofran (Ondansetron Hcl) 4 Mg Tablet 1 Tab PO Q6HRS [place] 5-325 Tablet (Acetaminophen/Hydrocodone Bitart) 1 Each Tablet 1 Tab PO Q6HRS Bactrim Ds Tablet (Sulfamethoxazole/Trimethoprim) 1 Each Tablet 1 Tab PO BID Cephalexin 500 Mg Capsule 1 Cap PO QID Patient tolerated Rocephin in the ED with no issues Bactrim Ds Tablet (Sulfamethoxazole/Trimethoprim) 1 Each Tablet 1 Tab PO BID Allergies Allergies: Coded Allergies: Penicillins (Verified Allergy, Intermediate, 01/02/14) ROS General: YES: Fatigue; No: Chills PSYCHOLOGICAL ROS: No: Anxiety, Depression Eyes: No Blurry vision, No Double vision HEENT: No: Heacaches, Sore Throat Hematological and Lymphatic: No: Bleeding Problems, Blood Clots Respiratory: YES: Shortness of breath (due to acute abdominal pain ); No: Cough Cardiovascular: No Chest Pain, No Palpitations Gastrointestinal: Yes Other (see hpi) Genitourinary: No Dysuria, No Hematuria Musculoskeletal: No Joint Pain, No Muscle Pain Neurological: No Impaired Coord/balance, No Numbness/Tingling Skin: No Pruritus, No Rash Physical Exam General: Alert, Oriented X3, Cooperative HEENT: Atraumatic, PERRLA Lungs: Clear to auscultation, Normal air movement Heart: Regular rate, Normal S1, Normal S2 Abdomen: Soft, Other (moderate TTP epigastric, RUQ) Extremities: No clubbing, No cyanosis Skin: No rashes, No breakdown Neuro: Normal gait, Normal speech Psych/Mental Status: Mental status NL, Mood NL MUSCULOSKELETAL: No deformity, No swelling Vitals VITALS Vital Signs Date Time Temp Pulse Resp B/P (MAP) Pulse Ox O2 Delivery O2 Flow Rate FiO2 3/19/21 08:00 60 16 158/85 (109) 100 Room Air 12/13/20 05:22 97.9 97.9 Labs Labs Laboratory Tests Test 12/13/20 05:52 12/13/20 06:07 12/13/20 06:25 12/13/20 08:14 Serum Test, Qualitative Negative (NEG) White Blood Count 4.4 x10^3/uL (4.0-11.0) Red Blood Count 5.16 x10^6/uL (3.50-5.40) Hemoglobin 15.3 g/dL (12.0-15.5) Hematocrit 45.4 % (36.0-47.0) Mean Corpuscular Volume 88 fL (79-100) Mean Corpuscular Hemoglobin 30 pg (25-35) Mean Corpuscular Hemoglobin Concent 34 g/dL (31-37) Red Cell Distribution Width 13.6 % (11.5-14.5) Platelet Count 245 x10^3/uL (140-400) Neutrophils (%) (Auto) 34 % (31-73) Lymphocytes (%) (Auto) 56 % (24-48) Monocytes (%) (Auto) 5 % (0-9) Eosinophils (%) (Auto) 3 % (0-3) Basophils (%) (Auto) 1 % (0-3) Neutrophils # (Auto) 1.5 x10^3/uL (1.8-7.7) Lymphocytes # (Auto) 2.5 x10^3/uL (1.0-4.8) Monocytes # (Auto) 0.2 x10^3/uL (0.0-1.1) Eosinophils # (Auto) 0.1 x10^3/uL (0.0-0.7) Basophils # (Auto) 0.0 x10^3/uL (0.0-0.2) Sodium Level 140 mmol/L (136-145) Potassium Level 3.2 mmol/L (3.5-5.1) Chloride Level 103 mmol/L (98-107) Carbon Dioxide Level 33 mmol/L (21-32) Anion Gap 4 (6-14) Blood Urea Nitrogen 22 mg/dL (7-20) Creatinine 1.3 mg/dL (0.6-1.0) Estimated GFR (Cockcroft-Gault) 50.7 BUN/Creatinine Ratio 17 (6-20) Glucose Level 102 mg/dL (70-99) Calcium Level 9.7 mg/dL (8.5-10.1) Magnesium Level 2.1 mg/dL (1.8-2.4) Total Bilirubin 0.3 mg/dL (0.2-1.0) Aspartate Amino Transf (AST/SGOT) 16 U/L (15-37) Alanine Aminotransferase (ALT/SGPT) 20 U/L (14-59) Alkaline Phosphatase 78 U/L (46-116) Troponin I Quantitative < 0.017 ng/mL (0.000-0.055) Total Protein 8.6 g/dL (6.4-8.2) Albumin 3.5 g/dL (3.4-5.0) Albumin/Globulin Ratio 0.7 (1.0-1.7) Lipase 89 U/L (73-393) Urine Collection Type Unknown Urine Color Yellow Urine Clarity Clear Urine pH 7.5 (<5.0-8.0) Urine Specific [place] 1.015 (1.000-1.030) Urine Protein 30 mg/dL (NEG-TRACE) Urine Glucose (UA) Negative mg/dL (NEG) Urine Ketones (Stick) Negative mg/dL (NEG) Urine Blood Trace (NEG) Urine Nitrite Negative (NEG) Urine Bilirubin Negative (NEG) Urine Urobilinogen Dipstick 0.2 mg/dL (0.2 mg/dL) Urine Leukocyte Esterase Small (NEG) Urine RBC 0 /HPF (0-2) Urine WBC 1-4 /HPF (0-4) Urine Squamous Epithelial Cells Few /LPF Urine Bacteria 0 /HPF (0-FEW) Urine Mucus Slight /LPF Urine Opiates Screen Neg (NEG) Urine Methadone Screen Neg (NEG) Urine Barbiturates Neg (NEG) Urine Phencyclidine Screen Neg (NEG) Urine Amphetamine/Methamphetamine Neg (NEG) Urine Benzodiazepines Screen Neg (NEG) Urine Cocaine Screen Pos (NEG) Urine Cannabinoids Screen Pos (NEG) Urine Ethyl Alcohol Neg (NEG) SARS-CoV-2 Antigen (Rapid) Negative (NEGATIVE) Laboratory Tests Test 12/13/20 05:52 12/13/20 06:07 12/13/20 06:25 3/19/21 08:14 Serum Test, Qualitative Negative (NEG) White Blood Count 4.4 x10^3/uL (4.0-11.0) Red Blood Count 5.16 x10^6/uL (3.50-5.40) Hemoglobin 15.3 g/dL (12.0-15.5) Hematocrit 45.4 % (36.0-47.0) Mean Corpuscular Volume 88 fL (79-100) Mean Corpuscular Hemoglobin 30 pg (25-35) Mean Corpuscular Hemoglobin Concent 34 g/dL (31-37) Red Cell Distribution Width 13.6 % (11.5-14.5) Platelet Count 245 x10^3/uL (140-400) Neutrophils (%) (Auto) 34 % (31-73) Lymphocytes (%) (Auto) 56 % (24-48) Monocytes (%) (Auto) 5 % (0-9) Eosinophils (%) (Auto) 3 % (0-3) Basophils (%) (Auto) 1 % (0-3) Neutrophils # (Auto) 1.5 x10^3/uL (1.8-7.7) Lymphocytes # (Auto) 2.5 x10^3/uL (1.0-4.8) Monocytes # (Auto) 0.2 x10^3/uL (0.0-1.1) Eosinophils # (Auto) 0.1 x10^3/uL (0.0-0.7) Basophils # (Auto) 0.0 x10^3/uL (0.0-0.2) Sodium Level 140 mmol/L (136-145) Potassium Level 3.2 mmol/L (3.5-5.1) Chloride Level 103 mmol/L (98-107) Carbon Dioxide Level 33 mmol/L (21-32) Anion Gap 4 (6-14) Blood Urea Nitrogen 22 mg/dL (7-20) Creatinine 1.3 mg/dL (0.6-1.0) Estimated GFR (Cockcroft-Gault) 50.7 BUN/Creatinine Ratio 17 (6-20) Glucose Level 102 mg/dL (70-99) Calcium Level 9.7 mg/dL (8.5-10.1) Magnesium Level 2.1 mg/dL (1.8-2.4) Total Bilirubin 0.3 mg/dL (0.2-1.0) Aspartate Amino Transf (AST/SGOT) 16 U/L (15-37) Alanine Aminotransferase (ALT/SGPT) 20 U/L (14-59) Alkaline Phosphatase 78 U/L (46-116) Troponin I Quantitative < 0.017 ng/mL (0.000-0.055) Total Protein 8.6 g/dL (6.4-8.2) Albumin 3.5 g/dL (3.4-5.0) Albumin/Globulin Ratio 0.7 (1.0-1.7) Lipase 89 U/L (73-393) Urine Collection Type Unknown Urine Color Yellow Urine Clarity Clear Urine pH 7.5 (<5.0-8.0) Urine Specific [place] 1.015 (1.000-1.030) Urine Protein 30 mg/dL (NEG-TRACE) Urine Glucose (UA) Negative mg/dL (NEG) Urine Ketones (Stick) Negative mg/dL (NEG) Urine Blood Trace (NEG) Urine Nitrite Negative (NEG) Urine Bilirubin Negative (NEG) Urine Urobilinogen Dipstick 0.2 mg/dL (0.2 mg/dL) Urine Leukocyte Esterase Small (NEG) Urine RBC 0 /HPF (0-2) Urine WBC 1-4 /HPF (0-4) Urine Squamous Epithelial Cells Few /LPF Urine Bacteria 0 /HPF (0-FEW) Urine Mucus Slight /LPF Urine Opiates Screen Neg (NEG) Urine Methadone Screen Neg (NEG) Urine Barbiturates Neg (NEG) Urine Phencyclidine Screen Neg (NEG) Urine Amphetamine/Methamphetamine Neg (NEG) Urine Benzodiazepines Screen Neg (NEG) Urine Cocaine Screen Pos (NEG) Urine Cannabinoids Screen Pos (NEG) Urine Ethyl Alcohol Neg (NEG) SARS-CoV-2 Antigen (Rapid) Negative (NEGATIVE) Assessment/Plan Assessment/Plan acute cholecystitis plan lap raheem noted urine results + cocaine SAHRA MATTA MD 12/13/20 1313: CONSULT Assessment/Plan Assessment/Plan Pt seen and examined by myself; 60 year old female reported to the ER with abdominal pain, vomiting, started Wednesday, pain located in central and lower abdomen; ER evaluation consistent with cholecystitis; PMH/PSH/ROS/SH as above; exam: alert, oriented, uncomfortable, lungs clear, heart RR and R, abdomen tender RUQ with guarding; A/P) Abdominal pain, suspect cholecystitis, plan for lap raheem. The details/risks of surgery were discussed with the patient, and she agrees to proceed. SHAVON KIMBROUGH APRN Dec 13, 2020 09:29 SAHRA MATTA MD Dec 13, 2020 13:13
--- NOTE | 2020-12-13 10:22 | PDOC2 ---
GI CONSULT Date of Service: DATE: 12/13/20 TIME: 10:22 Reason For Consult: cholecystitis HPI: HPI: 60 y/o female admitted through ER. Seen w/ Dr. Mcdonald. Abd pain (middle/diffuse) yesterday, associated w/ n/v. Labs w/ normal LFTs, +cocaine, +cannabinoids. Imaging notes cholelithiasis/cholecystitis. No comment re: CBD. Plans for cholecystectomy/IOC today. PMH: PMH: HTN, asthma, DM, CKD, ?SLE FH: Family History: CAD, Other (family memebers w/ GB disease) Social History: Drugs: Cocaine, Marijuana ROS: GEN: Denies fevers, chills, sweats HEENT: Denies blurred vision, sore throat CV: Denies chest pain RESP: Denies shortness of air, cough GI: Per HPI : Denies hematuria, dysuria ENDO: Denies weight changes NEURO: Denies confusion, dizziness MSK: Denies weakness, joint pain/swelling SKIN: Denies jaundice, pruritus Vitals: Vitals: Vital Signs Date Time Temp Pulse Resp B/P (MAP) Pulse Ox O2 Delivery O2 Flow Rate FiO2 12/13/20 09:00 97.2 62 18 152/96 (114) 98 Room Air 97.2 Labs: Labs: Laboratory Tests Test 12/13/20 05:52 12/13/20 06:07 12/13/20 06:25 12/13/20 08:14 Serum Test, Qualitative Negative (NEG) White Blood Count 4.4 x10^3/uL (4.0-11.0) Red Blood Count 5.16 x10^6/uL (3.50-5.40) Hemoglobin 15.3 g/dL (12.0-15.5) Hematocrit 45.4 % (36.0-47.0) Mean Corpuscular Volume 88 fL (79-100) Mean Corpuscular Hemoglobin 30 pg (25-35) Mean Corpuscular Hemoglobin Concent 34 g/dL (31-37) Red Cell Distribution Width 13.6 % (11.5-14.5) Platelet Count 245 x10^3/uL (140-400) Neutrophils (%) (Auto) 34 % (31-73) Lymphocytes (%) (Auto) 56 % (24-48) Monocytes (%) (Auto) 5 % (0-9) Eosinophils (%) (Auto) 3 % (0-3) Basophils (%) (Auto) 1 % (0-3) Neutrophils # (Auto) 1.5 x10^3/uL (1.8-7.7) Lymphocytes # (Auto) 2.5 x10^3/uL (1.0-4.8) Monocytes # (Auto) 0.2 x10^3/uL (0.0-1.1) Eosinophils # (Auto) 0.1 x10^3/uL (0.0-0.7) Basophils # (Auto) 0.0 x10^3/uL (0.0-0.2) Sodium Level 140 mmol/L (136-145) Potassium Level 3.2 mmol/L (3.5-5.1) Chloride Level 103 mmol/L (98-107) Carbon Dioxide Level 33 mmol/L (21-32) Anion Gap 4 (6-14) Blood Urea Nitrogen 22 mg/dL (7-20) Creatinine 1.3 mg/dL (0.6-1.0) Estimated GFR (Cockcroft-Gault) 50.7 BUN/Creatinine Ratio 17 (6-20) Glucose Level 102 mg/dL (70-99) Calcium Level 9.7 mg/dL (8.5-10.1) Magnesium Level 2.1 mg/dL (1.8-2.4) Total Bilirubin 0.3 mg/dL (0.2-1.0) Aspartate Amino Transf (AST/SGOT) 16 U/L (15-37) Alanine Aminotransferase (ALT/SGPT) 20 U/L (14-59) Alkaline Phosphatase 78 U/L (46-116) Troponin I Quantitative < 0.017 ng/mL (0.000-0.055) Total Protein 8.6 g/dL (6.4-8.2) Albumin 3.5 g/dL (3.4-5.0) Albumin/Globulin Ratio 0.7 (1.0-1.7) Lipase 89 U/L (73-393) Urine Collection Type Unknown Urine Color Yellow Urine Clarity Clear Urine pH 7.5 (<5.0-8.0) Urine Specific [place] 1.015 (1.000-1.030) Urine Protein 30 mg/dL (NEG-TRACE) Urine Glucose (UA) Negative mg/dL (NEG) Urine Ketones (Stick) Negative mg/dL (NEG) Urine Blood Trace (NEG) Urine Nitrite Negative (NEG) Urine Bilirubin Negative (NEG) Urine Urobilinogen Dipstick 0.2 mg/dL (0.2 mg/dL) Urine Leukocyte Esterase Small (NEG) Urine RBC 0 /HPF (0-2) Urine WBC 1-4 /HPF (0-4) Urine Squamous Epithelial Cells Few /LPF Urine Bacteria 0 /HPF (0-FEW) Urine Mucus Slight /LPF Urine Opiates Screen Neg (NEG) Urine Methadone Screen Neg (NEG) Urine Barbiturates Neg (NEG) Urine Phencyclidine Screen Neg (NEG) Urine Amphetamine/Methamphetamine Neg (NEG) Urine Benzodiazepines Screen Neg (NEG) Urine Cocaine Screen Pos (NEG) Urine Cannabinoids Screen Pos (NEG) Urine Ethyl Alcohol Neg (NEG) SARS-CoV-2 Antigen (Rapid) Negative (NEGATIVE) Allergies: Coded Allergies: Penicillins (Verified Allergy, Intermediate, 01/02/14) Medications: Current Medications Medications (Trade) Dose Ordered Sig/Quinton Route PRN Reason Start Time Stop Time Status Last Admin Dose Admin Ondansetron HCl (Zofran) 4 mg 1X ONCE IVP 12/13/20 06:45 12/13/20 06:46 DC 12/13/20 07:25 Sodium Chloride 1,000 ml @ 1,000 mls/hr 1X ONCE IV 12/13/20 06:45 12/13/20 07:44 DC 12/13/20 07:25 Iohexol (Omnipaque 300 Mg/ml) 60 ml 1X ONCE IV 12/13/20 07:00 12/13/20 07:01 DC 12/13/20 06:57 Ciprofloxacin/ Dextrose 200 ml @ 200 mls/hr 1X ONCE IV 12/13/20 08:00 12/13/20 08:59 DC 12/13/20 08:10 Imaging: Imaging: CT A/P IMPRESSION: 1. Cholelithiasis with pericholecystic fluid and gallbladder wall thickening suggests cholecystitis. 2. Scarring and atrophy of the right kidney. 3. Spondylolisthesis L4-5 with spinal stenosis. CXR Impression: Subtle parenchymal opacity at the right lung base and developing pneumonia cannot be excluded. PE: GEN: NAD HEENT: Atraumatic, PERRL LUNGS: CTAB HEART: RRR ABD: NABS, S/ND, periumbilical tenderness EXTREMITY: No edema SKIN: No rashes, no jaundice NEURO/PSYCH: A & O 3 A/P: A/P: Abd pain, n/v Cholelithiasis, cholecystitis +cocaine, +cannabinoids Rapid COVID negative -- Continue per surgery, await IOC. SHAHIDA GAMINO Dec 13, 2020 10:22
[2020-12-13 11:00] VITALS: BP 156/95
[2020-12-13] MEDS ORDERED: IOHEXOL 300 MG/ML 50 ML VIAL. ONE (11:53)
[2020-12-13] MEDS ORDERED: SURGICEL HEMOSTAT 4X8 EACH. ONE (11:54)
[2020-12-13] MEDS ORDERED: BUPIVACAINE MPF 0.5% 30 ML VIAL. ONE (11:54)
[2020-12-13] MEDS ORDERED: ACETAMINOPHEN 325 MG TABLET. PO PRN (12:15)
[2020-12-13] MEDS ORDERED: traMADol 50 MG TABLET PO PRN (12:15)
[2020-12-13] MEDS ORDERED: NEOSTIGMINE METHYLSULFATE 5 MG/5 ML SYRINGE. ONE (12:51)
[2020-12-13] MEDS ORDERED: ROCURONIUM 50 MG/5 ML VIAL. ONE (12:51)
[2020-12-13] MEDS ORDERED: GLYCOPYRROLATE 1 MG/5 ML VIAL. ONE (12:51)
[2020-12-13] MEDS ORDERED: LIDOCAINE 2% PF 5 ML VIAL. ONE (12:53)
[2020-12-13] MEDS ORDERED: SEVOFLURANE 61 TO 120 MINUTES. IH ONE (12:53)
[2020-12-13] MEDS ORDERED: PROPOFOL 10 MG/ML (20ML) VIAL. IV ONE (12:53)
[2020-12-13] MEDS ORDERED: DEXAMETHASONE SOD PHOS 4 MG/ML VIAL ONE (12:53)
[2020-12-13] MEDS ORDERED: ONDANSETRON PF 4 MG/2 ML VIAL. ONE (12:53)
[2020-12-13] MEDS ORDERED: POTASSIUM CL 40MEQ D5-0.45NACL 1,000 ML IV SCH (13:00)
[2020-12-13] MEDS ORDERED: IV RINGERS,LACTATED 1000ML 1,000 ML IV SCH (13:15)
[2020-12-13] MEDS ORDERED: PHENYLEPHRINE in 0.9% NACL PF 1 MG/10 ML SYRINGE. IV ONE (13:22)
--- NOTE | 2020-12-13 13:28 | NUR ---
SW following for discharge planning. SW reviewed chart and spoke with RN. Pt from home. Pt on room air, NPO, IV potassium. RAPID COVID result negative. Pt will likely discharge home, self-care. SW following.
[2020-12-13] MEDS ORDERED: ESMOLOL 100 MG/10 ML VIAL. IVP ONE (13:37)
[2020-12-13] MEDS ORDERED: fentaNYL PF VIAL 100 MCG/2 ML VIAL ONE ×2 (13:39→14:42)
--- NOTE | 2020-12-13 14:08 | RAD ---
INDICATION: Reason: CHOLANGIOGRAMS DONE IN OR WITH C-ARM, 39 SEC FT, 3 IMAGES SENT / Spl. Instruction s: / History: . Fluoro for procedure. IMPRESSION: Fluoroscopy was utilized by the clinical service to assist with their procedure. There are 3 saved images/series. The limited saved images show spot images of the upper abdomen with contrast injection of the bile du cts with opacification of the common bile duct with contrast extending into the duodenum without evid ence of common bile duct obstruction.. 39 seconds of fluoroscopy time was used. This dictation is for the usage of fluoroscopy only. Please see the clinical service's procedure note for detail on the procedure. Electronically signed by: Abhi Jarrell MD (12/13/2020 2:05 PM) [id number]
--- NOTE | 2020-12-13 14:26 | PDOC4 ---
Operative Note Operative Note Operative Note: Preoperative Diagnosis: Acute cholecystitis Postoperative Diagnosis: Same Procedure: Laparoscopic cholecystectomy with intraoperative cholangiogram Surgeons: Winston Chief Environmental Commitment Officer: Chuckie SMITH Anesthesia: Gen. Estimated Blood Loss: 20 mL Specimen: Gallbladder to pathology Drains: None Complications: None Indications: The patient is a 60-year-old female was admitted with abdominal pain. Her evaluation is consistent with cholecystitis. Surgical treatment was offered by means of a laparoscopic cholecystectomy. The risks of surgery were discussed which include bleeding, infection, bile duct injury, bile leak, pain, the potential for additional surgeries or procedures. The patient understands and would like to proceed. Description: The patient was taken to the operating room and laid supine on the operating table. General anesthesia was performed. The abdomen was prepped with ChloraPrep and draped in a standard surgical fashion. A small infraumbilical incision was made with a scalpel. The Veress needle was then inserted and a pneumoperitoneum was then created. A 5 mm trocar was then inserted and the laparoscope was introduced. In the upper midabdomen a 5 mm trocar was inserted and in the right upper quadrant one 2.3 mm mini lap grasper and one 5 mm trocar were inserted. The gallbladder was retracted cephalad. The cystic duct was dissected free from surrounding tissues. One clip was placed on the duct near the gallbladder junction. An opening was made in the duct and a cholangiocatheter placed within and secured with a clip. Using contrast dye and fluoroscopy an intraoperative cholangiogram was performed that appeared unremarkable. The clip and catheter were then withdrawn. Three clips were placed on the cystic duct and it was divided. The cystic artery was then identified, dissected free, doubly clipped and divided as well. The gallbladder was then mobilized away from the liver with cautery. The umbilical 5 millimeter trocar was exchanged for an 11 millimeter trocar. The gallbladder was then placed in an endoscopic bag and extracted at the umbilical trocar site. The fascia there was closed with an 0 PDS sutures. All blood and irrigation fluid w as suctioned and hemostasis was good. The remaining ports were removed and the pneumoperitoneum was relieved. The skin incisions were closed using 4-0 Monocryl suture. Steri-Strips and dressings were then applied. The patient tolerated the procedure well and was sent to the recovery room in stable condition. At the end of the case all counts were correct. SAHRA MATTA MD Dec 13, 2020 14:26
[2020-12-13] MEDS ORDERED: HYDROcodone/APAP 5/325MG 1 TAB TABLET PO PRN (14:30)
[2020-12-13] MEDS: fentaNYL PF VIAL 100 MCG/2 ML VIAL IVP PRN ×2 (14:49→14:54)
[2020-12-13] MEDS ORDERED: INSULIN LISPRO 100 UNIT/ML 3ML VIAL for OP,RR ONLY. SQ PRN (15:00)
[2020-12-13] MEDS ORDERED: HYDROmorphone 2 MG/ML VIAL IV PRN (15:00)
[2020-12-13] MEDS ORDERED: fentaNYL PF VIAL 100 MCG/2 ML VIAL IVP PRN (15:00)
[2020-12-13] MEDS ORDERED: PROCHLORPERAZINE 10 MG/2 ML VIAL. IVP PRN (15:00)
[2020-12-13] MEDS ORDERED: ONDANSETRON PF 4 MG/2 ML VIAL. IVP PRN (15:00)
[2020-12-13] MEDS ORDERED: MORPHINE SULFATE 2 MG/ML VIAL. ONE (15:02)
[2020-12-13] MEDS ORDERED: PROCHLORPERAZINE 10 MG/2 ML VIAL. ONE (15:02)
[2020-12-13 18:45] VITALS: BP 139/64
[2020-12-13 19:45] VITALS: BP 151/97
[2020-12-13] MEDS: HYDROcodone/APAP 5/325MG 1 TAB TABLET PO PRN (20:57)
[2020-12-13 23:00] VITALS: BP 143/89
[2020-12-14] MEDS: HYDROcodone/APAP 5/325MG 1 TAB TABLET PO PRN ×2 (01:01→09:08)
[2020-12-14 03:00] VITALS: BP 128/79
[2020-12-14 05:08] LABS: ALBUMIN 2.7 g/dL (3.4-5.0); ALBUMIN/GLOBULIN RATIO 0.6 (1.0-1.7); CALCIUM 8.3 mg/dL (8.5-10.1); CREATININE 1.2 mg/dL (0.6-1.0); GFR 55.6; MAGNESIUM 1.8 mg/dL (1.8-2.4); POTASSIUM 4.2 mmol/L (3.5-5.1); TOTAL BILIRUBIN 0.3 mg/dL (0.2-1.0); TOTAL PROTEIN 7.1 g/dL (6.4-8.2)
[2020-12-14 07:00] VITALS: BP 133/74
--- NOTE | 2020-12-14 09:34 | PDOC ---
[facility] PROGRESS NOTE Date of Service DOS: DATE: 12/14/20 TIME: 09:28 Chief Complaint Chief Complaint Epigastric abdominal pain - patient without hx of CAD. troponin negative. Cholecystitis on CT abdomen. IV cipro + flagyl, consult general surgery. NPO H/o cocaine abuse - counseled on cessation CKD - mild, appears at baseline with creatinine only mildly elevated. Hx possible SLE - patient apparently has not seen Rheumatology for this recently. Lung nodule - seen on CXR. Await CT chest results. Hypokalemia - replace, will trend, check mag DM2 - sliding scale Smoker - counseled on cessation FEN - NPO PPX - lovenox FULL CODE Dispo - inpatient History of Present Illness History of Present Illness Ms Ferrer is a 60yo F w/ PMHx DM2, ?lupus, smoker who presents to ED c/o abd ominal pain which is general for the past 2 to 3 days. It is associated with nausea and vomiting. Her vomitus is nonbilious and nonbloody. She was able to have a bowel movement here in the emergency department. Her pain is sharp shooting intermittent. It is mildly alleviated with Tums. She also complains of shortness of breath with body aches fatigue. She had a loss of taste and smell 3 days ago as well. Labs with WBC 4.4, Hb 15.3, platelets 245, Na 140, K 3.2 BUn 22 Cr 1.3, Trop 0 Review of systems negative for chest pain headache nuchal rigidity. Positive for abdominal pain shortness of breath with nausea and vomiting. Negative for rash. EKG normal sinus rhythm with V1 V2 V3 consistent with old anterior septal infarct. CT abdomen concern for Cholelithiasis with pericholecystic fluid and gallbladder wall thickening suggests cholecystitis. Admitted for further care and given cipro + flagyl IV, tested for COVID 19 stat for likely surgery. 12/14/2020: S/P laparoscopic cholecystectomy. Afebrile. Some postsurgical pain, well controlled. Tolerating regular diet. Per RN, general surgery okay with discharge home today. Greater than 30 minutes was spent managing the discharge of this patient. Vitals/I&O Vitals/I&O: Vital Signs Date Time Temp Pulse Resp B/P (MAP) Pulse Ox O2 Delivery O2 Flow Rate FiO2 12/14/20 09:08 99 Room Air 12/14/20 07:00 97.7 67 18 133/74 (93) 97.7 12/13/20 15:04 6.0 I & O 12/13/20 12/13/20 12/14/20 15:00 23:00 07:00 Intake Total 1000 ml 240 ml 700 ml Output Total 20 ml 300 ml 250 ml Balance 980 ml -60 ml 450 ml Physical Exam General: Alert, Oriented X3, Cooperative, No acute distress Heart: Regular rate, Normal S1, Normal S2 Abdomen: Normal bowel sounds, Soft, No hepatosplenomegaly, No masses, Other (RUQ pain) Extremities: No clubbing, No cyanosis, No edema, Normal pulses, No tenderness/swelling Skin: No rashes, No breakdown, No significant lesion Labs Labs: Laboratory Tests Test 12/13/20 14:52 12/14/20 04:00 Glucose (Fingerstick) 127 mg/dL (70-99) Sodium Level 142 mmol/L (136-145) Potassium Level 4.2 mmol/L (3.5-5.1) Chloride Level 107 mmol/L (98-107) Carbon Dioxide Level 27 mmol/L (21-32) Anion Gap 8 (6-14) Blood Urea Nitrogen 14 mg/dL (7-20) Creatinine 1.2 mg/dL (0.6-1.0) Estimated GFR (Cockcroft-Gault) 55.6 BUN/Creatinine Ratio 12 (6-20) Glucose Level 135 mg/dL (70-99) Calcium Level 8.3 mg/dL (8.5-10.1) Magnesium Level 1.8 mg/dL (1.8-2.4) Total Bilirubin 0.3 mg/dL (0.2-1.0) Aspartate Amino Transf (AST/SGOT) 22 U/L (15-37) Alanine Aminotransferase (ALT/SGPT) 23 U/L (14-59) Alkaline Phosphatase 65 U/L (46-116) Total Protein 7.1 g/dL (6.4-8.2) Albumin 2.7 g/dL (3.4-5.0) Albumin/Globulin Ratio 0.6 (1.0-1.7) Assessment and Plan Assessmemt and Plan Problems Medical Problems: (1) Cholecystitis Status: Acute Comment Review of Relevant I have reviewed the following items kelli (where applicable) has been applied. Medications: Current Medications Medications (Trade) Dose Ordered Sig/Quinton Route PRN Reason Start Time Stop Time Status Last Admin Dose Admin Iohexol (Omnipaque 300 Mg/ml) 50 ml STK-MED ONCE .ROUTE 12/13/20 11:53 12/13/20 11:54 DC 12/13/20 13:29 Bupivacaine HCl (Sensorcaine Mpf 0.5%) 30 ml STK-MED ONCE .ROUTE 12/13/20 11:54 12/13/20 11:54 DC 12/13/20 13:29 Potassium Chloride/Dextrose/ Sod Cl 1,000 ml @ 80 mls/hr [id number] IV 12/13/20 13:00 12/14/20 01:29 DC 12/13/20 16:06 Ringer's Solution 1,000 ml @ 0 mls/hr Q0M IV 12/13/20 13:15 12/13/20 16:44 DC 12/13/20 13:05 Acetaminophen/ Hydrocodone Bitart (Lortab 5/325) 1 tab PRN Q4HRS PRN PO PAIN 12/13/20 14:30 12/13/20 16:51 Acetaminophen/ Hydrocodone Bitart (Lortab 5/325) 2 tab PRN Q4HRS PRN PO PAIN 12/13/20 14:45 12/14/20 09:08 Fentanyl Citrate (Fentanyl 2ml Vial) 50 mcg PRN Q5MIN PRN IVP Acute Pain 12/13/20 15:00 12/13/20 16:44 DC 12/13/20 14:49 Prochlorperazine Edisylate (Compazine) 5 mg PRN Q6HRS PRN IVP Nausea/Vomiting, 1st Choice 12/13/20 15:00 12/13/20 16:44 DC 12/13/20 15:04 Justifications for Admission Other Justification RODRIGO MACDONALD MD Dec 14, 2020 09:33
[2020-12-14 11:36] VITALS: BP 155/96
--- NOTE | 2020-12-14 11:51 | PDOC ---
PROGRESS NOTES Date of Service DATE: 12/14/20 TIME: 11:51 Subjective Subjective doing well Objective Objective Vital Signs Date Time Temp Pulse Resp B/P (MAP) Pulse Ox O2 Delivery O2 Flow Rate FiO2 12/14/20 11:36 98.3 67 20 155/96 (115) 97 Room Air 98.3 12/14/20 11:09 6.0 Intake and Output 12/14/20 07:00 Intake Total 1940 ml Output Total 570 ml Balance 1370 ml Intake Oral 940 ml IV Total 1000 ml Output Urine Total 550 ml Estimated Blood Loss 20 ml # Voids 1 Physical Exam Abdomen: Soft Assessment Assessment Problems Medical Problems: (1) Cholecystitis Status: Acute Plan Plan of Care OK to discharge Comment Review of Relevant I have reviewed the following items kelli (where applicable) has been applied. Labs Laboratory Tests Test 12/13/20 05:52 12/13/20 06:07 12/13/20 06:25 12/13/20 08:14 Serum Test, Qualitative Negative (NEG) White Blood Count 4.4 x10^3/uL (4.0-11.0) Red Blood Count 5.16 x10^6/uL (3.50-5.40) Hemoglobin 15.3 g/dL (12.0-15.5) Hematocrit 45.4 % (36.0-47.0) Mean Corpuscular Volume 88 fL (79-100) Mean Corpuscular Hemoglobin 30 pg (25-35) Mean Corpuscular Hemoglobin Concent 34 g/dL (31-37) Red Cell Distribution Width 13.6 % (11.5-14.5) Platelet Count 245 x10^3/uL (140-400) Neutrophils (%) (Auto) 34 % (31-73) Lymphocytes (%) (Auto) 56 % (24-48) Monocytes (%) (Auto) 5 % (0-9) Eosinophils (%) (Auto) 3 % (0-3) Basophils (%) (Auto) 1 % (0-3) Neutrophils # (Auto) 1.5 x10^3/uL (1.8-7.7) Lymphocytes # (Auto) 2.5 x10^3/uL (1.0-4.8) Monocytes # (Auto) 0.2 x10^3/uL (0.0-1.1) Eosinophils # (Auto) 0.1 x10^3/uL (0.0-0.7) Basophils # (Auto) 0.0 x10^3/uL (0.0-0.2) Sodium Level 140 mmol/L (136-145) Potassium Level 3.2 mmol/L (3.5-5.1) Chloride Level 103 mmol/L (98-107) Carbon Dioxide Level 33 mmol/L (21-32) Anion Gap 4 (6-14) Blood Urea Nitrogen 22 mg/dL (7-20) Creatinine 1.3 mg/dL (0.6-1.0) Estimated GFR (Cockcroft-Gault) 50.7 BUN/Creatinine Ratio 17 (6-20) Glucose Level 102 mg/dL (70-99) Calcium Level 9.7 mg/dL (8.5-10.1) Magnesium Level 2.1 mg/dL (1.8-2.4) Total Bilirubin 0.3 mg/dL (0.2-1.0) Aspartate Amino Transf (AST/SGOT) 16 U/L (15-37) Alanine Aminotransferase (ALT/SGPT) 20 U/L (14-59) Alkaline Phosphatase 78 U/L (46-116) Troponin I Quantitative < 0.017 ng/mL (0.000-0.055) Total Protein 8.6 g/dL (6.4-8.2) Albumin 3.5 g/dL (3.4-5.0) Albumin/Globulin Ratio 0.7 (1.0-1.7) Lipase 89 U/L (73-393) Urine Collection Type Unknown Urine Color Yellow Urine Clarity Clear Urine pH 7.5 (<5.0-8.0) Urine Specific [place] 1.015 (1.000-1.030) Urine Protein 30 mg/dL (NEG-TRACE) Urine Glucose (UA) Negative mg/dL (NEG) Urine Ketones (Stick) Negative mg/dL (NEG) Urine Blood Trace (NEG) Urine Nitrite Negative (NEG) Urine Bilirubin Negative (NEG) Urine Urobilinogen Dipstick 0.2 mg/dL (0.2 mg/dL) Urine Leukocyte Esterase Small (NEG) Urine RBC 0 /HPF (0-2) Urine WBC 1-4 /HPF (0-4) Urine Squamous Epithelial Cells Few /LPF Urine Bacteria 0 /HPF (0-FEW) Urine Mucus Slight /LPF Urine Opiates Screen Neg (NEG) Urine Methadone Screen Neg (NEG) Urine Barbiturates Neg (NEG) Urine Phencyclidine Screen Neg (NEG) Urine Amphetamine/Methamphetamine Neg (NEG) Urine Benzodiazepines Screen Neg (NEG) Urine Cocaine Screen Pos (NEG) Urine Cannabinoids Screen Pos (NEG) Urine Ethyl Alcohol Neg (NEG) SARS-CoV-2 Antigen (Rapid) Negative (NEGATIVE) Test 12/13/20 14:52 12/14/20 04:00 Glucose (Fingerstick) 127 mg/dL (70-99) Sodium Level 142 mmol/L (136-145) Potassium Level 4.2 mmol/L (3.5-5.1) Chloride Level 107 mmol/L (98-107) Carbon Dioxide Level 27 mmol/L (21-32) Anion Gap 8 (6-14) Blood Urea Nitrogen 14 mg/dL (7-20) Creatinine 1.2 mg/dL (0.6-1.0) Estimated GFR (Cockcroft-Gault) 55.6 BUN/Creatinine Ratio 12 (6-20) Glucose Level 135 mg/dL (70-99) Calcium Level 8.3 mg/dL (8.5-10.1) Magnesium Level 1.8 mg/dL (1.8-2.4) Total Bilirubin 0.3 mg/dL (0.2-1.0) Aspartate Amino Transf (AST/SGOT) 22 U/L (15-37) Alanine Aminotransferase (ALT/SGPT) 23 U/L (14-59) Alkaline Phosphatase 65 U/L (46-116) Total Protein 7.1 g/dL (6.4-8.2) Albumin 2.7 g/dL (3.4-5.0) Albumin/Globulin Ratio 0.6 (1.0-1.7) Laboratory Tests Test 12/13/20 14:52 12/14/20 04:00 Glucose (Fingerstick) 127 mg/dL (70-99) Sodium Level 142 mmol/L (136-145) Potassium Level 4.2 mmol/L (3.5-5.1) Chloride Level 107 mmol/L (98-107) Carbon Dioxide Level 27 mmol/L (21-32) Anion Gap 8 (6-14) Blood Urea Nitrogen 14 mg/dL (7-20) Creatinine 1.2 mg/dL (0.6-1.0) Estimated GFR (Cockcroft-Gault) 55.6 BUN/Creatinine Ratio 12 (6-20) Glucose Level 135 mg/dL (70-99) Calcium Level 8.3 mg/dL (8.5-10.1) Magnesium Level 1.8 mg/dL (1.8-2.4) Total Bilirubin 0.3 mg/dL (0.2-1.0) Aspartate Amino Transf (AST/SGOT) 22 U/L (15-37) Alanine Aminotransferase (ALT/SGPT) 23 U/L (14-59) Alkaline Phosphatase 65 U/L (46-116) Total Protein 7.1 g/dL (6.4-8.2) Albumin 2.7 g/dL (3.4-5.0) Albumin/Globulin Ratio 0.6 (1.0-1.7) Medications Current Medications Ondansetron HCl (Zofran) 4 mg 1X ONCE IVP Last administered on 12/13/20at 07:25; Start 12/13/20 at 06:45; Stop 12/13/20 at 06:46; Status DC Sodium Chloride 1,000 ml @ 1,000 mls/hr 1X ONCE IV Last administered on 12/13/20at 07:25; Start 12/13/20 at 06:45; Stop 12/13/20 at 07:44; Status DC Iohexol (Omnipaque 300 Mg/ml) 60 ml 1X ONCE IV Last administered on 12/13/20at 06:57; Start 12/13/20 at 07:00; Stop 12/13/20 at 07:01; Status DC Info (CONTRAST GIVEN -- Rx MONITORING) 1 each PRN DAILY PRN MC SEE COMMENTS; Start 12/13/20 at 07:00; Stop 12/15/20 at 06:59 Ciprofloxacin/ Dextrose 200 ml @ 200 mls/hr 1X ONCE IV Last administered on 12/13/20at 08:10; Start 12/13/20 at 08:00; Stop 12/13/20 at 08:59; Status DC Metronidazole 100 ml @ 100 mls/hr 1X ONCE IV Last administered on 12/13/20at 11:05; Start 12/13/20 at 08:00; Stop 12/13/20 at 08:59; Status DC Ondansetron HCl (Zofran) 4 mg PRN Q8HRS PRN IV NAUSEA/VOMITING; Start 12/13/20 at 08:00; Stop 12/14/20 at 07:59; Status DC Morphine Sulfate (Morphine Sulfate) 2 mg PRN Q2HR PRN IV PAIN Last administered on 12/13/20at 15:04; Start 12/13/20 at 08:00; Stop 12/14/20 at 07:59; Status DC Sodium Chloride 1,000 ml @ 120 mls/hr Q8H20M IV Last administered on 12/13/20at 11:06; Start 12/13/20 at 08:00; Stop 12/13/20 at 11:59; Status DC Iohexol (Omnipaque 300 Mg/ml) 50 ml STK-MED ONCE .ROUTE Last administered on 12/13/20at 13:29; Start 12/13/20 at 11:53; Stop 12/13/20 at 11:54; Status DC Cellulose (Surgicel Hemostat 4x8) 1 each STK-MED ONCE .ROUTE ; Start 12/13/20 at 11:54; Stop 12/13/20 at 11:54; Status DC Bupivacaine HCl (Sensorcaine Mpf 0.5%) 30 ml STK-MED ONCE .ROUTE Last administered on 12/13/20at 13:29; Start 12/13/20 at 11:54; Stop 12/13/20 at 11:54; Status DC Potassium Chloride/Dextrose/ Sod Cl 1,000 ml @ 80 mls/hr [id number] IV Last administered on 12/13/20at 16:06; Start 12/13/20 at 13:00; Stop 12/14/20 at 01:29; Status DC Acetaminophen (Tylenol) 650 mg PRN Q6HRS PRN PO MILD PAIN / TEMP > 100.3'F; Start 12/13/20 at 12:15 Tramadol HCl (Ultram) 50 mg PRN Q6HRS PRN PO PAIN; Start 12/13/20 at 12:15 [place] (Zemuron) 50 mg STK-MED ONCE .ROUTE ; Start 12/13/20 at 12:51; Stop 12/13/20 at 12:51; Status DC Neostigm[place] (Neostigmine Methylsulfate) 5 mg STK-MED ONCE .ROUTE ; Start 12/13/20 at 12:51; Stop 12/13/20 at 12:51; Status DC Glycopyrrolate (Robinul) 1 mg STK-MED ONCE .ROUTE ; Start 12/13/20 at 12:51; Stop 12/13/20 at 12:51; Status DC Sevoflurane (Ultane) 60 ml STK-MED ONCE IH ; Start 12/13/20 at 12:53; Stop 12/13/20 at 12:53; Status DC Propofol (Diprivan) 200 mg STK-MED ONCE IV ; Start 12/13/20 at 12:53; Stop 12/13/20 at 12:54; Status DC Lidocaine HCl (Lidocaine Pf 2% Vial) 5 ml STK-MED ONCE .ROUTE ; Start 12/13/20 at 12:53; Stop 12/13/20 at 12:54; Status DC Ondansetron HCl (Zofran) 4 mg STK-MED ONCE .ROUTE ; Start 12/13/20 at 12:53; Stop 12/13/20 at 12:54; Status DC Dexamethasone Sodium Phosphate (Decadron) 4 mg STK-MED ONCE .ROUTE ; Start 12/13/20 at 12:53; Stop 12/13/20 at 12:54; Status DC Ringer's Solution 1,000 ml @ 0 mls/hr Q0M IV Last administered on 12/13/20at 13:05; Start 12/13/20 at 13:15; Stop 12/13/20 at 16:44; Status DC Phenylephrine HCl (PHENYLEPHRINE in 0.9% NACL PF) 1 mg STK-MED ONCE IV ; Start 12/13/20 at 13:22; Stop 12/13/20 at 13:22; Status DC Esmolol HCl (Brevibloc) 100 mg STK-MED ONCE IVP ; Start 12/13/20 at 13:37; Stop 12/13/20 at 13:38; Status DC Fentanyl Citrate (Fentanyl 2ml Vial) 100 mcg STK-MED ONCE .ROUTE ; Start 12/13/20 at 13:39; Stop 12/13/20 at 13:39; Status DC Acetaminophen/ Hydrocodone Bitart (Lortab 5/325) 1 tab PRN Q4HRS PRN PO PAIN Last administered on 12/13/20at 16:51; Start 12/13/20 at 14:30 Acetaminophen/ Hydrocodone Bitart (Lortab 5/325) 2 tab PRN Q4HRS PRN PO PAIN Last administered on 12/14/20at 09:08; Start 12/13/20 at 14:45 Fentanyl Citrate (Fentanyl 2ml Vial) 100 mcg STK-MED ONCE .ROUTE ; Start 12/13/20 at 14:42; Stop 12/13/20 at 14:42; Status DC Fentanyl Citrate (Fentanyl 2ml Vial) 25 mcg PRN Q5MIN PRN IVP Acute Pain; Start 12/13/20 at 15:00; Stop 12/13/20 at 16:44; Status DC Fentanyl Citrate (Fentanyl 2ml Vial) 50 mcg PRN Q5MIN PRN IVP Acute Pain Last administered on 12/13/20at 14:49; Start 12/13/20 at 15:00; Stop 12/13/20 at 16:44; Status DC Hydromorphone HCl (Dilaudid) 0.5 mg PRN Q10MIN PRN IV MILD PAIN 1-3; Start 12/13/20 at 15:00; Stop 12/13/20 at 16:44; Status DC Ondansetron HCl (Zofran) 4 mg PRN Q6HRS PRN IVP Nausea, 1st Choice; Start 12/13/20 at 15:00; Stop 12/13/20 at 16:44; Status DC Prochlorperazine Edisylate (Compazine) 5 mg PRN Q6HRS PRN IVP Nausea/Vomiting, 1st Choice Last administered on 12/13/20at 15:04; Start 12/13/20 at 15:00; Stop 12/13/20 at 16:44; Status DC Insulin Human Lispro (HumaLOG VIAL for OP,RR ONLY) 0-10 units PRN Q1HR PRN SQ PER PROTOCOL; Start 12/13/20 at 15:00; Stop 12/13/20 at 16:44; Status DC Morphine Sulfate (Morphine Sulfate) 2 mg STK-MED ONCE .ROUTE ; Start 12/13/20 at 15:02; Stop 12/13/20 at 15:02; Status DC Prochlorperazine Edisylate (Compazine) 10 mg STK-MED ONCE .ROUTE ; Start 12/13/20 at 15:02; Stop 12/13/20 at 15:02; Status DC Active Scripts Active Zofran (Ondansetron Hcl) 4 Mg Tablet 1 Tab PO Q6HRS [place] 5-325 Tablet (Acetaminophen/Hydrocodone Bitart) 1 Each Tablet 1 Tab PO Q6HRS Bactrim Ds Tablet (Sulfamethoxazole/Trimethoprim) 1 Each Tablet 1 Tab PO BID Bactrim Ds Tablet (Sulfamethoxazole/Trimethoprim) 1 Each Tablet 1 Tab PO BID Vitals/I & O Vital Sign - Last 24 Hours 12/13/20 12/13/20 12/13/20 12/13/20 12:48 14:33 14:33 14:45 Temp 98.8 98.8 98.8 98.8 Pulse 65 65 59 Resp 23 16 16 B/P (MAP) 133/83 173/91 143/74 Pulse Ox 98 100 100 O2 Delivery Room Air Mask Simple Mask Simple Mask O2 Flow Rate 6 6 6 12/13/20 12/13/20 12/13/20 12/13/20 14:49 14:54 15:00 15:04 Pulse 62 Resp 16 16 16 16 B/P (MAP) 135/81 Pulse Ox 100 100 96 100 O2 Delivery Simple Mask Simple Mask Room Air Simple Mask O2 Flow Rate 6.0 6.0 6.0 12/13/20 12/13/20 12/13/20 12/13/20 15:15 15:16 16:51 17:55 Temp 98.8 98.8 Pulse 58 Resp 16 B/P (MAP) 135/81 Pulse Ox 96 96 96 O2 Delivery Room Air Room Air Room Air Room Air 12/13/20 12/13/20 12/13/20 12/13/20 18:45 19:45 21:00 23:00 Temp 97.5 97.1 97.5 97.1 Pulse 55 57 71 Resp 16 18 B/P (MAP) 139/64 (89) 151/97 (115) 143/89 (107) Pulse Ox 97 98 O2 Delivery Room Air 12/14/20 12/14/20 12/14/20 12/14/20 03:00 07:00 08:00 09:08 Temp 97.9 97.7 97.9 97.7 Pulse 76 67 Resp 18 18 B/P (MAP) 128/79 (95) 133/74 (93) Pulse Ox 96 99 99 O2 Delivery Room Air Room Air Room Air Room Air 12/14/20 12/14/20 11:09 11:36 Temp 98.3 98.3 Pulse 67 Resp 20 B/P (MAP) 155/96 (115) Pulse Ox 99 97 O2 Delivery Room Air Room Air O2 Flow Rate 6.0 Intake and Output 12/13/20 12/13/20 12/14/20 15:00 23:00 07:00 Intake Total 1000 ml 240 ml 700 ml Output Total 20 ml 300 ml 250 ml Balance 980 ml -60 ml 450 ml Justifications for Admission Other Justification SAHRA MATTA MD Dec 14, 2020 11:51
--- NOTE | 2020-12-14 12:56 | PDOC3 ---
Discharge Summary Visit Information Date of Admission: Dec 13, 2020 Date of Discharge: Dec 14, 2020 Final Diagnosis Problems Medical Problems: (1) Cholecystitis Status: Acute Brief Hospital Course Allergies Allergies Coded Allergies Type Severity Reaction Last Updated Verified Penicillins Allergy Intermediate 01/02/14 Yes Vital Signs Vital Signs Date Time Temp Pulse Resp B/P (MAP) Pulse Ox O2 Delivery O2 Flow Rate FiO2 12/14/20 11:36 98.3 67 20 155/96 (115) 97 Room Air 98.3 12/14/20 11:09 6.0 Lab Results Laboratory Tests Test 12/13/20 05:52 12/13/20 06:07 12/13/20 06:25 12/13/20 08:14 Serum Test, Qualitative Negative (NEG) White Blood Count 4.4 x10^3/uL (4.0-11.0) Red Blood Count 5.16 x10^6/uL (3.50-5.40) Hemoglobin 15.3 g/dL (12.0-15.5) Hematocrit 45.4 % (36.0-47.0) Mean Corpuscular Volume 88 fL (79-100) Mean Corpuscular Hemoglobin 30 pg (25-35) Mean Corpuscular Hemoglobin Concent 34 g/dL (31-37) Red Cell Distribution Width 13.6 % (11.5-14.5) Platelet Count 245 x10^3/uL (140-400) Neutrophils (%) (Auto) 34 % (31-73) Lymphocytes (%) (Auto) 56 % (24-48) Monocytes (%) (Auto) 5 % (0-9) Eosinophils (%) (Auto) 3 % (0-3) Basophils (%) (Auto) 1 % (0-3) Neutrophils # (Auto) 1.5 x10^3/uL (1.8-7.7) Lymphocytes # (Auto) 2.5 x10^3/uL (1.0-4.8) Monocytes # (Auto) 0.2 x10^3/uL (0.0-1.1) Eosinophils # (Auto) 0.1 x10^3/uL (0.0-0.7) Basophils # (Auto) 0.0 x10^3/uL (0.0-0.2) Sodium Level 140 mmol/L (136-145) Potassium Level 3.2 mmol/L (3.5-5.1) Chloride Level 103 mmol/L (98-107) Carbon Dioxide Level 33 mmol/L (21-32) Anion Gap 4 (6-14) Blood Urea Nitrogen 22 mg/dL (7-20) Creatinine 1.3 mg/dL (0.6-1.0) Estimated GFR (Cockcroft-Gault) 50.7 BUN/Creatinine Ratio 17 (6-20) Glucose Level 102 mg/dL (70-99) Calcium Level 9.7 mg/dL (8.5-10.1) Magnesium Level 2.1 mg/dL (1.8-2.4) Total Bilirubin 0.3 mg/dL (0.2-1.0) Aspartate Amino Transf (AST/SGOT) 16 U/L (15-37) Alanine Aminotransferase (ALT/SGPT) 20 U/L (14-59) Alkaline Phosphatase 78 U/L (46-116) Troponin I Quantitative < 0.017 ng/mL (0.000-0.055) Total Protein 8.6 g/dL (6.4-8.2) Albumin 3.5 g/dL (3.4-5.0) Albumin/Globulin Ratio 0.7 (1.0-1.7) Lipase 89 U/L (73-393) Urine Collection Type Unknown Urine Color Yellow Urine Clarity Clear Urine pH 7.5 (<5.0-8.0) Urine Specific [place] 1.015 (1.000-1.030) Urine Protein 30 mg/dL (NEG-TRACE) Urine Glucose (UA) Negative mg/dL (NEG) Urine Ketones (Stick) Negative mg/dL (NEG) Urine Blood Trace (NEG) Urine Nitrite Negative (NEG) Urine Bilirubin Negative (NEG) Urine Urobilinogen Dipstick 0.2 mg/dL (0.2 mg/dL) Urine Leukocyte Esterase Small (NEG) Urine RBC 0 /HPF (0-2) Urine WBC 1-4 /HPF (0-4) Urine Squamous Epithelial Cells Few /LPF Urine Bacteria 0 /HPF (0-FEW) Urine Mucus Slight /LPF Urine Opiates Screen Neg (NEG) Urine Methadone Screen Neg (NEG) Urine Barbiturates Neg (NEG) Urine Phencyclidine Screen Neg (NEG) Urine Amphetamine/Methamphetamine Neg (NEG) Urine Benzodiazepines Screen Neg (NEG) Urine Cocaine Screen Pos (NEG) Urine Cannabinoids Screen Pos (NEG) Urine Ethyl Alcohol Neg (NEG) SARS-CoV-2 Antigen (Rapid) Negative (NEGATIVE) Test 12/13/20 14:52 12/14/20 04:00 Glucose (Fingerstick) 127 mg/dL (70-99) Sodium Level 142 mmol/L (136-145) Potassium Level 4.2 mmol/L (3.5-5.1) Chloride Level 107 mmol/L (98-107) Carbon Dioxide Level 27 mmol/L (21-32) Anion Gap 8 (6-14) Blood Urea Nitrogen 14 mg/dL (7-20) Creatinine 1.2 mg/dL (0.6-1.0) Estimated GFR (Cockcroft-Gault) 55.6 BUN/Creatinine Ratio 12 (6-20) Glucose Level 135 mg/dL (70-99) Calcium Level 8.3 mg/dL (8.5-10.1) Magnesium Level 1.8 mg/dL (1.8-2.4) Total Bilirubin 0.3 mg/dL (0.2-1.0) Aspartate Amino Transf (AST/SGOT) 22 U/L (15-37) Alanine Aminotransferase (ALT/SGPT) 23 U/L (14-59) Alkaline Phosphatase 65 U/L (46-116) Total Protein 7.1 g/dL (6.4-8.2) Albumin 2.7 g/dL (3.4-5.0) Albumin/Globulin Ratio 0.6 (1.0-1.7) Laboratory Tests Test 12/13/20 14:52 12/14/20 04:00 Glucose (Fingerstick) 127 mg/dL (70-99) Sodium Level 142 mmol/L (136-145) Potassium Level 4.2 mmol/L (3.5-5.1) Chloride Level 107 mmol/L (98-107) Carbon Dioxide Level 27 mmol/L (21-32) Anion Gap 8 (6-14) Blood Urea Nitrogen 14 mg/dL (7-20) Creatinine 1.2 mg/dL (0.6-1.0) Estimated GFR (Cockcroft-Gault) 55.6 BUN/Creatinine Ratio 12 (6-20) Glucose Level 135 mg/dL (70-99) Calcium Level 8.3 mg/dL (8.5-10.1) Magnesium Level 1.8 mg/dL (1.8-2.4) Total Bilirubin 0.3 mg/dL (0.2-1.0) Aspartate Amino Transf (AST/SGOT) 22 U/L (15-37) Alanine Aminotransferase (ALT/SGPT) 23 U/L (14-59) Alkaline Phosphatase 65 U/L (46-116) Total Protein 7.1 g/dL (6.4-8.2) Albumin 2.7 g/dL (3.4-5.0) Albumin/Globulin Ratio 0.6 (1.0-1.7) Brief Hospital Course Ms. Ferrer is a 60 old female who presented with acute cholecystectomy. Consultations with general surgery. She had laparoscopic cholecystectomy and tolerated her diet the next day with minimal vertebral tenderness. She was stable for discharge home. Discharge Information Condition at Discharge: Improved Follow Up: Weeks Disposition/Orders: D/C to Home Scheduled Hydrocodone/Apap 5-325 ([place] 5-325 Tablet) 1 Each Tablet, 1 TAB PO Q6HRS, #20 Prescribed by: Dagmar Bates APRN on 04/03/192036 Last Action: Reviewed on 12/13/20 1010 by CARLA JON Ondansetron Hcl (Zofran) 4 Mg Tablet, 1 TAB PO Q6HRS, #20 Prescribed by: Dagmar Bates APRN on 04/20/192100 Last Action: Reviewed on 12/13/20 1010 by CARLA JON Sulfamethoxazole/Trimethoprim (Bactrim Ds Tablet) 1 Each Tablet, 1 TAB PO BID, #14 Prescribed by: AGNIESZKA ABDUL APRN on 02/23/19 1546 Last Action: Reviewed on 12/13/20 1010 by CARLA JON Sulfamethoxazole/Trimethoprim (Bactrim Ds Tablet) 1 Each Tablet, 1 TAB PO BID, #20 Prescribed by: Dagmar Bates APRN on 04/03/192036 Justicifation of Admission Dx: Justifications for Admission: Justification of Admission Dx: Yes RODRIGO MACDONALD MD Dec 14, 2020 12:55
--- NOTE | 2020-12-14 14:47 | NUR ---
Discharge Note: [place] [address] Discharge instructions and discharge home medications reviewed with Patient and a copy given. All questions have been answered and understanding verbalized. The following instructions and handouts were given: follow up instructions, prescription for Lortab. Discontinued lines and drains: 20 gauge left FA, tip intact. patient tolerated well. Patient discharged to home with self care via family.
== END 2020-12-14 14:48 | disposition home or self-care (01) | DRG 419 ==
LOC: ER 04:31 → 6 SOUTH 08:03
PROVIDERS: ADMIT Internal Medicine; ATTEND Internal Medicine
PROC: BF101ZZ Fluoroscopy of Bile Ducts using Low Osmolar Contrast (ICD-10-PCS; 2020-12-13)
PROC: 0FT44ZZ Resection of Gallbladder, Percutaneous Endoscopic Approach (ICD-10-PCS; principal; 2020-12-13 13:15)
DX: K80.12 Calculus of gallbladder with acute and chronic cholecystitis without obstruction (principal); E11.22 Type 2 diabetes mellitus with diabetic chronic kidney disease; E78.5 Hyperlipidemia, unspecified; E87.6 Hypokalemia; F17.210 Nicotine dependence, cigarettes, uncomplicated; I12.9 Hypertensive chronic kidney disease with stage 1 through stage 4 chronic kidney disease, or unspecified chronic kidney disease; I25.2 Old myocardial infarction; J45.909 Unspecified asthma, uncomplicated; M32.9 Systemic lupus erythematosus, unspecified; M43.16 Spondylolisthesis, lumbar region; N18.9 Chronic kidney disease, unspecified; Z20.822 Contact with and (suspected) exposure to COVID-19; Z82.49 Family history of ischemic heart disease and other diseases of the circulatory system; F14.10 Cocaine abuse, uncomplicated; Z88.0 Allergy status to penicillin
CPT/HCPCS: 36415; 71045; 74177; 74300; 80053; 80307; 81001; 82962; 83690; 83735; 84484; 84703; 85025; 87077; 87086; 87186; 87426; 93005; 96361; 96365; 96375; 99285; A4213; A4314; A4364; A4452; A4657; A4930; A6219; C1887; J0744; J0780; J1100; J2270; J2370; J2405; J2704; J2710; J3010; J3480; J3490; J7030; J7120; Q9967; U0003; G0378

== ENCOUNTER → 2021-01-28 | Outpatient (CLI) | payer MEDICAID, OTHER | LOC: PF 10:51 | DX: J44.9 Chronic obstructive pulmonary disease, unspecified (principal) | CPT/HCPCS: 94060; 94640; 94729; 94664 ==